=== PATIENT | female | born 1980 | race Caucasian/White ===

== ENCOUNTER 2016-11-09 14:14 | Inpatient (IN) | payer OTHER ==
[~2016-11-09] VITALS: Ht 160 cm; Wt 7.7 kg
[~2016-11-09 14:14] MED LIST changes: -DICL10TA PO; -METO10TA2 PO; -NS 1,000 ML IV SCH; -PROM25SU2 PR; -PROM25TA GT; -PROMETHAZINE 25 MG TAB As Ordered ONE; -PROMETHAZINE INJ 25 MG/ML VIAL (J2550) IM PRN; -PROMETHAZINE INJ 25 MG/ML VIAL (J2550) IV PRN; -SALI0.9I2 IV; -ZOLO25TA PO
[2016-11-09 15:38] LABS: BASO % 0.3 % (0.0-1.0); EOS % 0.5 % (0.0-3.0); LARGE UNSTAINED CELL # 0.2 K/mm3 (0.0-0.4); LYMPH # 1.5 K/mm3 (1.5-4.5); MEAN CORPUSCULAR HGB CONC 33.9 g/dl (32.0-36.5); MEAN CORPUSCULAR VOLUME 82.5 fl (80.0-96.0); MONO # 0.3 K/mm3 (0.0-0.8); MONO % 4.2 % (0.0-5.0); NEUTROPHILS # 5.8 K/mm3 (1.8-7.7); NEUTROPHILS % 73.9 % (36.0-66.0); PLATELET COUNT, AUTOMATED 168 k/mm3 (150-450); RED CELL DISTRIBUTION WIDTH 14.6 % (11.5-14.5); WHITE BLOOD COUNT 7.8 K/mm3 (4.0-10.0)
[2016-11-09 15:42] LABS: CALCIUM OXALATE CRYSTALS SMALL
[2016-11-09 15:57] LABS: ANION GAP 12 MEQ/L (8-16); BLOOD UREA NITROGEN 10 MG/DL (7-18); CALCIUM LEVEL 9.5 MG/DL (8.5-10.1); CARBON DIOXIDE LEVEL 23 MEQ/L (21-32); CHLORIDE LEVEL 104 MEQ/L (98-107); CREATININE FOR GFR 0.57 MG/DL (0.55-1.02); GLOMERULAR FILTRATION RATE > 60.0 (>60); GLUCOSE, FASTING 80 MG/DL (70-105); POTASSIUM SERUM 3.4 MEQ/L (3.5-5.1); SODIUM LEVEL 139 MEQ/L (136-145)
[2016-11-09 17:23] LABS: ALBUMIN 3.6 GM/DL (3.2-5.2); ALBUMIN/GLOBULIN RATIO 0.86 (1.00-1.93); ALKALINE PHOSPHATASE 128 U/L (45-117); ALT/SGPT 32 U/L (12-78); AST/SGOT 17 U/L (15-37); BILIRUBIN,DIRECT 0.2 MG/DL (0.0-0.2); BILIRUBIN,TOTAL 0.6 MG/DL (0.2-1.0); TOTAL PROTEIN 7.8 GM/DL (6.4-8.2)
[2016-11-09] MEDS ORDERED: PROMETHAZINE INJ 25 MG/ML VIAL (J2550) As Ordered ONE (17:43)
[2016-11-09] MEDS: THIAMINE HCL IV SCH (18:15)
[2016-11-09] MEDS: FOLIC ACID IV SCH (18:15)
[2016-11-09] MEDS: MULTIVITAMIN ADULT IV SCH (18:15)
[2016-11-09] MEDS: [UNRECOGNIZED DRUG - OTHER] IV SCH (18:15)
[2016-11-09] MEDS ORDERED: DICL10TA PO ×2 (18:29)
[2016-11-09] MEDS ORDERED: METO10TA2 PO (18:31)
[2016-11-09] MEDS ORDERED: ZOLO25TA PO (18:31)
--- NOTE | 2016-11-09 18:53 | EDDOCDS ---
Nurse's Notes [facility] Name: Althea Ch Age: 36 yrs Sex: Female : 1980 Arrival Date: 11/09/2016 Time: 14:14 Bed I5 / M5 Private MD: Rere Meza A Diagnosis: Hyperemesis gravidarum with metabolic disturbance;Hypokalemia;Dehydration Presentation: 11/09 14:26 Presenting complaint: Patient states: she is severely dehydrated and her OB sent her kcs here for fluids - is scheduled for a PICC line but can't get in until the . Hasn't been able to eat or drink in days. Adult Sepsis Screening: The patient does not have new or worsening altered mentation. Patient's respiratory rate is less than 22. Systolic blood pressure is greater than 100. Patient has a qSOFA score of 0- Negative Sepsis Screen. Suicide/Homicide risk assessment- the patient denies having any suicidal and/or homicidal ideations and does not present with any other emotional, behavioral or mental health complaints. Status: The patient is a dependent. Transition of care: patient was not received from another setting of care. 14:26 Acuity: SAMMY Level 3 kcs 14:26 Method Of Arrival: Walkin/Carried/Asstd kcs Triage Assessment: 14:30 General: Appears comfortable, slender, well developed, well nourished, well groomed, kcs Behavior is cooperative, pleasant. Pain: Location: "kidneys" Pain currently is 3 out of 10 on a pain scale. HIV screening NA for this visit Offered previously. Neurological: Level of Consciousness is awake, alert. Respiratory: Airway is patent Respiratory effort is even, unlabored, Respiratory pattern is regular, symmetrical. Derm: Skin is intact, is healthy with good turgor, Skin is dry, Skin is normal. 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 Diclegis 10-10 mg oral TbEC 2 tabs nightly 2. Diclegis 10-10 mg oral TbEC 1 tab morning and afternoon 3. Reglan Unknown Oral as needed 4. Zoloft 25 mg Oral tab 1 tab once daily - PMHx: Kidney stones; Depression; - PSHx: Tonsillectomy; renal stents; - Social history: Smoking status: Patient states former smoker of tobacco. No barriers to communication noted, The patient speaks fluent Mozambican. - Family history: Not pertinent. - : The pt / caregiver states he / she is not on anticoagulants. Home medication list is obtained from the patient, [employer] import data. - Exposure Risk Screening:: None identified. Screenin:44 Screening information is obtained from the patient. Fall risk: No risks identified. bcj Assistance ADL's: requires no assistance with activities of daily living. Abuse/DV Screen: The patient / caregiver reports he/she is: not in a situation that causes fear, pain or injury. Nutritional screening: No deficits noted. Advance Directives: Currently, there is no health care proxy. home support is adequate. Assessment: 15:44 General: Appears in no apparent distress, comfortable, Behavior is cooperative. Pain: bcj Denies pain. GI: Abdomen is gravid Bowel sounds present X 4 quads. Abd is soft and non tender X 4 quads. 17:40 General: Appears in no apparent distress, pt transferred to [facility] [place] and my care,. GI: mk4 Reports nausea. 18:31 Reassessment: Patient states symptoms have improved. iv banana bag added to IV infusing mk4 . General: Appears in no apparent distress, comfortable. 18:45 Reassessment: Patient states feeling better. Patient states symptoms have improved. mk4 Vital Signs: 14:17 BP 129 / 64; Pulse 92; Resp 18 S; Temp 98.6(O); Pulse Ox 98% on R/A; Weight 74.39 kg gr2 (R); Height 5 ft. 3 in. (160.02 cm); Pain 4/10; 18:44 BP 101 / 54; Pulse 73; Resp 20; Temp 98.3; mk4 14:17 Body Mass Index 29.05 (74.39 kg, 160.02 cm) gr2 Vitals: 14:17 Log In Time: November 09, 2016 at 14:17. gr2 ED Course: 14:16 Patient visited by Brenden Cheung. gr2 14:16 Rere Meza is Private Physician. gr2 14:16 Patient moved to Waiting gr2 14:18 Patient visited by Brenden Cheung. gr2 14:18 Patient moved to Pre RCE gr2 14:28 Triage Initiated kcs 15:04 Patient moved to Triage 1 ar3 15:06 Leonid Moeller PA-C is PHCP. ar2 15:06 Anjelica Arnold MD is Attending Physician. ar2 15:06 Patient visited by Leonid Moeller PA-C. ar2 15:14 Patient moved to PD2 ar3 15:31 UA Sent. ar3 15:31 MED Profile Sent. ar3 15:31 CBC with Diff Sent. ar3 15:44 No apparent distress. Resting quietly. awaiting re-evaluation by ER physician. bcj 15:44 The patient / caregiver is instructed regarding the plan of care and ED course. bcj 15:44 Inserted saline lock: 20 gauge in right antecubital area. Labs drawn. (by ED staff). bcj Sent per order to lab. Urine collected. Clean catch specimen. Urine specimen sent to lab. 15:45 Patient visited by Qamar Wilkerson RN. bcj 16:27 [facility] Payment Agreement was scanned into Exent and attached to record. ks16 17:22 Desire Dejesus MD is Hospitalizing Provider. ar2 17:34 Admission Orders was scanned into Exent and attached to record. lbd 17:40 Patient moved to I5 / M5 srm 18:12 Patient visited by Helen Monroy RN. mk4 18:47 No procedures done that require assistance. mk4 Administered Medications: 15:43 Drug: NS 0.9% 1000 ml [sodium chloride 0.9 % intravenous solution] Route: IV; Rate: bcj bolus; Site: right antecubital; 17:55 Drug: Promethazine 12.5 mg [promethazine 25 mg/mL injection solution (0.5 mL)] Route: mk4 IVP; Site: right antecubital; 18:31 Drug: Banana Bag - (NS 0.9% 1000 ml, folic acid 1 mg, Thiamine 100 mg, Infuvite Adult 1 mk4 amp) Route: IV; Rate: 100 mL/hr; Site: right antecubital; Order Results: Lab Order: CBC with Diff; SPEC'M 11/09/16 15:26 Test: WHITE BLOOD COUNT; Value: 7.8; Range: 4.0-10.0; Units: K/mm3; Status: F Test: RED BLOOD COUNT; Value: 4.82; Range: 4.00-5.40; Units: M/mm3; Status: F Test: HEMOGLOBIN; Value: 13.5; Range: 12.0-16.0; Units: g/dl; Status: F Test: HEMATOCRIT; Value: 39.8; Range: 36.0-47.0; Units: %; Status: F Test: MEAN CORPUSCULAR VOLUME; Value: 82.5; Range: 80.0-96.0; Units: fl; Status: F Test: MEAN CORPUSCULAR HEMOGLOBIN; Value: 28.0; Range: 27.0-33.0; Units: pg; Status: F Test: MEAN CORPUSCULAR HGB CONC; Value: 33.9; Range: 32.0-36.5; Units: g/dl; Status: F Test: RED CELL DISTRIBUTION WIDTH; Value: 14.6; Range: 11.5-14.5; Abnormal: Above high normal; Units: %; Status: F Test: PLATELET COUNT, AUTOMATED; Value: 168; Range: 150-450; Units: k/mm3; Status: F Test: NEUTROPHILS %; Value: 73.9; Range: 36.0-66.0; Abnormal: Above high normal; Units: %; Status: F Test: LYMPH %; Value: 19.0; Range: 24.0-44.0; Abnormal: Below low normal; Units: %; Status: F Test: MONO %; Value: 4.2; Range: 0.0-5.0; Units: %; Status: F Test: EOS %; Value: 0.5; Range: 0.0-3.0; Units: %; Status: F Test: BASO %; Value: 0.3; Range: 0.0-1.0; Units: %; Status: F Test: LARGE UNSTAINED CELL %; Value: 2.0; Range: 0.0-4.0; Units: %; Status: F Test: NEUTROPHILS #; Value: 5.8; Range: 1.8-7.7; Units: K/mm3; Status: F Test: LYMPH #; Value: 1.5; Range: 1.5-4.5; Units: K/mm3; Status: F Test: MONO #; Value: 0.3; Range: 0.0-0.8; Units: K/mm3; Status: F Test: EOS #; Value: 0.0; Range: 0.0-0.50; Units: K/mm3; Status: F Test: BASO #; Value: 0.0; Range: 0.0-0.2; Units: K/mm3; Status: F Test: LARGE UNSTAINED CELL #; Value: 0.2; Range: 0.0-0.4; Units: K/mm3; Status: F Lab Order: MED Profile; SPEC'M 11/09/16 15:26 Test: GLUCOSE, FASTING; Value: 80; Range: 70-105; Units: MG/DL; Status: F Test: BLOOD UREA NITROGEN; Value: 10; Range: 7-18; Units: MG/DL; Status: F Test: CREATININE FOR GFR; Value: 0.57; Range: 0.55-1.02; Units: MG/DL; Status: F Test: GLOMERULAR FILTRATION RATE; Value: > 60.0; Range: >60; Status: F Test: SODIUM LEVEL; Value: 139; Range: 136-145; Units: MEQ/L; Status: F Test: POTASSIUM SERUM; Value: 3.4; Range: 3.5-5.1; Abnormal: Below low normal; Units: MEQ/L; Status: F Test: CHLORIDE LEVEL; Value: 104; Range: 98-107; Units: MEQ/L; Status: F Test: CARBON DIOXIDE LEVEL; Value: 23; Range: 21-32; Units: MEQ/L; Status: F Test: ANION GAP; Value: 12; Range: 8-16; Units: MEQ/L; Status: F Test: CALCIUM LEVEL; Value: 9.5; Range: 8.5-10.1; Units: MG/DL; Status: F Test Note: ; Units are mL/min/1.73 m2 Chronic Kidney Disease Staging per NKF: Stage I & II GFR >=60 Normal to Mildly Decreased Stage III GFR 30-59 Moderately Decreased Stage IV GFR 15-29 Severely Decreased Stage V GFR <15 Very Little GFR Left ESRD GFR <15 on MEDICAL ANTHROPOLOGIST Lab Order: UA; SPEC'M 11/09/16 15:22 Test: APPEARANCE, URINE; Value: HAZY; Range: CLEAR; Status: F Test: COLOR, URINE; Value: TEJA; Range: YELLOW; Status: F Test: PH,URINE; Value: 5.0; Range: 5.0-9.0; Units: UNITS; Status: F Test: SPECIFIC GRAVITY URINE AUTO; Value: 1.028; Range: 1.002-1.035; Status: F Test: PROTEIN, URINE AUTO; Value: 2+; Range: NEGATIVE; Abnormal: Above high normal; Units: mg/dL; Status: F Test: GLUCOSE, URINE (UA) AUTO; Value: NEGATIVE; Range: NEGATIVE; Units: mg/dL; Status: F Test: KETONE, URINE AUTO; Value: 2+; Range: NEGATIVE; Abnormal: Above high normal; Units: mg/dL; Status: F Test: UROBILINOGEN, URINE AUTO; Value: 4.0; Range: 0.0-2.0; Abnormal: Above high normal; Units: mg/dL; Status: F Test: BILIRUBIN, URINE AUTO; Value: 1+; Range: NEGATIVE; Abnormal: Above high normal; Status: F Test: NITRITE, URINE AUTO; Value: NEGATIVE; Range: NEGATIVE; Status: F Test: LEUKOCYTE ESTERASE, URINE AUTO; Value: NEGATIVE; Range: NEGATIVE; Status: F Test: BLOOD, URINE BLOOD; Value: NEGATIVE; Range: NEGATIVE; Status: F Test: WBC, URINE AUTO; Value: 3; Range: 0-3; Units: /HPF; Status: F Test: RBC, URINE AUTO; Value: 4; Range: 0-3; Abnormal: Above high normal; Units: /HPF; Status: F Test: BACTERIA, URINE AUTO; Value: 1+; Range: NEGATIVE; Abnormal: Above high normal; Status: F Test: SQUAMOUS EPITHELIAL CELL UR AU; Value: 8; Range: 0-6; Units: /HPF; Status: F Test: MUCUS, URINE; Value: LARGE; Range: NEGATIVE; Status: F Test: HYALINE CAST, URINE AUTO; Value: 0; Range: 0-1; Units: /LPF; Status: F Test: CALCIUM OXALATE CRYSTALS; Value: SMALL; Range: NONE; Status: F Lab Order: LIVER PROFILE; SPEC'M 11/09/16 15:26 Test: AST/SGOT; Value: 17; Range: 15-37; Units: U/L; Status: F Test: ALT/SGPT; Value: 32; Range: 12-78; Units: U/L; Status: F Test: ALKALINE PHOSPHATASE; Value: 128; Range: 45-117; Abnormal: Above high normal; Units: U/L; Status: F Test: BILIRUBIN,TOTAL; Value: 0.6; Range: 0.2-1.0; Units: MG/DL; Status: F Test: BILIRUBIN,DIRECT; Value: 0.2; Range: 0.0-0.2; Units: MG/DL; Status: F Test: TOTAL PROTEIN; Value: 7.8; Range: 6.4-8.2; Units: GM/DL; Status: F Test: ALBUMIN; Value: 3.6; Range: 3.2-5.2; Units: GM/DL; Status: F Test: ALBUMIN/GLOBULIN RATIO; Value: 0.86; Range: 1.00-1.93; Abnormal: Below low normal; Status: F Outcome: 17:22 Decision to Hospitalize by Provider. ar2 18:46 Discharge Assessment: Patient awake, alert and oriented x 3. No cognitive and/or mk4 functional deficits noted. Patient verbalized understanding of disposition instructions. Patient awake and alert. Discharge Assessment: patient administered narcotics - no. Admitted to Med/Surg The following High Risk Discharge criteria are identified: None. Condition: stable. Ultrasound Study completed. Property sent home with patient. 18:52 Patient left the ED. mk4 Signatures: Ernestine Santo, RN RN Olga Dumont, Java Jsf Developer Unit lbd Qamar Wilkerson RN RN bcj Michelson, Staci RN RN Leonid Pate PA-C PA-C ar2 Treva Dubose, ROCAEL STAVE PLANER TENDER ar3 Brenden Cheung gr2 Helen Monroy RN RN mk4 Valentine Marcelino, Reg Reg ks16 MTDD
--- NOTE | 2016-11-09 18:53 | EDDOCDS ---
Physician Documentation [facility] Name: Althea Ch Age: 36 yrs Sex: Female : 1980 Arrival Date: 11/09/2016 Time: 14:14 Bed I5 / M5 Private MD: Rere Meza A Disposition: 11/09/16 17:22 Hospitalization ordered by Desire Dejesus for Inpatient Admission. Preliminary diagnosis are Hyperemesis gravidarum with metabolic disturbance, Hypokalemia, Dehydration. - Bed requested for Tomeka Post/Ante . - Status is Inpatient Admission. mk4 - Condition is Stable. - Problem is new. - Symptoms are unchanged. Historical: - Allergies: Ceclor (Hives); Erythromycin (Hives); PENICILLINS (Anaphylaxis); SULFA (SULFONAMIDES) (Hives); - Home Meds: 1. Diclegis 10-10 mg oral TbEC 2 tabs nightly 2. Diclegis 10-10 mg oral TbEC 1 tab morning and afternoon 3. Reglan Unknown Oral as needed 4. Zoloft 25 mg Oral tab 1 tab once daily - PMHx: Kidney stones; Depression; - PSHx: Tonsillectomy; renal stents; - Social history: Smoking status: Patient states former smoker of tobacco. No barriers to communication noted, The patient speaks fluent Montenegrin. - Family history: Not pertinent. - : The pt / caregiver states he / she is not on anticoagulants. Home medication list is obtained from the patient, [employer] import data. - Exposure Risk Screening:: None identified. TRANSITION MGR: 11/09 14:30 4, Full Term 3, Premature 0, 0, Living 3, LMP 07/2016 kcs 18:38 LMP 07/27/2016, Verified, EDC 05/03/2017, Gestational age from LMP: 15 weeks 0 mk4 days Vital Signs: 14:17 BP 129 / 64; Pulse 92; Resp 18 S; Temp 98.6(O); Pulse Ox 98% on R/A; Weight 74.39 kg / gr2 164 lbs (R); Height 5 ft. 3 in. (160.02 cm); Pain 4/10; 18:44 BP 101 / 54; Pulse 73; Resp 20; Temp 98.3; mk4 14:17 Body Mass Index 29.05 (74.39 kg, 160.02 cm) gr2 MDM: 15:13 IV Saline Lock ordered. ar2 15:13 NS 0.9% 1000 ml IV at bolus once ordered. ar2 15:13 Heart Tones ordered. ar2 15:13 CBC with Diff Ordered. EDMS 15:13 MED Profile Ordered. EDMS 15:13 UA Ordered. EDMS 16:27 Financial registration complete. ks16 16:27 [facility] Payment Agreement was scanned into Reve[employer] and attached to record. ks16 16:56 CBC with Diff Reviewed. ar2 16:56 MED Profile Reviewed. ar2 16:56 UA Reviewed. ar2 17:09 LIVER PROFILE Ordered. EDMS 17:10 MED Profile Reviewed. ar2 17:21 Banana Bag - (NS 0.9% 1000 ml, folic acid 1 mg, Thiamine 100 mg, Infuvite Adult 1 amp) ar2 IV at 100 mL/hr continuous; *use both vials for Infuvite* ordered. 17:21 Promethazine 12.5 mg IVP once; dilute and administer 30-60 minutes ordered. ar2 17:22 BED REQUEST+ADM ordered. EDMS 17:34 Admission Orders was scanned into Reve[employer] and attached to record. lbd Administered Medications: 15:43 Drug: NS 0.9% 1000 ml [sodium chloride 0.9 % intravenous solution] Route: IV; Rate: bcj bolus; Site: right antecubital; 17:55 Drug: Promethazine 12.5 mg [promethazine 25 mg/mL injection solution (0.5 mL)] Route: mk4 IVP; Site: right antecubital; 18:31 Drug: Banana Bag - (NS 0.9% 1000 ml, folic acid 1 mg, Thiamine 100 mg, Infuvite Adult 1 mk4 amp) Route: IV; Rate: 100 mL/hr; Site: right antecubital; Signatures: Dispatcher [employer] EDMS Ernestine Santo RN RN kcs Daly, Linda, Bucket Wash Operator Unit lbd Qamar Wilkerson RN RN bcj Robertshaw, Aaron, HEMALATHA PAGelacio ar2 Helen Monroy RN RN 4 Allyn Molina RN RN mem Sorenson, Kimberly, Reg Reg ks16 The chart was reviewed and I authenticate all verbal orders and agree with the evaluation and treatment provided.Corrections: (The following items were deleted from the chart) 17:09 17:04 LIVER PROFILE+LAB ordered. EDMS EDMS Attachments: 16:27 [facility] Payment Agreement ks16 17:34 Admission Orders lbd MTDD
[2016-11-10] MEDS ORDERED: PROMETHAZINE 12.5 MG SUPP PR PRN (11:00)
--- NOTE | 2016-11-10 11:31 | HPE ---
DATE OF ADMISSION: 11/09/2016 REASON FOR ADMISSION: Hyperemesis. HISTORY OF PRESENT ILLNESS: Ms. Ch is a 36-year-old, 4, para 3, who presents at 13 weeks 3 days estimated gestational age by first trimester ultrasound with nausea, vomiting. She initially presented to the emergency department for severe dehydration. This has been her fourth visit to the emergency department for nausea, vomiting with . She denies any fever, chills, vaginal bleeding, abdominal pain or cramping. Her course has been remarkable for hyperemesis. She indicated her first trimester has been appropriate. PAST MEDICAL HISTORY: History of depression. History of kidney stones. PAST SURGICAL HISTORY: None. OBSTETRICAL HISTORY: 4, para 3, she has had three term vaginal deliveries she has proved with 8 pounds 10 ounces. Her last was complicated with severe hyperemesis. MEDICATIONS: - Diclegis - Phenergan - Zoloft ALLERGIES: PENICILLIN, SULFA, ERYTHROMYCIN. SOCIAL HISTORY: Denies any alcohol, tobacco or drug use during her . PHYSICAL EXAMINATION: Vital signs are stable. She is afebrile. She has positive heart tones. Her lungs are clear to auscultation bilaterally. Cardiovascular: Heart regular rate and rhythm. Abdomen: Soft, nontender. LABS: Chemistry was remarkable only for hypokalemia with potassium of 3.4. White blood cells were 7.8, hematocrit 39.8, hemoglobin 13.5, platelets 168,000. ASSESSMENT: Ms. Ch is a 36-year-old 4, para 3, at 13 weeks 3 days with hyperemesis. PLAN: 1. Admit for observation and IV hydration. 2. Electrolyte replacement. 3. Assess for a PICC line placement.
[2016-11-10 11:42] LABS: MEAN CORPUSCULAR HEMOGLOBIN 28.2 pg (27.0-33.0); MEAN CORPUSCULAR HGB CONC 34.1 g/dl (32.0-36.5); MEAN CORPUSCULAR VOLUME 82.7 fl (80.0-96.0); RED CELL DISTRIBUTION WIDTH 14.5 % (11.5-14.5); WHITE BLOOD COUNT 6.1 K/mm3 (4.0-10.0)
[2016-11-10] MEDS: PROMETHAZINE 25 MG TAB PO PRN ×2 (12:57→21:15)
[2016-11-10] MEDS: THIAMINE HCL IV SCH (13:00)
[2016-11-10] MEDS: FOLIC ACID IV SCH (13:00)
[2016-11-10] MEDS: [UNRECOGNIZED DRUG - OTHER] IV SCH (13:00)
[2016-11-10] MEDS: MULTIVITAMIN ADULT IV SCH (13:00)
[2016-11-10] MEDS: NS 1,000 ML IV SCH (13:15)
[2016-11-10 18:08] VITALS: BP 115/55
--- NOTE | 2016-11-10 18:41 | REP ---
PICC LINE INSERTION WITH SITE-RITE: The procedure was performed under the direct supervision of Dr. Wharton. The risks and benefits of the procedure were explained to the patient and informed consent was obtained. The patient is 14-weeks and it was decided after having a conversation with Dr. Meza and Dr. Wharton that fluoroscopy would not be used. The catheter would be cut short to provide IV access. The right brachial vein was localized using ultrasound guidance. The skin was prepped and draped in a sterile fashion. 2% Lidocaine was used as a local anesthetic. Using ultrasound guidance the brachial vein was cannulated and a 0.018 guidewire was inserted. The needle was removed and a 4.5-Egyptian dilator and peel-away sheath was inserted over the guidewire. A 4.5-Egyptian single lumen catheter was cut to a length of 21 cm. The dilator was removed and the catheter was inserted over the guidewire. The peel-away sheath was removed and the catheter with flushed with heparinized saline as per hospital protocol. The catheter was affixed to the skin and a sterile dressing was applied. The patient tolerated the procedure well and there were no immediate complications. Reviewed by ELIZABET Parikh 11/11/2016 09:09 AEdited and Signed by Ronen Wharton MD 11/11/2016 03:18 P
[2016-11-10] MEDS: PYRIDOXINE 50 MG TAB PO SCH (21:00)
[2016-11-11 03:00] VITALS: BP 108/61
[2016-11-11] MEDS: PROMETHAZINE 25 MG TAB PO PRN ×3 (07:17→20:08)
[2016-11-11 07:50] LABS: ALBUMIN 2.6 GM/DL (3.2-5.2); ALBUMIN/GLOBULIN RATIO 0.84 (1.00-1.93); ALKALINE PHOSPHATASE 76 U/L (45-117); ALT/SGPT 21 U/L (12-78); ANION GAP 11 MEQ/L (8-16); AST/SGOT 14 U/L (15-37); BILIRUBIN,TOTAL 0.3 MG/DL (0.2-1.0); BLOOD UREA NITROGEN 3 MG/DL (7-18); CALCIUM LEVEL 7.9 MG/DL (8.5-10.1); CARBON DIOXIDE LEVEL 20 MEQ/L (21-32); CHLORIDE LEVEL 109 MEQ/L (98-107); CREATININE FOR GFR 0.32 MG/DL (0.55-1.02); GLOMERULAR FILTRATION RATE > 60.0 (>60); GLUCOSE, FASTING 78 MG/DL (70-105); MAGNESIUM LEVEL 1.7 MG/DL (1.8-2.4); PHOSPHORUS LEVEL 1.9 MG/DL (2.5-4.9); POTASSIUM SERUM 3.2 MEQ/L (3.5-5.1); SODIUM LEVEL 140 MEQ/L (136-145); TOTAL PROTEIN 5.7 GM/DL (6.4-8.2)
[2016-11-11] MEDS ORDERED: PROM25SU2 PR (08:31)
[2016-11-11] MEDS ORDERED: PROM25TA GT (08:33)
[2016-11-11] MEDS: NS 1,000 ML IV SCH (12:34)
[2016-11-11 17:00] VITALS: BP 133/67
--- NOTE | 2016-11-11 17:06 | REP ---
PICC LINE INSERTION WITH ANGELINA: The procedure was performed under the direct supervision of Dr. Wharton. The patient is 14 weeks . The patient did have a PICC line inserted yesterday. However, because we had to put it in the brachial vein, it is likely irritating the nerve and causing pain down her arm. I spoke with Dr. Meza and told him that given that she had had 24 hours worth of hydration, we would likely be able to find a better vein. The patient was then referred for reinsertion of the PICC line. The risks and benefits of the procedure were explained to the patient and informed consent was obtained. The left basilic vein was localized using ultrasound guidance. The skin was prepped and draped in a sterile fashion. 2% lidocaine was used as a local anesthetic. Using ultrasound guidance, the basilic vein was cannulated and a 0.018 guidewire was inserted. The needle was removed and a 4.5 Japanese dilator and peel-away sheath was inserted over the guidewire. A 4.5 Japanese single lumen catheter was cut to a length of 19 cm. The dilator was removed and the catheter was inserted over the guidewire. Again, fluoroscopy was not used given that the patient is only 14 weeks . The catheter was affixed to the skin and a sterile dressing was applied. The patient tolerated the procedure well and there were no immediate complications. Reviewed by ELIZABET Parikh 11/12/2016 07:51 AEdited and Signed by Ronen Wharton MD 11/12/2016 01:25 P
--- NOTE | 2016-11-11 19:53 | EDDOCDS ---
Nurse's Notes [facility] Name: Althea Ch Age: 36 yrs Sex: Female : 1980 Arrival Date: 11/09/2016 Time: 14:14 Bed I5 / M5 Private MD: Rere Meza A Diagnosis: Hyperemesis gravidarum with metabolic disturbance;Hypokalemia;Dehydration Presentation: 11/09 14:26 Presenting complaint: Patient states: she is severely dehydrated and her OB sent her kcs here for fluids - is scheduled for a PICC line but can't get in until the . Hasn't been able to eat or drink in days. Adult Sepsis Screening: The patient does not have new or worsening altered mentation. Patient's respiratory rate is less than 22. Systolic blood pressure is greater than 100. Patient has a qSOFA score of 0- Negative Sepsis Screen. Suicide/Homicide risk assessment- the patient denies having any suicidal and/or homicidal ideations and does not present with any other emotional, behavioral or mental health complaints. Status: The patient is a dependent. Transition of care: patient was not received from another setting of care. 14:26 Acuity: SAMMY Level 3 kcs 14:26 Method Of Arrival: Walkin/Carried/Asstd kcs Triage Assessment: 14:30 General: Appears comfortable, slender, well developed, well nourished, well groomed, kcs Behavior is cooperative, pleasant. Pain: Location: "kidneys" Pain currently is 3 out of 10 on a pain scale. HIV screening NA for this visit Offered previously. Neurological: Level of Consciousness is awake, alert. Respiratory: Airway is patent Respiratory effort is even, unlabored, Respiratory pattern is regular, symmetrical. Derm: Skin is intact, is healthy with good turgor, Skin is dry, Skin is normal. HEDIS SPECIALIST: 14:30 4, Full Term 3, Premature 0, 0, Living 3, LMP 07/2016 kcs 18:38 LMP 07/27/2016, Verified, EDC 05/03/2017, Gestational age from LMP: 15 weeks 0 mk4 days Historical: - Allergies: Ceclor (Hives); Erythromycin (Hives); PENICILLINS (Anaphylaxis); SULFA (SULFONAMIDES) (Hives); - Home Meds: 1. Diclegis 10-10 mg oral TbEC 2 tabs nightly 2. Diclegis 10-10 mg oral TbEC 1 tab morning and afternoon 3. Reglan Unknown Oral as needed 4. Zoloft 25 mg Oral tab 1 tab once daily - PMHx: Kidney stones; Depression; - PSHx: Tonsillectomy; renal stents; - Social history: Smoking status: Patient states former smoker of tobacco. No barriers to communication noted, The patient speaks fluent Vietnamese. - Family history: Not pertinent. - : The pt / caregiver states he / she is not on anticoagulants. Home medication list is obtained from the patient, [employer] import data. - Exposure Risk Screening:: None identified. Screenin:44 Screening information is obtained from the patient. Fall risk: No risks identified. bcj Assistance ADL's: requires no assistance with activities of daily living. Abuse/DV Screen: The patient / caregiver reports he/she is: not in a situation that causes fear, pain or injury. Nutritional screening: No deficits noted. Advance Directives: Currently, there is no health care proxy. home support is adequate. Assessment: 15:44 General: Appears in no apparent distress, comfortable, Behavior is cooperative. Pain: bcj Denies pain. GI: Abdomen is gravid Bowel sounds present X 4 quads. Abd is soft and non tender X 4 quads. 17:40 General: Appears in no apparent distress, [place] [facility] [place] GI: mk4 Reports nausea. 18:31 Reassessment: Patient states symptoms have improved. iv banana bag added to IV infusing mk4 . General: Appears in no apparent distress, comfortable. 18:45 Reassessment: Patient states feeling better. Patient states symptoms have improved. mk4 Vital Signs: 14:17 BP 129 / 64; Pulse 92; Resp 18 S; Temp 98.6(O); Pulse Ox 98% on R/A; Weight 74.39 kg gr2 (R); Height 5 ft. 3 in. (160.02 cm); Pain 4/10; 18:44 BP 101 / 54; Pulse 73; Resp 20; Temp 98.3; mk4 14:17 Body Mass Index 29.05 (74.39 kg, 160.02 cm) gr2 Vitals: 14:17 Log In Time: November 09, 2016 at 14:17. gr2 ED Course: 14:16 Patient visited by Brenden Cheung. gr2 14:16 Rere Meza is Private Physician. gr2 14:16 Patient moved to Waiting gr2 14:18 Patient visited by Brenden Cheung. gr2 14:18 Patient moved to Pre RCE gr2 14:28 Triage Initiated kcs 15:04 Patient moved to Triage 1 ar3 15:06 Leonid Moeller PA-C is PHCP. ar2 15:06 Anjelica Arnold MD is Attending Physician. ar2 15:06 Patient visited by Leonid Moeller PA-C. ar2 15:14 Patient moved to PD ar3 15:31 UA Sent. ar3 15:31 MED Profile Sent. ar3 15:31 CBC with Diff Sent. ar3 15:44 No apparent distress. Resting quietly. awaiting re-evaluation by ER physician. bcj 15:44 The patient / caregiver is instructed regarding the plan of care and ED course. bcj 15:44 Inserted saline lock: 20 gauge in right antecubital area. Labs drawn. (by ED staff). bcj Sent per order to lab. Urine collected. Clean catch specimen. Urine specimen sent to lab. 15:45 Patient visited by Qamar Wilkerson RN. bcj 16:27 [facility] Payment Agreement was scanned into [employer] and attached to record. ks16 17:22 Desire Dejesus MD is Hospitalizing Provider. ar2 17:34 Admission Orders was scanned into [employer] and attached to record. lbd 17:40 Patient moved to I5 / M5 srm 18:12 Patient visited by Helen Monroy RN. mk4 18:47 No procedures done that require assistance. mk4 11/10 11:27 T-Sheet-- Draft Copy was scanned into [employer] and attached to record. gb Administered Medications: 11/09 15:43 Drug: NS 0.9% 1000 ml [sodium chloride 0.9 % intravenous solution] Route: IV; Rate: bcj bolus; Site: right antecubital; 17:55 Drug: Promethazine 12.5 mg [promethazine 25 mg/mL injection solution (0.5 mL)] Route: mk4 IVP; Site: right antecubital; 18:31 Drug: Banana Bag - (NS 0.9% 1000 ml, folic acid 1 mg, Thiamine 100 mg, Infuvite Adult 1 mk4 amp) Route: IV; Rate: 100 mL/hr; Site: right antecubital; Order Results: Lab Order: CBC with Diff; SPEC'M 11/09/16 15:26 Test: WHITE BLOOD COUNT; Value: 7.8; Range: 4.0-10.0; Units: K/mm3; Status: F Test: RED BLOOD COUNT; Value: 4.82; Range: 4.00-5.40; Units: M/mm3; Status: F Test: HEMOGLOBIN; Value: 13.5; Range: 12.0-16.0; Units: g/dl; Status: F Test: HEMATOCRIT; Value: 39.8; Range: 36.0-47.0; Units: %; Status: F Test: MEAN CORPUSCULAR VOLUME; Value: 82.5; Range: 80.0-96.0; Units: fl; Status: F Test: MEAN CORPUSCULAR HEMOGLOBIN; Value: 28.0; Range: 27.0-33.0; Units: pg; Status: F Test: MEAN CORPUSCULAR HGB CONC; Value: 33.9; Range: 32.0-36.5; Units: g/dl; Status: F Test: RED CELL DISTRIBUTION WIDTH; Value: 14.6; Range: 11.5-14.5; Abnormal: Above high normal; Units: %; Status: F Test: PLATELET COUNT, AUTOMATED; Value: 168; Range: 150-450; Units: k/mm3; Status: F Test: NEUTROPHILS %; Value: 73.9; Range: 36.0-66.0; Abnormal: Above high normal; Units: %; Status: F Test: LYMPH %; Value: 19.0; Range: 24.0-44.0; Abnormal: Below low normal; Units: %; Status: F Test: MONO %; Value: 4.2; Range: 0.0-5.0; Units: %; Status: F Test: EOS %; Value: 0.5; Range: 0.0-3.0; Units: %; Status: F Test: BASO %; Value: 0.3; Range: 0.0-1.0; Units: %; Status: F Test: LARGE UNSTAINED CELL %; Value: 2.0; Range: 0.0-4.0; Units: %; Status: F Test: NEUTROPHILS #; Value: 5.8; Range: 1.8-7.7; Units: K/mm3; Status: F Test: LYMPH #; Value: 1.5; Range: 1.5-4.5; Units: K/mm3; Status: F Test: MONO #; Value: 0.3; Range: 0.0-0.8; Units: K/mm3; Status: F Test: EOS #; Value: 0.0; Range: 0.0-0.50; Units: K/mm3; Status: F Test: BASO #; Value: 0.0; Range: 0.0-0.2; Units: K/mm3; Status: F Test: LARGE UNSTAINED CELL #; Value: 0.2; Range: 0.0-0.4; Units: K/mm3; Status: F Lab Order: MED Profile; [facility] 11/09/16 15:26 Test: GLUCOSE, FASTING; Value: 80; Range: 70-105; Units: MG/DL; Status: F Test: BLOOD UREA NITROGEN; Value: 10; Range: 7-18; Units: MG/DL; Status: F Test: CREATININE FOR GFR; Value: 0.57; Range: 0.55-1.02; Units: MG/DL; Status: F Test: GLOMERULAR FILTRATION RATE; Value: > 60.0; Range: >60; Status: F Test: SODIUM LEVEL; Value: 139; Range: 136-145; Units: MEQ/L; Status: F Test: POTASSIUM SERUM; Value: 3.4; Range: 3.5-5.1; Abnormal: Below low normal; Units: MEQ/L; Status: F Test: CHLORIDE LEVEL; Value: 104; Range: 98-107; Units: MEQ/L; Status: F Test: CARBON DIOXIDE LEVEL; Value: 23; Range: 21-32; Units: MEQ/L; Status: F Test: ANION GAP; Value: 12; Range: 8-16; Units: MEQ/L; Status: F Test: CALCIUM LEVEL; Value: 9.5; Range: 8.5-10.1; Units: MG/DL; Status: F Test Note: ; Units are mL/min/1.73 m2 Chronic Kidney Disease Staging per NKF: Stage I & II GFR >=60 Normal to Mildly Decreased Stage III GFR 30-59 Moderately Decreased Stage IV GFR 15-29 Severely Decreased Stage V GFR <15 Very Little GFR Left ESRD GFR <15 on [employer] Lab Order: UA; MEMO 11/09/16 15:22 Test: APPEARANCE, URINE; Value: HAZY; Range: CLEAR; Status: F Test: COLOR, URINE; Value: TEJA; Range: YELLOW; Status: F Test: PH,URINE; Value: 5.0; Range: 5.0-9.0; Units: UNITS; Status: F Test: SPECIFIC GRAVITY URINE AUTO; Value: 1.028; Range: 1.002-1.035; Status: F Test: PROTEIN, URINE AUTO; Value: 2+; Range: NEGATIVE; Abnormal: Above high normal; Units: mg/dL; Status: F Test: GLUCOSE, URINE (UA) AUTO; Value: NEGATIVE; Range: NEGATIVE; Units: mg/dL; Status: F Test: KETONE, URINE AUTO; Value: 2+; Range: NEGATIVE; Abnormal: Above high normal; Units: mg/dL; Status: F Test: UROBILINOGEN, URINE AUTO; Value: 4.0; Range: 0.0-2.0; Abnormal: Above high normal; Units: mg/dL; Status: F Test: BILIRUBIN, URINE AUTO; Value: 1+; Range: NEGATIVE; Abnormal: Above high normal; Status: F Test: NITRITE, URINE AUTO; Value: NEGATIVE; Range: NEGATIVE; Status: F Test: LEUKOCYTE ESTERASE, URINE AUTO; Value: NEGATIVE; Range: NEGATIVE; Status: F Test: BLOOD, URINE BLOOD; Value: NEGATIVE; Range: NEGATIVE; Status: F Test: WBC, URINE AUTO; Value: 3; Range: 0-3; Units: /HPF; Status: F Test: RBC, URINE AUTO; Value: 4; Range: 0-3; Abnormal: Above high normal; Units: /HPF; Status: F Test: BACTERIA, URINE AUTO; Value: 1+; Range: NEGATIVE; Abnormal: Above high normal; Status: F Test: SQUAMOUS EPITHELIAL CELL UR AU; Value: 8; Range: 0-6; Units: /HPF; Status: F Test: MUCUS, URINE; Value: LARGE; Range: NEGATIVE; Status: F Test: HYALINE CAST, URINE AUTO; Value: 0; Range: 0-1; Units: /LPF; Status: F Test: CALCIUM OXALATE CRYSTALS; Value: SMALL; Range: NONE; Status: F Lab Order: LIVER PROFILE; SPEC'M 11/09/16 15:26 Test: AST/SGOT; Value: 17; Range: 15-37; Units: U/L; Status: F Test: ALT/SGPT; Value: 32; Range: 12-78; Units: U/L; Status: F Test: ALKALINE PHOSPHATASE; Value: 128; Range: 45-117; Abnormal: Above high normal; Units: U/L; Status: F Test: BILIRUBIN,TOTAL; Value: 0.6; Range: 0.2-1.0; Units: MG/DL; Status: F Test: BILIRUBIN,DIRECT; Value: 0.2; Range: 0.0-0.2; Units: MG/DL; Status: F Test: TOTAL PROTEIN; Value: 7.8; Range: 6.4-8.2; Units: GM/DL; Status: F Test: ALBUMIN; Value: 3.6; Range: 3.2-5.2; Units: GM/DL; Status: F Test: ALBUMIN/GLOBULIN RATIO; Value: 0.86; Range: 1.00-1.93; Abnormal: Below low normal; Status: F Outcome: 17:22 Decision to Hospitalize by Provider. ar2 18:46 Discharge Assessment: Patient awake, alert and oriented x 3. No cognitive and/or mk4 functional deficits noted. Patient verbalized understanding of disposition instructions. Patient awake and alert. Discharge Assessment: patient administered narcotics - no. Admitted to Med/Surg The following High Risk Discharge criteria are identified: None. Condition: stable. Ultrasound Study completed. Property sent home with patient. 18:52 Patient left the ED. mk4 Signatures: Ernestine Santo, RN RN Olga Dumont, Therapeutic Specialist Unit lbd Qamar Wilkerson RN RN bcj Michelson, Staci, RN RN srm Deb, Zena, Reg Reg gb Leonid Moeller, PA-C PA-C ar2 Treva Dubose, ROCAEL DEBURR TECHNICIAN ar3 Brenden Cheung gr2 Helen Monroy RN RN mk4 Valentine Marcelino, Reg Reg ks16 Chart Complete MTDD
--- NOTE | 2016-11-11 19:53 | EDDOCDS ---
Physician Documentation [facility] Name: Althea Ch Age: 36 yrs Sex: Female : 1980 Arrival Date: 11/09/2016 Time: 14:14 Bed I5 / M5 Private MD: Rere Meza A Disposition: 11/09/16 17:22 Hospitalization ordered by Desire Dejesus for Inpatient Admission. Preliminary diagnosis are Hyperemesis gravidarum with metabolic disturbance, Hypokalemia, Dehydration. - Bed requested for Tomeka Post/Ante . - Status is Inpatient Admission. mk4 - Condition is Stable. - Problem is new. - Symptoms are unchanged. Historical: - Allergies: Ceclor (Hives); Erythromycin (Hives); PENICILLINS (Anaphylaxis); SULFA (SULFONAMIDES) (Hives); - Home Meds: 1. Diclegis 10-10 mg oral TbEC 2 tabs nightly 2. Diclegis 10-10 mg oral TbEC 1 tab morning and afternoon 3. Reglan Unknown Oral as needed 4. Zoloft 25 mg Oral tab 1 tab once daily - PMHx: Kidney stones; Depression; - PSHx: Tonsillectomy; renal stents; - Social history: Smoking status: Patient states former smoker of tobacco. No barriers to communication noted, The patient speaks fluent [place]. - Family history: Not pertinent. - : The pt / caregiver states he / she is not on anticoagulants. Home medication list is obtained from the patient, [employer] import data. - Exposure Risk Screening:: None identified. 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 3 in. (160.02 cm); Pain 4/10; 18:44 BP 101 / 54; Pulse 73; Resp 20; Temp 98.3; mk4 14:17 Body Mass Index 29.05 (74.39 kg, 160.02 cm) gr2 MDM: 15:13 IV Saline Lock ordered. ar2 15:13 NS 0.9% 1000 ml IV at bolus once ordered. ar2 15:13 Heart Tones ordered. ar2 15:13 CBC with Diff Ordered. EDMS 15:13 MED Profile Ordered. EDMS 15:13 UA Ordered. EDMS 16:27 Financial registration complete. ks16 16:27 [facility] Payment Agreement was scanned into [employer] and attached to record. ks16 16:56 CBC with Diff Reviewed. ar2 16:56 MED Profile Reviewed. ar2 16:56 UA Reviewed. ar2 17:09 LIVER PROFILE Ordered. EDMS 17:10 MED Profile Reviewed. ar2 17:21 Banana Bag - (NS 0.9% 1000 ml, folic acid 1 mg, Thiamine 100 mg, Infuvite Adult 1 amp) ar2 IV at 100 mL/hr continuous; *use both vials for Infuvite* ordered. 17:21 Promethazine 12.5 mg IVP once; dilute and administer 30-60 minutes ordered. ar2 17:22 BED REQUEST+ADM ordered. EDMS 17:34 Admission Orders was scanned into [employer] and attached to record. lbd 11/10 11:27 T-Sheet-- Draft Copy was scanned into [employer] and attached to record. gb Administered Medications: 11/09 15:43 Drug: NS 0.9% 1000 ml [sodium chloride 0.9 % intravenous solution] Route: IV; Rate: bcj bolus; Site: right antecubital; 17:55 Drug: Promethazine 12.5 mg [promethazine 25 mg/mL injection solution (0.5 mL)] Route: mk4 IVP; Site: right antecubital; 18:31 Drug: Banana Bag - (NS 0.9% 1000 ml, folic acid 1 mg, Thiamine 100 mg, Infuvite Adult 1 mk4 amp) Route: IV; Rate: 100 mL/hr; Site: right antecubital; Signatures: [employer]patcher [employer] EDMS Ernestine Santo, Olga Rosa RN, Investor Relations Specialist Unit lbd Qamar Wilkerson RN RN bcj Barnhardt, Gloria, Reg Reg gb Leonid Moeller, HEMALATHA PAGelacio ar2 Helen Monroy RN RN mk4 Allyn Molina RN RN Valentine Amin, Reg Reg ks16 The chart was reviewed and I authenticate all verbal orders and agree with the evaluation and treatment provided.Corrections: (The following items were deleted from the chart) 17:09 17:04 LIVER PROFILE+LAB ordered. EDMS EDMS Attachments: 16:27 [facility] Payment Agreement [email or web address] 17:34 Admission Orders lbd 11/10 11:27 T-Sheet-- Draft Copy gb Chart Complete MTDD
--- NOTE | 2016-11-11 19:53 | EDDOCDS ---
Physician Documentation [facility] Name: Althea Ch Age: 36 yrs Sex: Female : 1980 Arrival Date: 11/09/2016 Time: 14:14 Bed I5 / M5 Private MD: Rere Meza A Disposition: 11/09/16 17:22 Hospitalization ordered by Desire Dejesus for Inpatient Admission. Preliminary diagnosis are Hyperemesis gravidarum with metabolic disturbance, Hypokalemia, Dehydration. - Bed requested for Tomeka Post/Ante . - Status is Inpatient Admission. mk4 - Condition is Stable. - Problem is new. - Symptoms are unchanged. Historical: - Allergies: Ceclor (Hives); Erythromycin (Hives); PENICILLINS (Anaphylaxis); SULFA (SULFONAMIDES) (Hives); - Home Meds: 1. Diclegis 10-10 mg oral TbEC 2 tabs nightly 2. Diclegis 10-10 mg oral TbEC 1 tab morning and afternoon 3. Reglan Unknown Oral as needed 4. Zoloft 25 mg Oral tab 1 tab once daily - PMHx: Kidney stones; Depression; - PSHx: Tonsillectomy; renal stents; - Social history: Smoking status: Patient states former smoker of tobacco. No barriers to communication noted, The patient speaks fluent Surinamese. - Family history: Not pertinent. - : The pt / caregiver states he / she is not on anticoagulants. Home medication list is obtained from the patient, [employer] import data. - Exposure Risk Screening:: None identified. CIRCULAR STUFFER: 11/09 14:30 4, Full Term 3, Premature 0, 0, Living 3, LMP 07/2016 kcs 18:38 LMP 07/27/2016, Verified, EDC 05/03/2017, Gestational age from LMP: 15 weeks 0 mk4 days Vital Signs: 14:17 BP 129 / 64; Pulse 92; Resp 18 S; Temp 98.6(O); Pulse Ox 98% on R/A; Weight 74.39 kg / gr2 164 lbs (R); Height 5 ft. 3 in. (160.02 cm); Pain 4/10; 18:44 BP 101 / 54; Pulse 73; Resp 20; Temp 98.3; mk4 14:17 Body Mass Index 29.05 (74.39 kg, 160.02 cm) gr2 MDM: 15:13 IV Saline Lock ordered. ar2 15:13 NS 0.9% 1000 ml IV at bolus once ordered. ar2 15:13 Heart Tones ordered. ar2 15:13 CBC with Diff Ordered. EDMS 15:13 MED Profile Ordered. EDMS 15:13 UA Ordered. EDMS 16:27 Financial registration complete. ks16 16:27 [facility] Payment Agreement was scanned into [employer] and attached to record. ks16 16:56 CBC with Diff Reviewed. ar2 16:56 MED Profile Reviewed. ar2 16:56 UA Reviewed. ar2 17:09 LIVER PROFILE Ordered. EDMS 17:10 MED Profile Reviewed. ar2 17:21 Banana Bag - (NS 0.9% 1000 ml, folic acid 1 mg, Thiamine 100 mg, Infuvite Adult 1 amp) ar2 IV at 100 mL/hr continuous; *use both vials for Infuvite* ordered. 17:21 Promethazine 12.5 mg IVP once; dilute and administer 30-60 minutes ordered. ar2 17:22 BED REQUEST+ADM ordered. EDMS 17:34 Admission Orders was scanned into [employer] and attached to record. lbd 11/10 11:27 T-Sheet-- Draft Copy was scanned into [employer] and attached to record. gb Administered Medications: 11/09 15:43 Drug: NS 0.9% 1000 ml [sodium chloride 0.9 % intravenous solution] Route: IV; Rate: bcj bolus; Site: right antecubital; 17:55 Drug: Promethazine 12.5 mg [promethazine 25 mg/mL injection solution (0.5 mL)] Route: mk4 IVP; Site: right antecubital; 18:31 Drug: Banana Bag - (NS 0.9% 1000 ml, folic acid 1 mg, Thiamine 100 mg, Infuvite Adult 1 mk4 amp) Route: IV; Rate: 100 mL/hr; Site: right antecubital; Signatures: Dispatcher [employer] EDMS Ernestine Santo, Olga Rosa RN, Printing Manager Unit lbd Qamar Wilkerson RN RN bcj Barnhardt, Gloria, Reg Reg gb Leonid Moeller, HEMALATHA PAGelacio ar2 Helen Monroy RN RN mk4 Allyn Molina RN RN Valentine Amin, Reg Reg ks16 The chart was reviewed and I authenticate all verbal orders and agree with the evaluation and treatment provided.Corrections: (The following items were deleted from the chart) 17:09 17:04 LIVER PROFILE+LAB ordered. EDMS EDMS Attachments: 16:27 [facility] Payment Agreement [email or web address] 17:34 Admission Orders lbd 11/10 11:27 T-Sheet-- Draft Copy gb Chart Complete MTDD
[2016-11-11] MEDS: PYRIDOXINE 50 MG TAB PO SCH (21:59)
[2016-11-11 22:21] VITALS: BP 106/59
[2016-11-12 05:07] VITALS: BP 119/58
[2016-11-12] MEDS ORDERED: METOCLOPRAMIDE INJ 10MG/2ML VIAL (J2765) ONE (06:26)
[2016-11-12] MEDS ORDERED: PROMETHAZINE INJ 25 MG/ML VIAL (J2550) ONE (06:27)
[2016-11-12] MEDS: NS 1,000 ML IV SCH (06:40)
[2016-11-12 07:18] LABS: ALBUMIN 2.7 GM/DL (3.2-5.2); ALKALINE PHOSPHATASE 78 U/L (45-117); ALT/SGPT 19 U/L (12-78); ANION GAP 10 MEQ/L (8-16); AST/SGOT 11 U/L (15-37); BILIRUBIN,TOTAL 0.2 MG/DL (0.2-1.0); BLOOD UREA NITROGEN 4 MG/DL (7-18); CALCIUM LEVEL 7.8 MG/DL (8.5-10.1); CARBON DIOXIDE LEVEL 22 MEQ/L (21-32); CHLORIDE LEVEL 109 MEQ/L (98-107); CREATININE FOR GFR 0.49 MG/DL (0.55-1.02); GLUCOSE, FASTING 92 MG/DL (70-105); POTASSIUM SERUM 3.2 MEQ/L (3.5-5.1); SODIUM LEVEL 141 MEQ/L (136-145); TOTAL PROTEIN 5.7 GM/DL (6.4-8.2)
[2016-11-12 07:21] LABS: GLOMERULAR FILTRATION RATE > 60.0 (>60)
[2016-11-12] MEDS: PROMETHAZINE 25 MG TAB PO PRN ×2 (08:02→15:26)
[2016-11-12] MEDS ORDERED: SALI0.9I2 IV (09:15)
[2016-11-12] MEDS ORDERED: SODIUM CHLORIDE 0.9% INJ 10 ML SYR IV PRN (12:00)
--- NOTE | 2016-11-12 15:34 | DSES ---
DATE OF ADMISSION: 11/10/2016 DATE OF DISCHARGE: 11/12/2016 DISCHARGE DIAGNOSIS: Hyperemesis gravidarum, stable at this time. Peripherally inserted central catheter (PICC) line placed. HISTORY: Ms. Ch is a 36-year-old 4, para 3 who presented at 13+ weeks in the first trimester with severe nausea and vomiting of . She had tried multiple anti nausea medications without success. The decision was made to have a PICC line placed on 11/10/2016. She tolerated that well and her nausea somewhat improved. On 11/11/2016, she complained of severe right arm pain related to the PICC placement. The decision was made to have the PICC line removed and a new one reinserted in her left arm. This morning, she tells me that the pain in her right arm is completely resolved and denies any pain in her left arm. Her nausea has been reasonably controlled. She has eaten small meals and tolerated fluids and has retained them. Her vital signs are stable. Temperature 97.8, pulse 68, respirations 18, blood pressure is 119/58. PLAN: Discharge the patient to home. Medications have already been set by Dr. Meza, include likely just Phenergan and Zoloft. She is to continue the TPN through her PICC line. Medications will be sent to [facility]. I did review access to care and danger signs to report to her obstetric provider. She agrees with the plan and she will be leaving today. Edited: [facility] 11/13/2016 1441 MTDD
[2016-11-12] MEDS ORDERED: SODIUM CHLORIDE 0.9% INJ 10 ML SYR IV SCH (18:00)
== END 2016-11-12 15:25 | disposition home or self-care (01) | DRG 781 ==
LOC: M ED 14:14 → M OBS 19:14 → OBSVTOIN 11-10 11:10 → M OBS 11-10 18:09
PROVIDERS: ADMIT Obstetrics & Gynecology; ATTEND Obstetrics & Gynecology
PROC: 05H933Z Insertion of Infusion Device into Right Brachial Vein, Percutaneous Approach (ICD-10-PCS; principal; 2016-11-10)
PROC: 05HA33Z Insertion of Infusion Device into Left Brachial Vein, Percutaneous Approach (ICD-10-PCS; 2016-11-11)
DX: O21.0 Mild hyperemesis gravidarum (principal); Z3A.13 13 weeks gestation of pregnancy; O09.512 Supervision of elderly primigravida, second trimester; O26.892 Other specified pregnancy related conditions, second trimester; M79.621 Pain in right upper arm; Z88.0 Allergy status to penicillin; Z88.2 Allergy status to sulfonamides; Z88.1 Allergy status to other antibiotic agents

== ENCOUNTER → 2016-11-09 | Outpatient (CLI) | payer OTHER ==
[~2016-11-09] MED LIST: /MOM400 PO; /ONDA4TA PO; ACEP120S4 PR; ACET12SU PR; ACET50TA PO; ANUS2.5C2 EXT; DICL10TA PO; DOCU10ELUD PO; HEPA100SYR IV; IBUP600T26 PO; MACR100C3 PO; METO10TA2 PO; NS 1,000 ML IV SCH; OXYB5TAB80 PO; PERCOCET PO; PRENTAB74 PO; PROM25SU2 PR; PROM25TA GT; PROM25TA PO; PROMETHAZINE 25 MG TAB As Ordered ONE; PROMETHAZINE INJ 25 MG/ML VIAL (J2550) IM PRN; PROMETHAZINE INJ 25 MG/ML VIAL (J2550) IV PRN; REGL10TA6 PO; SALI0.9I2 IV; SLF IV; VICOBULK PO; ZOFR4TAB3 PO; ZOLO25TA PO; [UNRECOGNIZED DRUG - CODE] IVFLUSH
[2016-11-09 19:14] VITALS: BP 125/74
[2016-11-09 22:05] VITALS: BP 117/55
[2016-11-09] MEDS: METOCLOPRAMIDE INJ 10MG/2ML VIAL (J2765) IV PRN (22:17)
[2016-11-10 05:33] VITALS: BP 111/54
[2016-11-10 07:15] LABS: ALBUMIN 2.7 GM/DL (3.2-5.2); ALBUMIN/GLOBULIN RATIO 0.93 (1.00-1.93); ALKALINE PHOSPHATASE 79 U/L (45-117); ALT/SGPT 21 U/L (12-78); ANION GAP 11 MEQ/L (8-16); AST/SGOT 10 U/L (15-37); BILIRUBIN,TOTAL 0.6 MG/DL (0.2-1.0); BLOOD UREA NITROGEN 7 MG/DL (7-18); CARBON DIOXIDE LEVEL 20 MEQ/L (21-32); CHLORIDE LEVEL 110 MEQ/L (98-107); CREATININE FOR GFR 0.44 MG/DL (0.55-1.02); GLOMERULAR FILTRATION RATE > 60.0 (>60); GLUCOSE, FASTING 78 MG/DL (70-105); POTASSIUM SERUM 3.8 MEQ/L (3.5-5.1); SODIUM LEVEL 141 MEQ/L (136-145); TOTAL PROTEIN 5.6 GM/DL (6.4-8.2)
[2016-11-10] MEDS: METOCLOPRAMIDE INJ 10MG/2ML VIAL (J2765) IV PRN (10:01)
[2016-11-10 14:00] VITALS: BP 116/57
[2016-11-10 21:16] VITALS: BP 111/64
== END ==
LOC: M LDO 19:12
PROVIDERS: ATTEND Obstetrics & Gynecology
DX: O21.1 Hyperemesis gravidarum with metabolic disturbance (principal); Z3A.13 13 weeks gestation of pregnancy; E86.0 Dehydration; Z88.0 Allergy status to penicillin; Z88.1 Allergy status to other antibiotic agents; Z88.2 Allergy status to sulfonamides; O99.281 Endocrine, nutritional and metabolic diseases complicating pregnancy, first trimester

== ENCOUNTER 2016-11-18 18:51 | Emergency (ER) | payer OTHER ==
[~2016-11-18 18:51] MED LIST changes: +DICL10TA PO; +METO10TA2 PO; +PROM25SU2 PR; +PROM25TA GT; +SALI0.9I2 IV; +ZOLO25TA PO
[2016-11-18] MEDS ORDERED: METOCLOPRAMIDE INJ 10MG/2ML VIAL (J2765) As Ordered ONE (20:21)
--- NOTE | 2016-11-18 22:51 | EDDOCDS ---
Nurse's Notes [facility] Name: Althea Ch Age: 36 yrs Sex: Female : 1980 Arrival Date: 11/18/2016 Time: 18:51 Bed 11 Private MD: Cleveland Chapman D Diagnosis: Mild hyperemesis gravidarum Presentation: 11/18 19:17 Presenting complaint: Patient states: "Dr. Solorio wanted me to go to [facility] today to ld5 get some fluids but they didn't have any beds. I called again and they still don't have any beds. So I'm here for fluids." Pt reports nausea and vomiting throughout . States 15 weeks . Pt has PICC line just for fluids. Adult Sepsis Screening: The patient does not have new or worsening altered mentation. Patient's respiratory rate is less than 22. Systolic blood pressure is greater than 100. Patient has a qSOFA score of 0- Negative Sepsis Screen. Suicide/Homicide risk assessment- the patient denies having any suicidal and/or homicidal ideations and does not present with any other emotional, behavioral or mental health complaints. Status: The patient is a dependent. Transition of care: patient was not received from another setting of care. 19:17 Acuity: SAMMY Level 3 ld5 19:17 Method Of Arrival: Walkin/Carried/Asstd ld5 Triage Assessment: 19:20 General: Appears in no apparent distress. Pain: Denies pain. HIV screening NA for this ld5 visit Offered previously. Neurological: Level of Consciousness is awake, alert. Respiratory: Airway is patent Respiratory effort is even, unlabored. GI: Reports nausea, vomiting, intolerance of food, intolerance of fluids, since 2 days ago. 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 Pt reports LMP was in July. Pt reports 14 weeks 5 days ld5 Historical: - Allergies: Ceclor (Hives); Erythromycin (Hives); PENICILLINS (Anaphylaxis); SULFA (SULFONAMIDES) (Hives); - Home Meds: 1. Diclegis 10-10 mg oral TbEC 1 tab morning and afternoon (Last dose: 11/18/2016 15:00) 2. Diclegis 10-10 mg oral TbEC 2 tabs nightly (Last dose: 11/17/2016) 3. Phenergan 25 mg Oral tab 1 tab every 6 hours (Last dose: 11/18/2016 18:00) 4. Zoloft 25 mg Oral tab 1 tab once daily (Last dose: 11/17/2016) 5. Reglan Oral as needed - PMHx: Depression; Kidney stones; - PSHx: Tonsillectomy; PICC line placement; - Social history: Smoking status: Patient states former smoker of tobacco. No barriers to communication noted, The patient speaks fluent Bahamian, Speaks appropriately for age. - Family history: Not pertinent. - : The pt / caregiver states he / she is not on anticoagulants. Home medication list is obtained from the patient. - Exposure Risk Screening:: None identified. Screenin:30 Screening information is obtained from the patient. Fall risk: No risks identified. mlc Assistance ADL's: requires no assistance with activities of daily living. Abuse/DV Screen: The patient / caregiver reports he/she is: not in a situation that causes fear, pain or injury. Nutritional screening: No deficits noted. home support is adequate. 22:48 Advance Directives: Currently, there is no health care proxy. mlc Assessment: 20:30 General: Appears in no apparent distress, comfortable, Behavior is cooperative, mlc pleasant. Pain: Denies pain. Neurological: Level of Consciousness is awake, alert, Oriented to person, place, time. Respiratory: Airway is patent Respiratory effort is even, unlabored, Respiratory pattern is regular. GI: Abdomen is non- distended Bowel sounds present X 4 quads. Abd is soft and non tender X 4 quads. Reports nausea, vomiting. Derm: Skin is normal. 20:47 General: In to obtain heart tones, patient stated that the doctor earlier could jmb not find them through doppler and had to perform ultrasound. This ad writer asked patient how far along she was and identified at 15 weeks she would be around umbilical region, patient stated ok. Asked patient where doctor found heart tones and patient reports in pelvic region. Started doppler at pelvis and unable to obtain other than aortic sounds, moved doppler to left side of patient, started to heart heart tones, display showed ranges of 134-154. Last heart rate shown was 154 and documented. Informed patient of heart tones and normal ranges of 120-160 for norm. Patient stated ok. . 22:07 Reassessment: Patient appears in no apparent distress at this time. Patient states mlc symptoms have not improved. no changes since prior. resp easy/unlabored. IV fluids infusing per order. 22:48 General: Appears in no apparent distress, comfortable, Behavior is cooperative. Pain: mlc Denies pain. Neurological: Level of Consciousness is awake, alert, Oriented to person, place, time. Respiratory: Airway is patent Respiratory effort is even, unlabored, Respiratory pattern is regular. Derm: Skin is normal. Vital Signs: 18:53 BP 136 / 70; Pulse 96; Resp 16; Temp 97.2(O); Pulse Ox 98% ; Weight 75.3 kg; Height 5 cmb ft. 2 in. (157.48 cm); Pain 0/10; 22:48 BP 109 / 72; Pulse 79; Resp 18; Temp 98.9; Pulse Ox 99% ; Pain 0/10; mlc 18:53 Body Mass Index 30.36 (75.30 kg, 157.48 cm) cmb Vitals: 18:53 Log In Time: November 18, 2016 at 18:51. cmb 20:47 Heart Tones 154BPM. jmb ED Course: 18:52 Patient visited by Lety Llanes. cmb 18:52 Patient moved to Waiting cmb 18:53 Cleveland Chapman is Private Physician. cmb 18:54 Patient moved to Pre RCE cmb 19:19 Triage Initiated ld5 19:22 Patient visited by Geovanna Washington,KANU. ld5 19:58 Dolly Whyte,RN is Primary Nurse. cz 19:58 Patient moved to 11 cz 20:06 Genaro Sargent FNP [facility]. ke 20:06 Patient visited by Genaro Sargent FNP. ke 20:06 Patient visited by Genaro Sargent FNP. ke 20:30 The patient / caregiver is instructed regarding the plan of care and ED course. mlc 20:30 Accessed PICC line in patient's left bicep. Clean & dry. Dressing intact. Flushes mlc easily. 20:31 Patient visited by Dolly Whyte,KANU. mlc 20:51 Patient visited by Dave Alonzo,KANU. jmb 21:24 Patient visited by Genaro Sargent FNP. ke 21:54 Patient visited by Genaro Sargent FNP. ke 21:56 Patient visited by Emanuel Ayala PCA. kb5 22:08 Patient visited by Dolly Whyte RN. mlc 22:38 Rohan Solorio MD is Referral Physician. ke 22:48 No procedures done that require assistance. mlc 22:48 Flushed PICC line. mlc Administered Medications: 20:29 Drug: Metoclopramide 10 mg [metoclopramide 5 mg/mL injection solution] Route: IV; Rate: mlc 40 mg/hr; Infused Over: 15 mins; Site: left upper arm; 22:46 Follow up: IV Status: Completed infusion mlc 20:30 Drug: NS 0.9% 1000 ml [sodium chloride 0.9 % intravenous solution] Route: IV; Rate: mlc bolus; Site: left upper arm; 22:46 Follow up: IV Status: Completed infusion mlc 22:47 Drug: heparin 100units/mL flush (PICC line) 2 ml [heparin flush (porcine) 100 unit/mL mlc in 0.9 % sodium chloride IV kit (2 mL)] Route: IVP; Site: left upper arm; Order Results: There are currently no results for this order. Outcome: 22:39 Discharge ordered by Provider. ke 22:48 Discharge Assessment: Patient awake, alert and oriented x 3. No cognitive and/or mlc functional deficits noted. Patient verbalized understanding of disposition instructions. patient administered narcotics - no. The following High Risk Discharge criteria are identified: None. Discharged to home with family. Condition: good Condition: stable. Discharge instructions given to patient, Instructed on discharge instructions, Demonstrated understanding of instructions, Pt was receptive of discharge instructions/ teaching. No special radiology studies were completed. Property sent home with patient. 22:50 Patient left the ED. mlc Signatures: Grady Rodriguez, RN RN Genaro Martinez, LOSS CONTROL ENGINEER LOSS CONTROL ENGINEER Emanuel Worley, MOLDER HELPER MOLDER HELPER kb5 Geovanna Washington RN RN ld5 Lety Llanes Joshua, RN RN jmb Booth, Mandy, RN RN mlc Corrections: (The following items were deleted from the chart) 19:22 19:17 Presenting complaint: Patient states: "Dr. Solorio wanted me to go to [facility] ld5 today to get some fluids but they didn't have any beds. I called again and they still don't have any beds. So I'm here for fluids." Pt reports nausea and vomiting throughout . States 15 weeks ld5 MTDD
--- NOTE | 2016-11-18 22:51 | EDDOCDS ---
Physician Documentation [facility] Name: Althea Ch Age: 36 yrs Sex: Female : 1980 Arrival Date: 11/18/2016 Time: 18:51 Bed 11 Private MD: Cleveland Chapman D Disposition: 11/18/16 22:39 Discharged to Home/Self Care. Impression: Mild hyperemesis gravidarum. - Condition is Stable. - Discharge Instructions: Hyperemesis Gravidarum. - Medication Reconciliation, Local Pharmacy Hours form. - Follow up: Rohan Solorio MD; When: 2 - 3 days; Reason: Recheck today's complaints, Continuance of care. - Problem is an ongoing problem. - Symptoms are unchanged. Historical: - Allergies: Ceclor (Hives); Erythromycin (Hives); PENICILLINS (Anaphylaxis); SULFA (SULFONAMIDES) (Hives); - Home Meds: 1. Diclegis 10-10 mg oral TbEC 1 tab morning and afternoon (Last dose: 11/18/2016 15:00) 2. Diclegis 10-10 mg oral TbEC 2 tabs nightly (Last dose: 11/17/2016) 3. Phenergan 25 mg Oral tab 1 tab every 6 hours (Last dose: 11/18/2016 18:00) 4. Zoloft 25 mg Oral tab 1 tab once daily (Last dose: 11/17/2016) 5. Reglan Oral as needed - PMHx: Depression; Kidney stones; - PSHx: Tonsillectomy; PICC line placement; - Social history: Smoking status: Patient states former smoker of tobacco. No barriers to communication noted, The patient speaks fluent Citizen Of [place], Speaks appropriately for age. - Family history: Not pertinent. - : The pt / caregiver states he / she is not on anticoagulants. Home medication list is obtained from the patient. - Exposure Risk Screening:: None identified. 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 Pt reports LMP was in July. Pt reports 14 weeks 5 days ld5 Vital Signs: 18:53 BP 136 / 70; Pulse 96; Resp 16; Temp 97.2(O); Pulse Ox 98% ; Weight 75.3 kg / 166.01 cmb lbs; Height 5 ft. 2 in. (157.48 cm); Pain 0/10; 22:48 BP 109 / 72; Pulse 79; Resp 18; Temp 98.9; Pulse Ox 99% ; Pain 0/10; mlc 18:53 Body Mass Index 30.36 (75.30 kg, 157.48 cm) cmb MDM: 20:13 Heart Tones ordered. ke 20:13 NS 0.9% 1000 ml IV at bolus once ordered. ke 20:13 Misc. Nursing Order ordered. ke 20:13 Metoclopramide 10 mg IV at 40 mg/hr once over 15 mins ordered. ke 22:47 heparin 100units/mL flush (PICC line) 2 ml IVP once; flush each port first with 10mL of mlc NS followed by heparin ordered. Administered Medications: 20:29 Drug: Metoclopramide 10 mg [metoclopramide 5 mg/mL injection solution] Route: IV; Rate: mlc 40 mg/hr; Infused Over: 15 mins; Site: left upper arm; 22:46 Follow up: IV Status: Completed infusion mlc 20:30 Drug: NS 0.9% 1000 ml [sodium chloride 0.9 % intravenous solution] Route: IV; Rate: mlc bolus; Site: left upper arm; 22:46 Follow up: IV Status: Completed infusion mlc 22:47 Drug: heparin 100units/mL flush (PICC line) 2 ml [heparin flush (porcine) 100 unit/mL mlc in 0.9 % sodium chloride IV kit (2 mL)] Route: IVP; Site: left upper arm; Signatures: Genaro Sargent FNP FNP ke Dickerson, Laura, RN RN 5 Dolly Whyte,KANU BOBBY mlc MTDD
--- NOTE | 2016-11-20 23:51 | EDDOCDS ---
Physician Documentation [facility] Name: Althea Ch Age: 36 yrs Sex: Female : 1980 Arrival Date: 11/18/2016 Time: 18:51 Bed 11 Private MD: Cleveland Chapman D Disposition: 11/18/16 22:39 Discharged to Home/Self Care. Impression: Mild hyperemesis gravidarum. - Condition is Stable. - Discharge Instructions: Hyperemesis Gravidarum. - Medication Reconciliation, Local Pharmacy Hours form. - Follow up: Rohan Solorio MD; When: 2 - 3 days; Reason: Recheck today's complaints, Continuance of care. - Problem is an ongoing problem. - Symptoms are unchanged. Historical: - Allergies: Ceclor (Hives); Erythromycin (Hives); PENICILLINS (Anaphylaxis); SULFA (SULFONAMIDES) (Hives); - Home Meds: 1. Diclegis 10-10 mg oral TbEC 1 tab morning and afternoon (Last dose: 11/18/2016 15:00) 2. Diclegis 10-10 mg oral TbEC 2 tabs nightly (Last dose: 11/17/2016) 3. Phenergan 25 mg Oral tab 1 tab every 6 hours (Last dose: 11/18/2016 18:00) 4. Zoloft 25 mg Oral tab 1 tab once daily (Last dose: 11/17/2016) 5. Reglan Oral as needed - PMHx: Depression; Kidney stones; - PSHx: Tonsillectomy; PICC line placement; - Social history: Smoking status: Patient states former smoker of tobacco. No barriers to communication noted, The patient speaks fluent Algerian, Speaks appropriately for age. - Family history: Not pertinent. - : The pt / caregiver states he / she is not on anticoagulants. Home medication list is obtained from the patient. - Exposure Risk Screening:: None identified. 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 Pt reports LMP was in July. Pt reports 14 weeks 5 days ld5 Vital Signs: 18:53 BP 136 / 70; Pulse 96; Resp 16; Temp 97.2(O); Pulse Ox 98% ; Weight 75.3 kg / 166.01 cmb lbs; Height 5 ft. 2 in. (157.48 cm); Pain 0/10; 22:48 BP 109 / 72; Pulse 79; Resp 18; Temp 98.9; Pulse Ox 99% ; Pain 0/10; mlc 18:53 Body Mass Index 30.36 (75.30 kg, 157.48 cm) cmb MDM: 20:13 Heart Tones ordered. ke 20:13 NS 0.9% 1000 ml IV at bolus once ordered. ke 20:13 Misc. Nursing Order ordered. ke 20:13 Metoclopramide 10 mg IV at 40 mg/hr once over 15 mins ordered. ke 22:47 heparin 100units/mL flush (PICC line) 2 ml IVP once; flush each port first with 10mL of mlc NS followed by heparin ordered. 11/19 10: T-Sheet-- Draft Copy was scanned into [facility] and attached to record. gb Administered Medications: 11/18 20:29 Drug: Metoclopramide 10 mg [metoclopramide 5 mg/mL injection solution] Route: IV; Rate: mlc 40 mg/hr; Infused Over: 15 mins; Site: left upper arm; 22:46 Follow up: IV Status: Completed infusion mlc 20:30 Drug: NS 0.9% 1000 ml [sodium chloride 0.9 % intravenous solution] Route: IV; Rate: mlc bolus; Site: left upper arm; 22:46 Follow up: IV Status: Completed infusion mlc 22:47 Drug: heparin 100units/mL flush (PICC line) 2 ml [heparin flush (porcine) 100 unit/mL mlc in 0.9 % sodium chloride IV kit (2 mL)] Route: IVP; Site: left upper arm; Signatures: Zena Boyd, Reg Reg Genaro Flynn, COMEDIAN COMEDIAN Geovanna WinterRN RN jose de jesus5 Dolly Whyte RN RN mlc The chart was reviewed and I authenticate all verbal orders and agree with the evaluation and treatment provided.Attachments: 11/19 10: T-Sheet-- Draft Copy gb Chart Complete MTDD
--- NOTE | 2016-11-20 23:51 | EDDOCDS ---
Nurse's Notes [facility] Name: Althea Ch Age: 36 yrs Sex: Female : 1980 Arrival Date: 11/18/2016 Time: 18:51 Bed 11 Private MD: Cleveland Chapman D Diagnosis: Mild hyperemesis gravidarum Presentation: 11/18 19:17 Presenting complaint: Patient states: "Dr. Solorio wanted me to go to [facility] today to ld5 get some fluids but they didn't have any beds. I called again and they still don't have any beds. So I'm here for fluids." Pt reports nausea and vomiting throughout . States 15 weeks . Pt has PICC line just for fluids. Adult Sepsis Screening: The patient does not have new or worsening altered mentation. Patient's respiratory rate is less than 22. Systolic blood pressure is greater than 100. Patient has a qSOFA score of 0- Negative Sepsis Screen. Suicide/Homicide risk assessment- the patient denies having any suicidal and/or homicidal ideations and does not present with any other emotional, behavioral or mental health complaints. Status: The patient is a dependent. Transition of care: patient was not received from another setting of care. 19:17 Acuity: SAMMY Level 3 ld5 19:17 Method Of Arrival: Walkin/Carried/Asstd ld5 Triage Assessment: 19:20 General: Appears in no apparent distress. Pain: Denies pain. HIV screening NA for this ld5 visit Offered previously. Neurological: Level of Consciousness is awake, alert. Respiratory: Airway is patent Respiratory effort is even, unlabored. GI: Reports nausea, vomiting, intolerance of food, intolerance of fluids, since 2 days ago. 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 Pt reports LMP was in July. Pt reports 14 weeks 5 days ld5 Historical: - Allergies: Ceclor (Hives); Erythromycin (Hives); PENICILLINS (Anaphylaxis); SULFA (SULFONAMIDES) (Hives); - Home Meds: 1. Diclegis 10-10 mg oral TbEC 1 tab morning and afternoon (Last dose: 11/18/2016 15:00) 2. Diclegis 10-10 mg oral TbEC 2 tabs nightly (Last dose: 11/17/2016) 3. Phenergan 25 mg Oral tab 1 tab every 6 hours (Last dose: 11/18/2016 18:00) 4. Zoloft 25 mg Oral tab 1 tab once daily (Last dose: 11/17/2016) 5. Reglan Oral as needed - PMHx: Depression; Kidney stones; - PSHx: Tonsillectomy; PICC line placement; - Social history: Smoking status: Patient states former smoker of tobacco. No barriers to communication noted, The patient speaks fluent Armenian, Speaks appropriately for age. - Family history: Not pertinent. - : The pt / caregiver states he / she is not on anticoagulants. Home medication list is obtained from the patient. - Exposure Risk Screening:: None identified. Screenin:30 Screening information is obtained from the patient. Fall risk: No risks identified. mlc Assistance ADL's: requires no assistance with activities of daily living. Abuse/DV Screen: The patient / caregiver reports he/she is: not in a situation that causes fear, pain or injury. Nutritional screening: No deficits noted. home support is adequate. 22:48 Advance Directives: Currently, there is no health care proxy. mlc Assessment: 20:30 General: Appears in no apparent distress, comfortable, Behavior is cooperative, mlc pleasant. Pain: Denies pain. Neurological: Level of Consciousness is awake, alert, Oriented to person, place, time. Respiratory: Airway is patent Respiratory effort is even, unlabored, Respiratory pattern is regular. GI: Abdomen is non- distended Bowel sounds present X 4 quads. Abd is soft and non tender X 4 quads. Reports nausea, vomiting. Derm: Skin is normal. 20:47 General: In to obtain heart tones, patient stated that the doctor earlier could jmb not find them through doppler and had to perform ultrasound. This consumer loan underwriter asked patient how far along she was and identified at 15 weeks she would be around umbilical region, patient stated ok. Asked patient where doctor found heart tones and patient reports in pelvic region. Started doppler at pelvis and unable to obtain other than aortic sounds, moved doppler to left side of patient, started to heart heart tones, display showed ranges of 134-154. Last heart rate shown was 154 and documented. Informed patient of heart tones and normal ranges of 120-160 for norm. Patient stated ok. . 22:07 Reassessment: Patient appears in no apparent distress at this time. Patient states mlc symptoms have not improved. no changes since prior. resp easy/unlabored. IV fluids infusing per order. 22:48 General: Appears in no apparent distress, comfortable, Behavior is cooperative. Pain: mlc Denies pain. Neurological: Level of Consciousness is awake, alert, Oriented to person, place, time. Respiratory: Airway is patent Respiratory effort is even, unlabored, Respiratory pattern is regular. Derm: Skin is normal. Vital Signs: 18:53 BP 136 / 70; Pulse 96; Resp 16; Temp 97.2(O); Pulse Ox 98% ; Weight 75.3 kg; Height 5 cmb ft. 2 in. (157.48 cm); Pain 0/10; 22:48 BP 109 / 72; Pulse 79; Resp 18; Temp 98.9; Pulse Ox 99% ; Pain 0/10; mlc 18:53 Body Mass Index 30.36 (75.30 kg, 157.48 cm) cmb Vitals: 18:53 Log In Time: November 18, 2016 at 18:51. cmb 20:47 Heart Tones 154BPM. jmb ED Course: 18:52 Patient visited by Lety Llanes. cmb 18:52 Patient moved to Waiting cmb 18:53 Cleveland Chapman is Private Physician. cmb 18:54 Patient moved to Pre RCE cmb 19:19 Triage Initiated ld5 19:22 Patient visited by Geovanna Washington,KANU. ld5 19:58 Dolly Whyte,RN is Primary Nurse. cz 19:58 Patient moved to 11 cz 20:06 [facility]ent [facility]. ke 20:06 Patient visited by Genaro Sargent FNP. ke 20:06 Patient visited by Genaro Sargent FNP. ke 20:30 The patient / caregiver is instructed regarding the plan of care and ED course. mlc 20:30 Accessed PICC line in patient's left bicep. Clean & dry. Dressing intact. Flushes mlc easily. 20:31 Patient visited by Dolly Whyte,KANU. mlc 20:51 Patient visited by Dave Alonzo,KANU. jmb 21:24 Patient visited by Genaro Sargent FNP. ke 21:54 Patient visited by Genaro Sargent FNP. ke 21:56 Patient visited by Emanuel Ayala PCA. kb5 22:08 Patient visited by Dolly Whyte,KANU. mlc 22:38 Rohan Solorio MD is Referral Physician. ke 22:48 No procedures done that require assistance. mlc 22:48 Flushed PICC line. mlc 11/19 11:22 T-Sheet-- Draft Copy was scanned into [employer] and attached to record. gb Administered Medications: 11/18 20:29 Drug: Metoclopramide 10 mg [metoclopramide 5 mg/mL injection solution] Route: IV; Rate: mlc 40 mg/hr; Infused Over: 15 mins; Site: left upper arm; 22:46 Follow up: IV Status: Completed infusion mlc 20:30 Drug: NS 0.9% 1000 ml [sodium chloride 0.9 % intravenous solution] Route: IV; Rate: mlc bolus; Site: left upper arm; 22:46 Follow up: IV Status: Completed infusion mlc 22:47 Drug: heparin 100units/mL flush (PICC line) 2 ml [heparin flush (porcine) 100 unit/mL mlc in 0.9 % sodium chloride IV kit (2 mL)] Route: IVP; Site: left upper arm; Order Results: There are currently no results for this order. Outcome: 22:39 Discharge ordered by Provider. ke 22:48 Discharge Assessment: Patient awake, alert and oriented x 3. No cognitive and/or mlc functional deficits noted. Patient verbalized understanding of disposition instructions. patient administered narcotics - no. The following High Risk Discharge criteria are identified: None. Discharged to home with family. Condition: good Condition: stable. Discharge instructions given to patient, Instructed on discharge instructions, Demonstrated understanding of instructions, Pt was receptive of discharge instructions/ teaching. No special radiology studies were completed. Property sent home with patient. 22:50 Patient left the ED. mlc Signatures: Grady Rodriguez, RN RN cz Zena Boyd, Reg Reg gb Genaro Sargent, COVERSTITCH MACHINE OPERATOR COVERSTITCH MACHINE OPERATOR Emanuel Worley, FIELD SUPPORT ENGINEER FIELD SUPPORT ENGINEER kb5 Geovanna Washington RN RN ld5 Lety Llanes Joshua, RN RN jmb Dolly Whyte,KANU RN mlc Corrections: (The following items were deleted from the chart) 19:22 19:17 Presenting complaint: Patient states: "Dr. Solorio wanted me to go to [facility] D ld5 today to get some fluids but they didn't have any beds. I called again and they still don't have any beds. So I'm here for fluids." Pt reports nausea and vomiting throughout . States 15 weeks ld5 Chart Complete MTDD
--- NOTE | 2016-11-20 23:51 | EDDOCDS ---
Physician Documentation [facility] Name: Althea Ch Age: 36 yrs Sex: Female : 1980 Arrival Date: 11/18/2016 Time: 18:51 Bed 11 Private MD: Cleveland Chapman D Disposition: 11/18/16 22:39 Discharged to Home/Self Care. Impression: Mild hyperemesis gravidarum. - Condition is Stable. - Discharge Instructions: Hyperemesis Gravidarum. - Medication Reconciliation, Local Pharmacy Hours form. - Follow up: Rohan Solorio MD; When: 2 - 3 days; Reason: Recheck today's complaints, Continuance of care. - Problem is an ongoing problem. - Symptoms are unchanged. Historical: - Allergies: Ceclor (Hives); Erythromycin (Hives); PENICILLINS (Anaphylaxis); SULFA (SULFONAMIDES) (Hives); - Home Meds: 1. Diclegis 10-10 mg oral TbEC 1 tab morning and afternoon (Last dose: 11/18/2016 15:00) 2. Diclegis 10-10 mg oral TbEC 2 tabs nightly (Last dose: 11/17/2016) 3. Phenergan 25 mg Oral tab 1 tab every 6 hours (Last dose: 11/18/2016 18:00) 4. Zoloft 25 mg Oral tab 1 tab once daily (Last dose: 11/17/2016) 5. Reglan Oral as needed - PMHx: Depression; Kidney stones; - PSHx: Tonsillectomy; PICC line placement; - Social history: Smoking status: Patient states former smoker of tobacco. No barriers to communication noted, The patient speaks fluent Greenlandic, Speaks appropriately for age. - Family history: Not pertinent. - : The pt / caregiver states he / she is not on anticoagulants. Home medication list is obtained from the patient. - Exposure Risk Screening:: None identified. 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 Pt reports LMP was in July. Pt reports 14 weeks 5 days ld5 Vital Signs: 18:53 BP 136 / 70; Pulse 96; Resp 16; Temp 97.2(O); Pulse Ox 98% ; Weight 75.3 kg / 166.01 cmb lbs; Height 5 ft. 2 in. (157.48 cm); Pain 0/10; 22:48 BP 109 / 72; Pulse 79; Resp 18; Temp 98.9; Pulse Ox 99% ; Pain 0/10; mlc 18:53 Body Mass Index 30.36 (75.30 kg, 157.48 cm) cmb MDM: 20:13 Heart Tones ordered. ke 20:13 NS 0.9% 1000 ml IV at bolus once ordered. ke 20:13 Misc. Nursing Order ordered. ke 20:13 Metoclopramide 10 mg IV at 40 mg/hr once over 15 mins ordered. ke 22:47 heparin 100units/mL flush (PICC line) 2 ml IVP once; flush each port first with 10mL of mlc NS followed by heparin ordered. 11/19 10: T-Sheet-- Draft Copy was scanned into [employer] and attached to record. gb Administered Medications: 11/18 20:29 Drug: Metoclopramide 10 mg [metoclopramide 5 mg/mL injection solution] Route: IV; Rate: mlc 40 mg/hr; Infused Over: 15 mins; Site: left upper arm; 22:46 Follow up: IV Status: Completed infusion mlc 20:30 Drug: NS 0.9% 1000 ml [sodium chloride 0.9 % intravenous solution] Route: IV; Rate: mlc bolus; Site: left upper arm; 22:46 Follow up: IV Status: Completed infusion mlc 22:47 Drug: heparin 100units/mL flush (PICC line) 2 ml [heparin flush (porcine) 100 unit/mL mlc in 0.9 % sodium chloride IV kit (2 mL)] Route: IVP; Site: left upper arm; Signatures: Zena Boyd, Reg Reg Genaro Flynn, MOLD DESIGN ENGINEER MOLD DESIGN ENGINEER Geovanna WinterRN RN jose de [email or web address] Dolly Whyte RN RN mlc The chart was reviewed and I authenticate all verbal orders and agree with the evaluation and treatment provided.Attachments: 11/19 10: T-Sheet-- Draft Copy gb Chart Complete MTDD
== END 2016-11-18 22:50 | disposition home or self-care (01) ==
LOC: M ED 18:51
DX: O21.0 Mild hyperemesis gravidarum (principal); O99.342 Other mental disorders complicating pregnancy, second trimester; F32.9 Major depressive disorder, single episode, unspecified; Z87.891 Personal history of nicotine dependence; Z88.1 Allergy status to other antibiotic agents; Z88.0 Allergy status to penicillin; Z88.2 Allergy status to sulfonamides
CPT/HCPCS: 96365; 96366; 99284; J2765

== ENCOUNTER 2016-11-21 10:32 | Observation (INO) | payer OTHER ==
[~2016-11-21] VITALS: Ht 157.5 cm; Wt 74.5 kg
[2016-11-21] MEDS: DOCUSATE SODIUM 100 MG CAP PO SCH ×2 (09:00→21:00)
[~2016-11-21 10:32] MED LIST changes: +LR 1,000 ML IV SCH
[2016-11-21] MEDS ORDERED: ACETAMINOPHEN 500 MG TAB PO PRN (10:45)
[2016-11-21] MEDS ORDERED: ONDANSETRON 4 MG TAB (S0181) PO PRN (10:45)
[2016-11-21] MEDS ORDERED: METOCLOPRAMIDE INJ 10MG/2ML VIAL (J2765) IV PRN (10:45)
[2016-11-21 12:00] VITALS: BP 127/70
[2016-11-21 12:27] LABS: BASO % 0.3 % (0.0-1.0); EOS # 0.1 K/mm3 (0.0-0.50); EOS % 1.2 % (0.0-3.0); LARGE UNSTAINED CELL # 0.1 K/mm3 (0.0-0.4); LYMPH # 1.4 K/mm3 (1.5-4.5); LYMPH % 21.4 % (24.0-44.0); MEAN CORPUSCULAR HEMOGLOBIN 28.6 pg (27.0-33.0); MEAN CORPUSCULAR HGB CONC 34.8 g/dl (32.0-36.5); MEAN CORPUSCULAR VOLUME 82.3 fl (80.0-96.0); MONO # 0.3 K/mm3 (0.0-0.8); MONO % 4.3 % (0.0-5.0); NEUTROPHILS # 4.8 K/mm3 (1.8-7.7); NEUTROPHILS % 70.7 % (36.0-66.0); PLATELET COUNT, AUTOMATED 195 k/mm3 (150-450); RED CELL DISTRIBUTION WIDTH 14.9 % (11.5-14.5); WHITE BLOOD COUNT 6.7 K/mm3 (4.0-10.0)
[2016-11-21 12:48] LABS: ALBUMIN 3.3 GM/DL (3.2-5.2); ALBUMIN/GLOBULIN RATIO 0.94 (1.00-1.93); ALKALINE PHOSPHATASE 96 U/L (45-117); ALT/SGPT 18 U/L (12-78); ANION GAP 12 MEQ/L (8-16); AST/SGOT 9 U/L (15-37); BILIRUBIN,TOTAL 0.6 MG/DL (0.2-1.0); BLOOD UREA NITROGEN 6 MG/DL (7-18); CARBON DIOXIDE LEVEL 23 MEQ/L (21-32); CHLORIDE LEVEL 105 MEQ/L (98-107); CREATININE FOR GFR 0.55 MG/DL (0.55-1.02); GLOMERULAR FILTRATION RATE > 60.0 (>60); GLUCOSE, FASTING 85 MG/DL (70-105); POTASSIUM SERUM 3.6 MEQ/L (3.5-5.1); SODIUM LEVEL 140 MEQ/L (136-145); TOTAL PROTEIN 6.8 GM/DL (6.4-8.2)
[2016-11-21] MEDS: KCL 20MEQ IN D5/0.45NS 1000ML 1,000 ML IV SCH ×2 (15:14→21:46)
[2016-11-21] MEDS: PROMETHAZINE INJ 25 MG/ML VIAL (J2550) IV PRN (15:15)
[2016-11-21 16:00] VITALS: BP 121/64
[2016-11-21 20:00] VITALS: BP 96/55
--- NOTE | 2016-11-21 21:40 | HPE ---
DATE OF ADMISSION: 11/21/2016 HISTORY: A 36-year-old 4, para 3 female at 15-1/7 weeks gestation by a 9-week ultrasound, estimated date of confinement (EDC) of 05/14/2017, presents with continuous nausea on a daily basis, which prevents her from taking oral intake. She does not want to even try to eat or drink anything because it makes the nausea worse. She had a peripherally inserted central catheter (PICC) line in place for hydration purposes due to severe nausea. She has been on Phenergan daily at home. She vomits infrequently, but if she eats, she feels like she is going to vomit. COURSE: The patient initiated care at 9 weeks gestation on 10/15/2016. Her first trimester blood pressure was 119/74. significant for hyperemesis gravidarum for which she has a peripherally inserted central catheter (PICC) line in place and has been hospitalized on multiple occasions already. OBSTETRICAL HISTORY: 1. September 2001: At 41 weeks, vaginal delivery 8 pound 10 ounce female . 2. August 2003: At 38 weeks, vaginal delivery of a 7 pound 6 ounce male infant. 3. April 2013: At 37 weeks, vaginal delivery of a 6 pound 5 ounce female . MEDICAL HISTORY: 1. Depression. 2. History of kidney stones. 3. Abnormal Pap smears. SURGICAL HISTORY: Noncontributory. ALLERGIES: PENICILLIN, SULFA, CECLOR and ERYTHROMYCIN. SOCIAL HISTORY: The father of the baby is involved. The patient denies cigarettes, alcohol, or drug use during . FAMILY HISTORY: Noncontributory. PHYSICAL EXAMINATION: Blood pressure 124/74, pulse 80, in no apparent distress. Head and neck exam: Normocephalic. gravid. Extremities are nontender. ASSESSMENT: A 36-year-old 4, para 3 female at 58-1/7 weeks gestation, presents with hyperemesis gravidarum. PLAN: Admit for IV hydration, initially given Phenergan IV to help with nausea. Will try to introduce food and liquids into her diet as tolerated.
[2016-11-22] MEDS: PROMETHAZINE INJ 25 MG/ML VIAL (J2550) IV PRN ×2 (01:21→10:36)
[2016-11-22 04:00] VITALS: BP 117/60
[2016-11-22] MEDS: KCL 20MEQ IN D5/0.45NS 1000ML 1,000 ML IV SCH (06:29)
[2016-11-22 08:00] VITALS: BP 111/65
[2016-11-22] MEDS: DOCUSATE SODIUM 100 MG CAP PO SCH (09:00)
--- NOTE | 2016-11-22 10:29 | DSES ---
DATE OF ADMISSION: 11/21/2016 DATE OF DISCHARGE: A 36-year-old 4, para 3 at 15 weeks' gestation admitted by Dr. Solorio on 11/21/2016 for intravenous (IV) hydration due to hyperemesis. History is significant for hyperemesis in previous pregnancies. Peripherally inserted central catheter (PICC) line was placed early this gestation. Her vital signs are stable. Temp 97.5, BP 111/65. She is tolerating by mouth fluids with small amounts of solids. By mouth intake since midnight 360 mL with a total output of 1200 mL. Late last evening, by mouth intake was 560 mL with output of 600. Per consult, Dr. Meza will order IV hydration daily at home starting at 1 liter per day. She will continue her previously-ordered home medications of Phenergan , Reglan, and Zofran. Warnings were reviewed. Keep next office appointment. The patient will present for additional hydration if 1 liter daily is insufficient. MTDD
[2016-11-22] MEDS ORDERED: SODIUM CHLORIDE 0.9% INJ 10 ML SYR IV PRN (13:45)
[2016-11-22] MEDS ORDERED: ACET500C PO (13:56)
[2016-11-22] MEDS ORDERED: COLA100C PO (13:56)
[2016-11-22] MEDS ORDERED: SODIUM CHLORIDE 0.9% INJ 10 ML SYR IV SCH (18:00)
== END 2016-11-22 14:30 | disposition home or self-care (01) ==
LOC: M PED 11:41
PROVIDERS: ADMIT Specialist; ATTEND Specialist
DX: O21.0 Mild hyperemesis gravidarum (principal); Z88.0 Allergy status to penicillin; Z88.2 Allergy status to sulfonamides; Z3A.15 15 weeks gestation of pregnancy

== ENCOUNTER → 2016-12-15 | Outpatient (CLI) | payer OTHER ==
[~2016-12-15] MED LIST changes: +ACET500C PO; +COLA100C PO; -LR 1,000 ML IV SCH
--- NOTE | 2016-12-15 15:56 | REP ---
Obstetric sonography: History: Supervision of for anatomy. Findings: Scanning through the gravid uterus demonstrates a viable single intrauterine gestation in a variable lie. motion is observed and heart rate is recorded at 147 beats per minute. A posterior grade 0 placenta is seen without evidence of previa. Amniotic fluid is subjectively normal. Closed cervical length is 3.7 cm measured transabdominally. No extrauterine abnormalities observed. There has been appropriate interval growth. No anomaly is seen. Four-chamber heart and outflow tract views are less than optimally seen due to position. The following additional anatomic structures are identified and felt to be sonographically unremarkable: cranium, choroid plexus, cavum, cerebellum and posterior fossa, lungs, diaphragm, left-sided stomach, abdominal wall cord insertion, three-vessel umbilical cord, kidneys and bladder, spine, upper and lower extremities. Biometry chart: BPD 4.0 cm = 18 weeks 0 days HC 14.6 cm = 17 weeks 5 days AC 12.2 cm = 17 weeks 6 days FL 2.6 cm = 18 weeks 0 days HL 2.6 cm = 18 weeks 0 days CD 1.8 cm = 17 weeks 5 days HC/AC ratio normal 1.19. Cephalic index normal 0.76. Estimated weight 216 grams 0 pounds 7 ounces, 24th percentile for 18 weeks 4 days. Impression: Viable single intrauterine gestation at 18 weeks 0 days by today's composite sonographic criteria. Expected gestational age estimate based on prior sonography is 18 weeks 4 days. JAYLIN by prior sonography May 14, 2017. cardiac views less than optimally seen. Signed by Amadeo Dias MD 12/15/2016 04:35 P
== END ==
LOC: M SMT 09:55
PROVIDERS: ATTEND Specialist
DX: Z34.82 Encounter for supervision of other normal pregnancy, second trimester (principal)

== ENCOUNTER → 2017-01-06 | Outpatient (CLI) | payer OTHER ==
--- NOTE | 2017-01-06 16:23 | REP ---
Obstetric sonography: History: Supervision of . Followup anatomy. Four-chamber heart and outflow tract views. Comparison study December 15, 2016. Findings: Scanning through the gravid uterus demonstrates a single intrauterine gestation in a cephalic lie. motion is observed and heart rate is recorded at 150 beats per minute. Posterior grade 0 placenta is seen without evidence of previa. Amniotic fluid is subjectively normal. Closed cervical length is 4.9 cm, measured transabdominally. No extrauterine abnormalities observed. There has been appropriate interval growth. No anomaly is seen. face and profile are less than optimally seen today, however, these were visualized previously. Similarly, spine is less than optimally seen, but was previously evaluated. The following additional anatomic structures are identified today and felt to be sonographically unremarkable: cranium, choroid plexus, cavum, cerebellum and posterior fossa, lungs, four-chamber heart with left and right ventricular outflow tract views, diaphragm, left-sided stomach, abdominal wall cord insertion, three-vessel cord, kidneys and bladder, upper and lower extremities. Biometry chart: BPD 4.7 cm = 20 weeks 1 day HC 17.9 cm = 20 weeks 3 days AC 17.0 cm = 22 weeks 0 days FL 3.6 cm = 21 weeks 2 days HL 3.5 cm = 21 weeks 6 days CD 2.2 cm = 20 weeks 4 days HC/AC ratio 1.06. Cephalic index 0.71. Estimated weight 428 grams, 0 pounds 15 ounces, 39th percentile for 21 weeks 5 days. Impression: Viable single intrauterine gestation at 20 weeks 5 days by today's composite sonographic criteria. Expected gestational age estimate based on prior sonography is 21 weeks 5 days. JAYLIN by prior sonography May 14, 2017. anatomic survey is felt to be complete, in conjunction with the prior study. Signed by Amadeo Dias MD 01/06/2017 05:01 P
== END ==
LOC: M SMT 14:57
PROVIDERS: ATTEND Specialist
DX: Z36 Encounter for antenatal screening of mother (principal); Z3A.20 20 weeks gestation of pregnancy

== ENCOUNTER → 2017-02-03 | Outpatient (REF) | payer OTHER | LOC: M LAB REF 17:04 | PROVIDERS: ATTEND Obstetrics & Gynecology | DX: Z34.82 Encounter for supervision of other normal pregnancy, second trimester (principal) ==

== ENCOUNTER → 2017-02-10 | Outpatient (CLI) | payer OTHER ==
[~2017-02-10] MED LIST changes: -COLA100C PO; +COLA100C3 PO; +PROM50TA2 PO; +STOO100C PO; +ZOLO50TA PO
[2017-02-10 17:45] LABS: MEAN CORPUSCULAR HEMOGLOBIN 28.5 pg (27.0-33.0); MEAN CORPUSCULAR HGB CONC 33.6 g/dl (32.0-36.5); MEAN CORPUSCULAR VOLUME 84.7 fl (80.0-96.0); RED CELL DISTRIBUTION WIDTH 13.8 % (11.5-14.5); WHITE BLOOD COUNT 9.1 K/mm3 (4.0-10.0)
== END ==
LOC: M LAB 15:52
PROVIDERS: ATTEND Obstetrics & Gynecology
DX: Z34.82 Encounter for supervision of other normal pregnancy, second trimester (principal)

== ENCOUNTER 2017-02-14 15:15 | Emergency (ER) | payer OTHER ==
[~2017-02-14] VITALS: Ht 157.5 cm; Wt 73.9 kg
[~2017-02-14 15:15] MED LIST changes: -PROM50TA2 PO; -STOO100C PO; -ZOLO50TA PO
[2017-02-14] MEDS ORDERED: STOO100C PO (15:29)
[2017-02-14] MEDS ORDERED: ZOLO50TA PO (15:29)
[2017-02-14] MEDS ORDERED: PROM50TA2 PO (15:29)
--- NOTE | 2017-02-14 16:20 | REP ---
Left upper extremity duplex Doppler venous ultrasound. Real time compression and duplex Doppler evaluation of the left upper extremity deep venous system is performed. The left subclavian, jugular, axillary, brachial, basilic and cephalic veins are fully compressible where accessible with transducer pressure, and demonstrate no intraluminal thrombus and normal venous waveforms. There is no evidence of deep venous thrombosis. Impression: No evidence of deep venous thrombosis of the left upper extremity deep vein system. Signed by Ronen Wharton MD 02/14/2017 04:11 P
[2017-02-14 16:41] VITALS: BP 110/70
== END 2017-02-14 16:47 | disposition home or self-care (01) ==
LOC: M ED 16:45
DX: M79.602 Pain in left arm (principal); Z95.9 Presence of cardiac and vascular implant and graft, unspecified; Z87.442 Personal history of urinary calculi; Z88.0 Allergy status to penicillin; Z88.1 Allergy status to other antibiotic agents; Z88.2 Allergy status to sulfonamides

== ENCOUNTER 2017-02-23 10:24 | Emergency (ER) | payer OTHER ==
[~2017-02-23] VITALS: Ht 157.5 cm; Wt 74.8 kg
[2017-02-23 10:26] VITALS: BP 118/68
[2017-02-23 11:26] LABS: BASO % 0.2 % (0.0-1.0); EOS % 0.4 % (0.0-3.0); LARGE UNSTAINED CELL # 0.1 K/mm3 (0.0-0.4); LARGE UNSTAINED CELL % 1.6 % (0.0-4.0); LYMPH # 1.1 K/mm3 (1.5-4.5); LYMPH % 14.2 % (24.0-44.0); MEAN CORPUSCULAR HGB CONC 33.3 g/dl (32.0-36.5); MEAN CORPUSCULAR VOLUME 84.2 fl (80.0-96.0); MONO # 0.3 K/mm3 (0.0-0.8); MONO % 3.8 % (0.0-5.0); NEUTROPHILS # 5.7 K/mm3 (1.8-7.7); NEUTROPHILS % 79.8 % (36.0-66.0); PLATELET COUNT, AUTOMATED 169 k/mm3 (150-450); RED CELL DISTRIBUTION WIDTH 13.6 % (11.5-14.5); WHITE BLOOD COUNT 7.1 K/mm3 (4.0-10.0)
[2017-02-23 12:03] LABS: ANION GAP 9 MEQ/L (8-16); BLOOD UREA NITROGEN 5 MG/DL (7-18); CALCIUM LEVEL 7.5 MG/DL (8.5-10.1); CARBON DIOXIDE LEVEL 20 MEQ/L (21-32); CHLORIDE LEVEL 111 MEQ/L (98-107); CREATININE FOR GFR 0.48 MG/DL (0.55-1.02); GLOMERULAR FILTRATION RATE > 60.0 (>60); GLUCOSE, FASTING 98 MG/DL (70-105); POTASSIUM SERUM 3.5 MEQ/L (3.5-5.1); SODIUM LEVEL 140 MEQ/L (136-145)
--- NOTE | 2017-02-23 21:05 | ECGEPIP ---
Stationary ECG Study [facility] - ED Test Date: 2017-02-23 Pat Name: FRANKLIN MG Department: Room: - Gender: F Crew Supervisor: kecia : 1980 Requested By: Anjelica Arnold Order Number: [id number] Reading MD: Anjelica Arnold Measurements Intervals Page Rate: 86 P: 6 KS: 169 QRS: 28 QRSD: 84 T: 12 QT: 361 QTc: 433 Interpretive Statements SINUS RHYTHM NO PRIOR FOR COMPARISON Electronically Signed On 02-23-2017 21:05:09 EDT by Anjelica Arnold
== END 2017-02-23 11:18 | disposition admitted as inpatient to this hospital (09) ==
LOC: EDBD 10:24 → M ED 11:08
DX: O21.1 Hyperemesis gravidarum with metabolic disturbance (principal); E86.0 Dehydration; Z88.1 Allergy status to other antibiotic agents; Z88.0 Allergy status to penicillin; Z88.2 Allergy status to sulfonamides; Z79.899 Other long term (current) drug therapy; Z3A.28 28 weeks gestation of pregnancy; O99.280 Endocrine, nutritional and metabolic diseases complicating pregnancy, unspecified trimester

== ENCOUNTER 2017-02-23 12:15 | Outpatient (CLI) | payer OTHER ==
[~2017-02-23] VITALS: Ht 157.5 cm; Wt 75.0 kg
[~2017-02-23 12:15] MED LIST changes: +FERROUS SULFATE 325MG TAB PO SCH
[2017-02-23 12:32] VITALS: BP 111/61
[2017-02-23] MEDS ORDERED: LR 1,000 ML IV SCH (13:00)
[2017-02-23] MEDS ORDERED: SODIUM CHLORIDE 0.9% INJ 10 ML SYR IV SCH (18:00)
== END 2017-02-23 14:42 | disposition home or self-care (01) ==
LOC: M LDO 12:15
PROVIDERS: ATTEND Advanced Practice Midwife
DX: O21.1 Hyperemesis gravidarum with metabolic disturbance (principal); Z3A.28 28 weeks gestation of pregnancy

== ENCOUNTER → 2017-02-23 | Outpatient (CLI) | payer OTHER ==
[~2017-02-23] MED LIST changes: +PROM50TA2 PO; +STOO100C PO; +ZOLO50TA PO
[2017-02-23 07:54] LABS: INR 1.02
--- NOTE | 2017-02-23 17:14 | REP ---
Procedure: PICC line insertion with Ayo-Mariaelena The procedure was performed under the direct supervision of Dr. Dias. The risks and benefits of the procedure were explained to the patient and informed consent was obtained. The right cephalic vein was localized using ultrasound guidance. The skin was prepped and draped in a sterile fashion. 2% lidocaine was used as a local anesthetic. Using ultrasound guidance the cephalic vein was cannulated and a 0.018 guidewire was inserted and advanced to the SVC using fluoroscopic guidance. The needle was removed and a 4.5 Lao dilator and peel-away sheath was inserted over the guide wire. A 4.5 Lao single lumen catheter was cut to length of 38 cm. The dilator was removed and the catheter was inserted over the guide wire with the tip ending in the SVC. The peel-away sheath was removed and the catheter was flushed with heparinized saline as per Hospital protocol. The catheter was affixed to the skin and a sterile dressing was applied. The the patient tolerated the procedure well and there were no immediate complications. 0.2 minutes of fluoro time was utilized for this procedure. Reviewed by ELIZABET Parikh 02/23/2017 04:48 PSigned by Amadeo Dias MD 02/23/2017 05:06 P
== END ==
LOC: M RADPRO 11:11
PROVIDERS: ATTEND Obstetrics & Gynecology
DX: O21.1 Hyperemesis gravidarum with metabolic disturbance (principal); E86.0 Dehydration; Z88.1 Allergy status to other antibiotic agents; Z88.0 Allergy status to penicillin; Z88.2 Allergy status to sulfonamides; Z79.899 Other long term (current) drug therapy; Z3A.00 Weeks of gestation of pregnancy not specified; O99.280 Endocrine, nutritional and metabolic diseases complicating pregnancy, unspecified trimester

== ENCOUNTER 2017-03-10 09:15 | Outpatient (CLI) | payer OTHER ==
[~2017-03-10] VITALS: Ht 157.5 cm; Wt 77.6 kg
[~2017-03-10 09:15] MED LIST changes: -FERROUS SULFATE 325MG TAB PO SCH
[2017-03-10] MEDS ORDERED: SODIUM CHLORIDE 0.9% INJ 10 ML SYR IV PRN (09:45)
[2017-03-10] MEDS ORDERED: IRON SUCROSE 500 MG in NS 250 ML IV ONE (10:00)
[2017-03-10] MEDS ORDERED: DICL10TA PO (10:59)
[2017-03-10] MEDS ORDERED: ZOLO50TA PO (10:59)
[2017-03-10] MEDS ORDERED: PROM25TA PO (10:59)
[2017-03-10] MEDS ORDERED: SLOW142T PO (10:59)
[2017-03-10] MEDS ORDERED: SALI0.9I2 IV (10:59)
[2017-03-10] MEDS ORDERED: PROM1SUP2 PR (10:59)
[2017-03-10] MEDS ORDERED: SODIUM CHLORIDE 0.9% INJ 10 ML SYR IV SCH (18:00)
== END 2017-03-10 15:15 | disposition home or self-care (01) ==
LOC: M INFU 09:15
PROVIDERS: ATTEND Specialist
DX: D64.9 Anemia, unspecified (principal); Z88.0 Allergy status to penicillin; Z88.2 Allergy status to sulfonamides; Z88.1 Allergy status to other antibiotic agents; Z79.899 Other long term (current) drug therapy
CPT/HCPCS: 96365; 96366; J1756

== ENCOUNTER 2017-03-16 21:49 | Emergency (ER) | payer OTHER ==
[~2017-03-16] VITALS: Ht 157.5 cm; Wt 74.8 kg
[2017-03-16 21:49] VITALS: BP 117/60
[~2017-03-16 21:49] MED LIST changes: +PROM1SUP2 PR; +SLOW142T PO
[2017-03-17] MEDS ORDERED: dexameTHASONE 20 MG/5 ML VIAL (J1100) IV ONE (01:00)
[2017-03-17] MEDS ORDERED: NS 1,000 ML IV ONE (01:00)
[2017-03-17] MEDS ORDERED: METOCLOPRAMIDE INJ 10MG/2ML VIAL (J2765) IV ONE (01:00)
== END 2017-03-17 02:58 | disposition home or self-care (01) ==
LOC: M ED 23:08
DX: G43.009 Migraine without aura, not intractable, without status migrainosus (principal); F33.9 Major depressive disorder, recurrent, unspecified; Z95.9 Presence of cardiac and vascular implant and graft, unspecified; Z79.899 Other long term (current) drug therapy; Z88.0 Allergy status to penicillin; Z88.1 Allergy status to other antibiotic agents; Z88.2 Allergy status to sulfonamides
CPT/HCPCS: 96361; 96374; 96375; 99281; J1100; J2765

== ENCOUNTER → 2017-03-18 | Outpatient (REF) | payer OTHER | LOC: M LAB REF 13:02 | PROVIDERS: ATTEND Advanced Practice Midwife | DX: Z34.83 Encounter for supervision of other normal pregnancy, third trimester (principal) ==

== ENCOUNTER → 2017-03-29 | Outpatient (CLI) | payer OTHER ==
--- NOTE | 2017-03-29 15:14 | REP ---
Clinical: Size discrepancy . Comparison: 01/06/2017 . Findings: Examination demonstrates a single live intrauterine in cephalic presentation. motion is identified by technologist. Placenta is noted posteriorly and grade zero without evidence for placenta previa or abruption. Amniotic fluid volume is normal. Cervix measures 3.2 cm in length and appears closed. No evidence for nuchal cord. Gestational age by first US 33 weeks 3 days with JAYLIN 05/14/2017 . Gestational age by current measurements 33 weeks 0 days with JAYLIN 05/17/2017 . FHR equals 136 beats per minute. BPD 7.9 cm 31 weeks 4 days HC 28.9 cm 31 weeks 6 days AC 29.0 cm 33 weeks 0 days FL 6.6 cm 34 weeks 1 day HL 6.0 cm 34 weeks 3 days HC/AC ratio 1.00 Estimated weight 2111 grams ( 38th percentile). Amniotic fluid index equals 9.2 cm (8.2 - 24.6). Impression: Single live advanced gestation in cephalic presentation demonstrating appropriate interval growth. Estimated weight normal. Amniotic fluid index normal. Signed by Jalil Mcdonnell MD 03/29/2017 03:07 P
== END ==
LOC: M RAD 14:18
PROVIDERS: ATTEND Obstetrics & Gynecology
DX: O26.843 Uterine size-date discrepancy, third trimester (principal); Z3A.33 33 weeks gestation of pregnancy

== ENCOUNTER → 2017-04-12 | Outpatient (REF) | payer OTHER, SELFPAY | LOC: M LAB REF 17:24 | PROVIDERS: ATTEND Obstetrics & Gynecology | DX: O09.293 Supervision of pregnancy with other poor reproductive or obstetric history, third trimester (principal); Z3A.00 Weeks of gestation of pregnancy not specified ==

== ENCOUNTER → 2017-04-19 | Outpatient (CLI) | payer MEDICAID ==
--- NOTE | 2017-04-19 12:18 | REP ---
Obstetric ultrasound for growth: There is a single intrauterine gestation in a vertex presentation. heart rate is 136 beats per minute. The placenta is posterior. There is no placenta previa. Amniotic fluid volume subjectively is normal. The amniotic fluid index is 10.1 (7.6 - 24.7). By today's ultrasound the gestational age is 35 weeks 2 days with an JAYLIN of 05/22/2017. Gestational age recording the first ultrasound during this gestation is 36 weeks 3 days. weight is 2750 grams (6 pounds, 0 ounces). This is the 40th percentile for 36 weeks 3 days. Umbilical artery Doppler assessment: SD ratio 2.49. Resistive index 0.60. These values are normal. Diastolic flow velocity is 8.4 cm/sec. This is below the lower limit of normal 10.0 cm/sec. Signed by Ronen Chapa MD 04/19/2017 12:09 P
== END ==
LOC: M SMT 09:50
PROVIDERS: ATTEND Obstetrics & Gynecology
DX: O09.293 Supervision of pregnancy with other poor reproductive or obstetric history, third trimester (principal)

== ENCOUNTER → 2017-04-21 | Outpatient (CLI) | payer MEDICAID ==
[~2017-04-21] VITALS: Ht 157.5 cm; Wt 71.0 kg
[~2017-04-21] MED LIST changes: +KCL 20MEQ IN D5/NS 1000ML 1,000 ML IV SCH; +LR 1,000 ML IV ONE
[2017-04-21 10:12] VITALS: BP 113/73
[2017-04-21 11:30] LABS: MEAN CORPUSCULAR HEMOGLOBIN 28.7 pg (27.0-33.0); MEAN CORPUSCULAR HGB CONC 33.6 g/dl (32.0-36.5); MEAN CORPUSCULAR VOLUME 85.5 fl (80.0-96.0); RED CELL DISTRIBUTION WIDTH 16.5 % (11.5-14.5); WHITE BLOOD COUNT 6.9 K/mm3 (4.0-10.0)
[2017-04-21 11:40] LABS: ALBUMIN 2.6 GM/DL (3.2-5.2); ALBUMIN/GLOBULIN RATIO 0.84 (1.00-1.93); ALKALINE PHOSPHATASE 126 U/L (45-117); ALT/SGPT 12 U/L (12-78); AMYLASE 45 U/L (25-115); ANION GAP 12 MEQ/L (8-16); AST/SGOT 11 U/L (15-37); BILIRUBIN,TOTAL 0.9 MG/DL (0.2-1.0); BLOOD UREA NITROGEN 7 MG/DL (7-18); CALCIUM LEVEL 8.2 MG/DL (8.5-10.1); CARBON DIOXIDE LEVEL 22 MEQ/L (21-32); CHLORIDE LEVEL 103 MEQ/L (98-107); CREATININE FOR GFR 0.51 MG/DL (0.55-1.02); GLOMERULAR FILTRATION RATE > 60.0 (>60); GLUCOSE, FASTING 67 MG/DL (70-105); MAGNESIUM LEVEL 1.6 MG/DL (1.8-2.4); POTASSIUM SERUM 3.4 MEQ/L (3.5-5.1); SODIUM LEVEL 137 MEQ/L (136-145); TOTAL PROTEIN 5.7 GM/DL (6.4-8.2)
[2017-04-21] MEDS: PROMETHAZINE INJ 25 MG/ML VIAL (J2550) IV PRN ×2 (12:41→18:31)
[2017-04-21] MEDS: LR 1,000 ML IV SCH (14:20)
[2017-04-21] MEDS: ONDANSETRON 4MG/2ML VIAL (J2405) IV PRN ×2 (14:40→18:31)
[2017-04-21 14:49] VITALS: BP 89/54
[2017-04-21 16:11] VITALS: BP 88/45
[2017-04-21 17:49] VITALS: BP 95/54
[2017-04-22 09:47] VITALS: BP 91/54
[2017-04-22] MEDS: LR 1,000 ML IV SCH (10:31)
== END ==
LOC: M LDO 09:59
PROVIDERS: ATTEND Obstetrics & Gynecology
DX: O26.893 Other specified pregnancy related conditions, third trimester (principal); Z3A.36 36 weeks gestation of pregnancy; O21.9 Vomiting of pregnancy, unspecified; R10.9 Unspecified abdominal pain; E86.0 Dehydration; O99.283 Endocrine, nutritional and metabolic diseases complicating pregnancy, third trimester
CPT/HCPCS: 36415; 59025; 76815; 80053; 81001; 82150; 83690; 83735; 85027; 96374; 96375; J2405

== ENCOUNTER 2017-05-07 06:04 | Inpatient (IN) | payer MEDICAID ==
[~2017-05-07] VITALS: Ht 157.5 cm; Wt 74.0 kg
[2017-05-07] VITALS (35 sets, daily range): BP systolic 95–126; BP diastolic 50–80
[~2017-05-07 06:04] MED LIST changes: -COLA100C3 PO; +COLA100C5 PO; -KCL 20MEQ IN D5/NS 1000ML 1,000 ML IV SCH; -LR 1,000 ML IV ONE; -PROM50TA2 PO; +PROM50TA4 PO
[2017-05-07] MEDS ORDERED: RANI15TA PO (06:16)
[2017-05-07] MEDS ORDERED: LACTATED RINGER'S 1000 ML IV STA (06:30)
[2017-05-07] MEDS ORDERED: OXYTOCIN DRIP 30 UNITS in APPROPRIATE DILUENT 1 EA IV SCH (06:30)
[2017-05-07] MEDS ORDERED: BUTORPHANOL 2 MG/ML INJ (J0595) IV PRN (06:30)
[2017-05-07] MEDS ORDERED: PROMETHAZINE INJ 25 MG/ML VIAL (J2550) IV PRN (06:30)
[2017-05-07] MEDS: LR 1,000 ML IV SCH ×2 (06:48→10:47)
[2017-05-07 07:19] LABS: MEAN CORPUSCULAR HEMOGLOBIN 27.8 pg (27.0-33.0); MEAN CORPUSCULAR HGB CONC 33.4 g/dl (32.0-36.5); MEAN CORPUSCULAR VOLUME 83.2 fl (80.0-96.0); RED CELL DISTRIBUTION WIDTH 16.6 % (11.5-14.5); WHITE BLOOD COUNT 7.2 K/mm3 (4.0-10.0)
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
[2017-05-07] MEDS ORDERED: FENTANYL 2MCG/ML ROPIVACAINE 0.2% IN 0.9% NACL 200ML IVBAG As Ordered ONE (10:41)
[2017-05-07] MEDS ORDERED: EPIDURAL COMMENT XX SCH (12:30)
[2017-05-07] MEDS ORDERED: BICITRA 30ML SOLN UDC PO ONE (12:30)
[2017-05-07] MEDS ORDERED: LACTATED RINGER'S 1000 ML IV PRN (12:30)
[2017-05-07] MEDS ORDERED: ONDANSETRON 4MG/2ML VIAL (J2405) IV PRN ×2 (12:30→15:45)
[2017-05-07] MEDS ORDERED: REFRIGERATOR IV KEYS XX PRN (12:30)
[2017-05-07] MEDS ORDERED: EPIDURAL/PCA KEYS XX PRN (12:30)
[2017-05-07] MEDS ORDERED: diphenhydrAMINE INJ 50MG/ML VIAL (J1200) IV PRN (12:30)
[2017-05-07] MEDS ORDERED: ePHEDrine SULFATE 25 MG/5 ML(5MG/ML) SYRINGE IV PRN (12:30)
[2017-05-07] MEDS ORDERED: FENTANYL/ROPIVACAINE/NACL BAG 200 ML EPIDURAL SCH (12:30)
[2017-05-07] MEDS ORDERED: NALOXONE INJ 0.4 MG/1 ML VIAL (J2310) IV PRN (12:30)
[2017-05-07] MEDS ORDERED: DIBUCAINE 1% OINTMENT 30GM TOP PRN (15:45)
[2017-05-07] MEDS ORDERED: DOCUSATE SODIUM 100 MG CAP PO PRN (15:45)
[2017-05-07] MEDS ORDERED: METHYLERGONOVINE MALEATE 0.2 MG TAB PO PRN (15:45)
[2017-05-07] MEDS ORDERED: ACETAMINOPHEN 500 MG TAB PO PRN (15:45)
[2017-05-07] MEDS ORDERED: RHOGAM 300 MCG (1500 IU) INJ (J2790) IM SCH (15:45)
[2017-05-07] MEDS ORDERED: MEASLES,MUMPS,RUBELLA VACCINE INJ (MMR-II) (90707) SC SCH (15:45)
[2017-05-07] MEDS ORDERED: OXYTOCIN DRIP 30 UNITS in APPROPRIATE DILUENT 1 EA IV ONE (16:00)
--- NOTE | 2017-05-07 16:59 | DN ---
DATE: 05/07/2017 PREDELIVERY DIAGNOSIS: 39-week , planned induction. POSTOPERATIVE DIAGNOSIS: Delivered. PROCEDURE: Spontaneous vaginal delivery. VETERINARY MEDICINE TEACHER: Dr. Rohan Solorio. ANESTHESIA: Epidural. ESTIMATED BLOOD LOSS: 300 mL. FINDINGS: 6 pound 11 ounce female infant, scores 9 and 9. DELIVERY SUMMARY: After an 18-minute second stage, the patient had spontaneous delivery of a 6 pound 11 ounce female, Apgars 8, 9 under epidural anesthesia. There is no nuchal cord. The shoulders delivered with ease. The infant cried spontaneously and was handed to the mother. The cord was doubly clamped and cut. The placenta delivered spontaneously and appeared to be intact. The patient received intravenous (IV) Pitocin immediately after delivery of the placenta. No vaginal lacerations were present. MTDD
[2017-05-07] MEDS: IBUPROFEN 800 MG TAB PO PRN (17:51)
[2017-05-08] MEDS: IBUPROFEN 800 MG TAB PO PRN ×3 (05:48→23:53)
[2017-05-08 06:17] VITALS: BP 124/69
[2017-05-08] MEDS ORDERED: PRENATAL VITAMINS CHEWABLE TABLET PO SCH (09:00)
[2017-05-08 18:05] VITALS: BP 131/64
[2017-05-09 05:47] VITALS: BP 132/76
[2017-05-09] MEDS ORDERED: PRENTAB9 PO (08:16)
[2017-05-09] MEDS ORDERED: ACET50TA PO (08:18)
[2017-05-09] MEDS ORDERED: IBUP-1114 PO (08:19)
[2017-05-09] MEDS: IBUPROFEN 800 MG TAB PO PRN (10:02)
[2017-06-09] MEDS ORDERED: ZOLO50TA PO (11:14)
== END 2017-05-09 09:55 | disposition home or self-care (01) | DRG 560 ==
LOC: M LDI 06:04 → M OBS 17:44
PROVIDERS: ADMIT Specialist; ATTEND Specialist
PROC: 10E0XZZ Delivery of Products of Conception, External Approach (ICD-10-PCS; principal; 2017-05-07)
PROC: 3E033VJ Introduction of Other Hormone into Peripheral Vein, Percutaneous Approach (ICD-10-PCS; 2017-05-07)
DX: O21.9 Vomiting of pregnancy, unspecified (principal); D64.9 Anemia, unspecified; Z37.0 Single live birth; Z3A.39 39 weeks gestation of pregnancy; Z88.0 Allergy status to penicillin; Z88.2 Allergy status to sulfonamides; Z88.1 Allergy status to other antibiotic agents; Z81.8 Family history of other mental and behavioral disorders; Z82.79 Family history of other congenital malformations, deformations and chromosomal abnormalities; O99.02 Anemia complicating childbirth; Z79.899 Other long term (current) drug therapy

== ENCOUNTER 2017-06-13 07:59 | Day surgery (SDC) | payer OTHER ==
[~2017-06-13] VITALS: Ht 157.5 cm; Wt 68.0 kg
[~2017-06-13 07:59] MED LIST changes: +IBUP-1114 PO; +PRENTAB9 PO; +RANI15TA PO
[2017-06-13 08:36] LABS: CONTROL LINE UCG INT CTR LINE PRESENT
[2017-06-13] MEDS ORDERED: fentaNYL 100 MCG/2 ML INJECTION (J3010) As Ordered ONE ×2 (09:46→11:04)
[2017-06-13] MEDS ORDERED: MIDAZOLAM INJ 2 MG/2 ML VIAL (J2250) As Ordered ONE (09:46)
[2017-06-13] MEDS ORDERED: ONDANSETRON 4MG/2ML VIAL (J2405) As Ordered ONE (09:47)
[2017-06-13] MEDS ORDERED: PROPOFOL 200 MG/20 ML VIAL As Ordered ONE (09:47)
[2017-06-13] MEDS ORDERED: dexameTHASONE 4 MG/ML 1ML VIAL (J1100) As Ordered ONE (09:47)
[2017-06-13] MEDS ORDERED: ROCURONIUM BROMIDE 50 MG/5 ML VIAL/SYRINGE As Ordered ONE (09:47)
[2017-06-13] MEDS ORDERED: LIDOCAINE 2% INJ 100 MG/5 ML SDV (FOR ANES.) As Ordered ONE (09:47)
[2017-06-13] MEDS ORDERED: BUPIVACAINE HCL 0.25% 30 ML VIAL As Ordered ONE (09:52)
[2017-06-13] MEDS ORDERED: OXYC1TAB23 PO (10:00)
[2017-06-13] MEDS ORDERED: HYDROmorphone HCL 2 MG/ML 1ML VIAL (J1170) As Ordered ONE (10:22)
[2017-06-13] MEDS ORDERED: KETOROLAC 60 MG/2 ML VIAL (J1885) As Ordered ONE (10:24)
[2017-06-13] MEDS ORDERED: PERCOCET 5MG/325MG TAB As Ordered ONE (11:04)
[2017-06-13] MEDS: PERCOCET 5MG/325MG TAB PO PRN ×3 (11:05→11:28)
[2017-06-13] MEDS: fentaNYL 100 MCG/2 ML INJECTION (J3010) IV PRN ×4 (11:05→11:39)
[2017-06-13] MEDS ORDERED: HYDROmorphone HCL 1 MG/ML SYRINGE (J1170) IV PRN (11:15)
[2017-06-13] MEDS ORDERED: LR 1,000 ML IV SCH ×2 (11:15)
[2017-06-13] MEDS ORDERED: ONDANSETRON 4MG/2ML VIAL (J2405) IV PRN (11:15)
[2017-06-13] MEDS ORDERED: PERCOCET 5MG/325MG TAB PO PRN ×2 (11:15)
[2017-06-13] MEDS ORDERED: METOCLOPRAMIDE INJ 10MG/2ML VIAL (J2765) As Ordered ONE (12:04)
[2017-06-13] MEDS ORDERED: METOCLOPRAMIDE INJ 10MG/2ML VIAL (J2765) IV ONE (12:15)
[2017-06-13 12:30] VITALS: BP 131/81
--- NOTE | 2017-06-13 23:30 | RO ---
DATE OF PROCEDURE: 06/13/2017 PREPROCEDURE DIAGNOSIS: Undesired fertility. POSTPROCEDURE DIAGNOSIS: Undesired fertility. PROCEDURE: Laparoscopic tubal ligation with Falope ring. SURGEON: Rohan Solorio MD FISHING VESSEL DECKHAND: ANESTHESIA: General endotracheal. ESTIMATED BLOOD LOSS: Minimal. URINE OUTPUT: 300 mL. FINDINGS: Normal upper abdomen, including liver and stomach. Normal pelvis, including uterus, fallopian tubes and ovaries. DESCRIPTION OF PROCEDURE: The patient was taken to the operating room where general endotracheal anesthesia was induced. She was prepped and draped in a sterile fashion in the dorsal lithotomy position. The bladder was emptied with a catheter. Sponge stick was placed as a uterine manipulator. A periumbilical incision was made with a scalpel. A Veress needle was placed through this incision while tenting up on the skin of the abdomen. Veress needle was removed when opening pressures were too high. Incision made, used direct entry using Visiport. Direct entry was performed using the 5 mm scope. An 8 mm suprapubic port was placed under direct visualization without difficulty. A blunt probe was used to survey pelvic structures. A Falope ring was applied at the mid portion of each fallopian tube without difficulty and excellent application was noted on both sides. Pneumoperitoneum was released, all instruments were removed. Sponge, instrument and needle counts were correct. Skin was closed with #4-0 Monocryl subcuticular sutures.
== END 2017-06-13 12:46 | disposition home or self-care (01) ==
LOC: M SDC 07:59
PROVIDERS: ATTEND Specialist
DX: Z30.2 Encounter for sterilization (principal); G43.909 Migraine, unspecified, not intractable, without status migrainosus; F32.9 Major depressive disorder, single episode, unspecified; N20.0 Calculus of kidney; D64.9 Anemia, unspecified; Z87.891 Personal history of nicotine dependence; Z88.0 Allergy status to penicillin; Z88.1 Allergy status to other antibiotic agents; Z88.2 Allergy status to sulfonamides; Z79.899 Other long term (current) drug therapy

== ENCOUNTER → 2017-09-26 | Outpatient (CLI) | payer OTHER ==
[~2017-09-26] MED LIST changes: +OXYC1TAB23 PO
== END ==
LOC: M LAB 11:05
PROVIDERS: ATTEND Family Medicine
DX: E55.9 Vitamin D deficiency, unspecified (principal)

== ENCOUNTER 2017-10-10 07:47 | Emergency (ER) | payer OTHER ==
[~2017-10-10] VITALS: Ht 157.5 cm; Wt 76.3 kg
--- NOTE | 2017-10-10 08:43 | REP ---
RIGHT ANKLE COMPLETE: 10/10/2017 CLINICAL HISTORY: Trauma. Four views are provided. The mortise joint was symmetric and preserved. There is no talar dome osteochondral defect. On the oblique image #2, there is question of small avulsions off the dorsal aspect of the talus, which are not visible on the lateral view. Small heel spurs are noted. Subtalar joints are intact. The distal tibia and fibula themselves are without definite fracture. IMPRESSION: 1. Tiny avulsion suspected off the dorsal lateral aspect of the talus on one of the oblique views. There are small heel spurs. Some soft tissue swelling noted. No other finding on the ankle series of acute bony nature. Signed by Frederick Tenorio MD 10/11/2017 05:48 P
--- NOTE | 2017-10-10 08:44 | REP ---
RIGHT FOOT SERIES COMPLETE: 10/10/2017 COMPARISON: Right ankle series today. CLINICAL HISTORY: Trauma, injury. Four views provided. There is calcific/ossific avulsion off the lateral aspect of the calcaneus near the calcaneocuboid joint. This is seen on the PA and oblique view with associated focal soft tissue swelling. I do not see other significant or acute finding of a bony nature. There are small heel spurs unchanged. Subtalar joints intact. IMPRESSION: 1. There is an avulsion off the distal lateral aspect of the calcaneus at the calcaneocuboid joint seen on PA and oblique view. This is separate from the tiny avulsion suggested off the lateral aspect of the talus seen only in the ankle view. Local soft tissue swelling noted. Signed by Frederick Tenorio MD 10/11/2017 05:48 P
[2017-10-10] MEDS ORDERED: IBUP-1022 PO (09:02)
[2017-10-10] MEDS ORDERED: NORC1TAB4 PO (09:02)
[2017-10-10 09:13] VITALS: BP 115/69
== END 2017-10-10 09:15 | disposition home or self-care (01) ==
LOC: M ED 07:47 → EDBD 07:47 → M ED 09:15
DX: S92.154A Nondisplaced avulsion fracture (chip fracture) of right talus, initial encounter for closed fracture (principal); S93.491A Sprain of other ligament of right ankle, initial encounter; W10.8XXA Fall (on) (from) other stairs and steps, initial encounter; Y92.098 Other place in other non-institutional residence as the place of occurrence of the external cause; Y93.01 Activity, walking, marching and hiking; Y99.8 Other external cause status; K21.9 Gastro-esophageal reflux disease without esophagitis; Z79.899 Other long term (current) drug therapy; Z88.1 Allergy status to other antibiotic agents; Z88.0 Allergy status to penicillin; Z88.2 Allergy status to sulfonamides

== ENCOUNTER → 2017-12-20 | Outpatient (REF) | payer OTHER ==
[2017-12-22 14:17] LABS: HPV HYBRID CAPTURE II Negative (Negative)
== END ==
LOC: M LAB REF 17:42
DX: Z12.4 Encounter for screening for malignant neoplasm of cervix (principal)

== ENCOUNTER → 2018-04-21 | Outpatient (CLI) | payer OTHER | LOC: M SLEEP HO 15:02 | DX: G47.9 Sleep disorder, unspecified (principal) | CPT/HCPCS: G0399 ==

== ENCOUNTER → 2018-06-07 | Outpatient (REF) | payer OTHER ==
[2018-06-07 13:14] LABS: HEMATOCRIT 39.4 % (36.0-47.0); HEMOGLOBIN 12.4 g/dl (12.0-15.5); MEAN CORPUSCULAR HEMOGLOBIN 26.4 pg (27.0-33.0); MEAN CORPUSCULAR HGB CONC 31.5 g/dl (32.0-36.5); MEAN CORPUSCULAR VOLUME 83.8 fl (80.0-96.0); PLATELET COUNT, AUTOMATED 224 10^3/uL (150-450); RED CELL DISTRIBUTION WIDTH 14.4 % (11.5-14.5); WHITE BLOOD COUNT 6.9 10^3/uL (4.0-10.0)
[2018-06-07 13:46] LABS: FERRITIN 14 NG/ML (8-252); FREE T4 0.91 NG/DL (0.76-1.46); IRON (FE) 40 UG/DL (50-170); PERCENT SATURATION 12.3 % (13.2-45.0); TOTAL IRON BINDING CAPACITY 324 UG/DL (250-450)
== END ==
LOC: M SFHCPLAZ 09:26
DX: L65.9 Nonscarring hair loss, unspecified (principal); Z86.2 Personal history of diseases of the blood and blood-forming organs and certain disorders involving the immune mechanism
CPT/HCPCS: 83550

== ENCOUNTER → 2018-08-20 | Outpatient (CLI) | payer OTHER | LOC: M LAB 15:30 | DX: E55.9 Vitamin D deficiency, unspecified (principal); Z79.899 Other long term (current) drug therapy | CPT/HCPCS: 82306 ==

== ENCOUNTER → 2019-07-31 | Outpatient (REF) | payer OTHER ==
[~2019-07-31] MED LIST changes: -/MOM400 PO; -/ONDA4TA PO; +ACET120S24 PR; -ACET12SU PR; -ACET50TA PO; -DOCU10ELUD PO; +DOCU5LIQ PO; +IBUP-1022 PO; +MAPA500T17 PO; +MAPA500T2 PO; +MILK10SU PO; +MM S100C PO; +NORC1TAB7 PO; +ONDA-1 PO; +ONDA-228 PO; -PERCOCET PO; +PROM-190 PO; -PROM25TA GT; -PROM25TA PO; +PROM25TA12 GT; +PROM25TA12 PO; -STOO100C PO; -ZOFR4TAB3 PO
[2019-08-03 14:22] LABS: HPV HYBRID CAPTURE II Positive (Negative)
== END ==
LOC: M LAB REF 13:49
PROVIDERS: ATTEND Specialist
DX: R87.615 Unsatisfactory cytologic smear of cervix (principal)

== ENCOUNTER → 2019-12-27 | Outpatient (REF) | payer OTHER ==
[2019-12-27 16:57] LABS: BASO % 0.3 % (0.0-1.0); EOS # 0.1 10^3/uL (0.0-0.5); EOS % 1.7 % (0.0-3.0); HEMATOCRIT 37.9 % (36.0-47.0); MEAN CORPUSCULAR HEMOGLOBIN 26.4 pg (27.0-33.0); MEAN CORPUSCULAR HGB CONC 31.7 g/dl (32.0-36.5); MEAN CORPUSCULAR VOLUME 83.3 fl (80.0-96.0); MONO # 0.5 10^3/uL (0.0-0.8); MONO % 6.8 % (0.0-5.0); NEUTROPHILS # 4.6 10^3/uL (1.5-8.5); NEUTROPHILS % 62.8 % (36.0-66.0); PLATELET COUNT, AUTOMATED 249 10^3/uL (150-450); RED BLOOD COUNT 4.55 10^6/uL (4.00-5.40); WHITE BLOOD COUNT 7.2 10^3/uL (4.0-10.0)
[2019-12-27 17:34] LABS: CHOLESTEROL RISK RATIO 5.181 (<5); THYROID STIMULATING HORMONE 2.3 uIU/ML (0.358-3.740)
== END ==
LOC: M SFHCPLAZ 15:49
DX: Z00.00 Encounter for general adult medical examination without abnormal findings (principal); R63.5 Abnormal weight gain

== ENCOUNTER → 2020-02-13 | Outpatient (REF) | payer OTHER | LOC: M SFHCPLAZ 16:56 | PROVIDERS: ATTEND Student in an Organized Health Care Education/Training Program | DX: B02.9 Zoster without complications (principal) ==

== ENCOUNTER → 2020-04-16 | Outpatient (REF) | payer OTHER ==
[2020-04-16 14:16] LABS: URINE PREG TEST NEGATIVE (NEGATIVE)
[2020-04-16 14:17] LABS: HEMATOCRIT 37.7 % (36.0-47.0); HEMOGLOBIN 11.9 g/dl (12.0-15.5); MEAN CORPUSCULAR HEMOGLOBIN 26.3 pg (27.0-33.0); MEAN CORPUSCULAR HGB CONC 31.6 g/dl (32.0-36.5); MEAN CORPUSCULAR VOLUME 83.2 fl (80.0-96.0); PLATELET COUNT, AUTOMATED 230 10^3/uL (150-450); RED BLOOD COUNT 4.53 10^6/uL (4.00-5.40)
[2020-04-16 14:34] LABS: HEMOGLOBIN A1c 5.3 %
[2020-04-16 14:37] LABS: ALBUMIN 3.9 GM/DL (3.2-5.2); ALT/SGPT 25 U/L (12-78); BILIRUBIN,TOTAL 0.4 MG/DL (0.2-1.0); BLOOD UREA NITROGEN 14 MG/DL (7-18); CALCIUM LEVEL 9.1 MG/DL (8.5-10.1); CARBON DIOXIDE LEVEL 26 MEQ/L (21-32); CHLORIDE LEVEL 108 MEQ/L (98-107); CREATININE FOR GFR 0.75 MG/DL (0.55-1.30); FOLLICLE STIMULATING HORMONE 6.4 mIU/mL; FREE T4 1.09 NG/DL (0.76-1.46); GLOMERULAR FILTRATION RATE > 60.0 (>60); GLUCOSE, FASTING 96 MG/DL (70-100); LUTEINIZING HORMONE 10.6 mIU/mL; POTASSIUM SERUM 4.1 MEQ/L (3.5-5.1); SODIUM LEVEL 139 MEQ/L (136-145)
[2020-04-16 15:12] LABS: HIV 1&2 SCREEN CENTAUR NEGATIVE (NEGATIVE)
[2020-04-17 19:07] LABS: ANA (HEP2) Positive (.)
== END ==
LOC: M SFHCPLAZ 11:24
PROVIDERS: ATTEND Family Medicine
DX: R53.83 Other fatigue (principal); R73.01 Impaired fasting glucose; N91.2 Amenorrhea, unspecified; B02.9 Zoster without complications

== ENCOUNTER → 2020-09-07 | Outpatient (CLI) | payer OTHER ==
[~2020-09-07] MED LIST changes: -PROM25SU2 PR; +PROM25SU3 PR
--- NOTE | 2020-09-07 09:48 | REP ---
INDICATION: FOOT PAIN. Injury to heel and lateral foot. COMPARISON: None. TECHNIQUE: Four views. FINDINGS: Four views of the left foot demonstrate mild Achilles and plantar calcaneal spurring.. No fracture or subluxation is seen. No opaque foreign body noted. Bones, joints, and soft tissues are otherwise unremarkable. IMPRESSION: Negative left foot series. <Electronically signed by Feng Dias > 09/07/20 0904
== END ==
LOC: M WUC 09:22
PROVIDERS: ATTEND Physician Assistant
DX: M25.572 Pain in left ankle and joints of left foot (principal)

== ENCOUNTER → 2020-09-15 | Outpatient (REF) | payer OTHER | LOC: M SFHCPLAZ 11:13 | PROVIDERS: ATTEND Family Medicine | DX: E88.81 Metabolic syndrome and other insulin resistance (principal); E78.5 Hyperlipidemia, unspecified ==

== ENCOUNTER → 2020-09-17 | Outpatient (CLI) | payer OTHER ==
[2020-09-17 11:01] LABS: HEMOGLOBIN A1c 5.5 %
[2020-09-17 11:04] LABS: CHOLESTEROL RISK RATIO 4.075 (<5)
== END ==
LOC: M WUC 08:38
PROVIDERS: ATTEND Student in an Organized Health Care Education/Training Program
DX: E88.81 Metabolic syndrome and other insulin resistance (principal); E78.5 Hyperlipidemia, unspecified

== ENCOUNTER → 2020-09-27 | Outpatient (CLI) | payer SELFPAY | LOC: M LABSMTC 09:48 | PROVIDERS: ATTEND Pediatrics | DX: Z20.828 Contact with and (suspected) exposure to other viral communicable diseases (principal) ==

== ENCOUNTER → 2021-01-12 | Outpatient (CLI) | payer OTHER ==
[2021-01-12 12:31] LABS: BASO % 0.7 % (0.0-1.0); EOS # 0.1 10^3/uL (0.0-0.5); EOS % 1.2 % (0.0-3.0); HEMATOCRIT 35.8 % (36.0-47.0); HEMOGLOBIN 10.5 g/dl (12.0-15.5); LYMPH # 1.7 10^3/uL (1.5-5.0); LYMPH % 30.1 % (24.0-44.0); MEAN CORPUSCULAR HEMOGLOBIN 22.8 pg (27.0-33.0); MEAN CORPUSCULAR HGB CONC 29.3 g/dl (32.0-36.5); MEAN CORPUSCULAR VOLUME 77.7 fl (80.0-96.0); MONO # 0.3 10^3/uL (0.0-0.8); MONO % 5.3 % (2.0-8.0); NEUTROPHILS # 3.5 10^3/uL (1.5-8.5); NEUTROPHILS % 62.3 % (36.0-66.0); PLATELET COUNT, AUTOMATED 278 10^3/uL (150-450); RED BLOOD COUNT 4.61 10^6/uL (4.00-5.40); WHITE BLOOD COUNT 5.6 10^3/uL (4.0-10.0)
[2021-01-12 13:04] LABS: ALT/SGPT 22 U/L (12-78); BILIRUBIN,TOTAL 0.4 MG/DL (0.2-1.0); BLOOD UREA NITROGEN 12 MG/DL (7-18); CALCIUM LEVEL 9.3 MG/DL (8.5-10.1); CARBON DIOXIDE LEVEL 28 MEQ/L (21-32); CHLORIDE LEVEL 109 MEQ/L (98-107); CREATININE FOR GFR 0.85 MG/DL (0.55-1.30); GLOMERULAR FILTRATION RATE > 60.0 (>60); GLUCOSE, FASTING 91 MG/DL (70-100); POTASSIUM SERUM 4.2 MEQ/L (3.5-5.1); SODIUM LEVEL 141 MEQ/L (136-145); TOTAL PROTEIN 7.2 GM/DL (6.4-8.2)
== END ==
LOC: M WUC 09:12
PROVIDERS: ATTEND Physician Assistant
DX: R43.8 Other disturbances of smell and taste (principal)

== ENCOUNTER → 2021-01-15 | Outpatient (CLI) | payer OTHER ==
[2021-01-15 20:21] LABS: HEMOGLOBIN A1c 5.5 %
[2021-01-16 01:12] LABS: PERCENT SATURATION 8.1 % (13.2-45.0)
[2021-01-16 12:10] LABS: TOTAL 25(OH) VITAMIN D 13.8 NG/ML (30.0-100.0)
== END ==
LOC: M WUC 15:10
PROVIDERS: ATTEND Family Medicine
DX: E55.9 Vitamin D deficiency, unspecified (principal); D64.9 Anemia, unspecified; E88.81 Metabolic syndrome and other insulin resistance

== ENCOUNTER → 2021-01-15 | Outpatient (REF) | payer OTHER | LOC: M SFHCPLAZ 14:46 | DX: E55.9 Vitamin D deficiency, unspecified (principal); D64.9 Anemia, unspecified; E88.81 Metabolic syndrome and other insulin resistance ==

== ENCOUNTER 2021-01-30 11:24 | Outpatient (CLI) | payer OTHER ==
[~2021-01-30] VITALS: Ht 157.5 cm; Wt 72.7 kg
[2021-01-30 11:30] VITALS: BP 134/72
[2021-01-30] MEDS ORDERED: IRON SUCROSE 25 MG in NS 25 ML IV ONE (11:30)
[2021-01-30] MEDS ORDERED: IRON SUCROSE 225 MG in NS 250 ML IV ONE (11:30)
[2021-01-30 12:45] VITALS: BP 122/68
[2021-01-30 14:00] VITALS: BP 113/69
[2021-01-30 15:00] VITALS: BP 124/82
[2021-01-30 16:00] VITALS: BP 112/67
[2021-01-30 16:45] VITALS: BP 114/71
== END 2021-01-30 16:45 | disposition home or self-care (01) ==
LOC: M INFU 11:24
PROVIDERS: ATTEND Student in an Organized Health Care Education/Training Program
DX: D50.9 Iron deficiency anemia, unspecified (principal); Z88.0 Allergy status to penicillin; Z88.2 Allergy status to sulfonamides; Z88.8 Allergy status to other drugs, medicaments and biological substances
CPT/HCPCS: 96365; 96366; J1756

== ENCOUNTER → 2021-01-30 | Outpatient (CLI) | payer OTHER ==
[2021-01-30 12:26] LABS: C REACTIVE PROTEIN QUANTITATIV 1.17 MG/DL (0.00-0.30); LDH LACTATE DEHYDROGENASE 124 U/L (84-246); RHEUMATOID FACTOR QUANT < 10.0 IU/ML (<15.0)
[2021-01-30 12:48] LABS: ERYTHROCYTE SEDIMENTATION RATE 21 mm/hr (0-20)
[2021-02-02 12:07] LABS: ANTINUCLEAR ANTIBODIES DIRECT Negative (Negative); HAPTOGLOBIN 202 mg/dL (33-278)
== END ==
LOC: M LAB 10:15
PROVIDERS: ATTEND Student in an Organized Health Care Education/Training Program
DX: R43.2 Parageusia (principal)

== ENCOUNTER → 2021-02-18 | Outpatient (CLI) | payer OTHER ==
--- NOTE | 2021-02-18 10:26 | REP ---
INDICATION: PARAGEUSIA, DYSGEUSIA. COMPARISON: None. TECHNIQUE: Axial T1, T2, FLAIR, gradient echo, and diffusion-weighted images obtained. Multiplanar T1 pre and postcontrast imaging obtained. FINDINGS: No evidence of restricted diffusion to suggest acute infarction. No gradient echo susceptibility to suggest hemorrhage. The ventricles and extra-axial CSF spaces are within normal limits for age. No mass effect or midline shift. No abnormal fluid collections. Paranasal sinuses and mastoid air cells are clear. Following contrast, no abnormal enhancement. IMPRESSION: Normal examination. <Electronically signed by Santos Roach > 02/18/21 1022
== END ==
LOC: M PLARAD 08:47
PROVIDERS: ATTEND Student in an Organized Health Care Education/Training Program
DX: R43.2 Parageusia (principal)

== ENCOUNTER → 2021-03-20 | Outpatient (REF) | payer OTHER | LOC: CANPREREF → M SFHCPLAZ 09:39 | PROVIDERS: ATTEND Family Medicine | DX: Z53.20 Procedure and treatment not carried out because of patient's decision for unspecified reasons (principal) ==

== ENCOUNTER → 2021-03-20 | Outpatient (CLI) | payer OTHER ==
[2021-03-20 11:35] LABS: BASO % 0.3 % (0.0-1.0); EOS # 0.1 10^3/uL (0.0-0.5); EOS % 0.8 % (0.0-3.0); HEMATOCRIT 36.7 % (36.0-47.0); LYMPH # 1.9 10^3/uL (1.5-5.0); LYMPH % 29.5 % (24.0-44.0); MEAN CORPUSCULAR VOLUME 80.1 fl (80.0-96.0); MONO # 0.4 10^3/uL (0.0-0.8); MONO % 6.4 % (2.0-8.0); NEUTROPHILS # 3.9 10^3/uL (1.5-8.5); NEUTROPHILS % 62.7 % (36.0-66.0); PLATELET COUNT, AUTOMATED 233 10^3/uL (150-450); RED BLOOD COUNT 4.58 10^6/uL (4.00-5.40); WHITE BLOOD COUNT 6.3 10^3/uL (4.0-10.0)
[2021-03-20 12:04] LABS: ERYTHROCYTE SEDIMENTATION RATE 27 mm/hr (0-20)
[2021-03-20 12:15] LABS: ALBUMIN 3.9 GM/DL (3.2-5.2); ALT/SGPT 18 U/L (12-78); BILIRUBIN,TOTAL 0.3 MG/DL (0.2-1.0); BLOOD UREA NITROGEN 14 MG/DL (7-18); CALCIUM LEVEL 9.3 MG/DL (8.5-10.1); CARBON DIOXIDE LEVEL 26 MEQ/L (21-32); CHLORIDE LEVEL 109 MEQ/L (98-107); CREATININE FOR GFR 0.66 MG/DL (0.55-1.30); GLOMERULAR FILTRATION RATE > 60.0 (>60); GLUCOSE, FASTING 88 MG/DL (70-100); POTASSIUM SERUM 4.3 MEQ/L (3.5-5.1); SODIUM LEVEL 142 MEQ/L (136-145); TOTAL PROTEIN 6.7 GM/DL (6.4-8.2)
== END ==
LOC: M WUC 10:00
PROVIDERS: ATTEND Student in an Organized Health Care Education/Training Program
DX: R43.2 Parageusia (principal); D50.9 Iron deficiency anemia, unspecified

== ENCOUNTER → 2021-04-01 | Outpatient (REF) | payer OTHER | LOC: M SFHCPLAZ 08:55 | PROVIDERS: ATTEND Family Medicine | DX: Z53.8 Procedure and treatment not carried out for other reasons (principal) ==

== ENCOUNTER → 2021-05-20 | Outpatient (CLI) | payer OTHER ==
[2021-05-20 17:35] LABS: HEMATOCRIT 37.7 % (36.0-47.0); HEMOGLOBIN 11.6 g/dl (12.0-15.5); MEAN CORPUSCULAR HEMOGLOBIN 25.2 pg (27.0-33.0); MEAN CORPUSCULAR HGB CONC 30.8 g/dl (32.0-36.5); MEAN CORPUSCULAR VOLUME 81.8 fl (80.0-96.0); PLATELET COUNT, AUTOMATED 203 10^3/uL (150-450); RED BLOOD COUNT 4.61 10^6/uL (4.00-5.40); WHITE BLOOD COUNT 7.6 10^3/uL (4.0-10.0)
[2021-05-20 17:48] LABS: ALBUMIN 3.9 GM/DL (3.2-5.2); ALT/SGPT 24 U/L (12-78); BILIRUBIN,TOTAL 0.4 MG/DL (0.2-1.0); BLOOD UREA NITROGEN 11 MG/DL (7-18); CALCIUM LEVEL 9.1 MG/DL (8.5-10.1); CARBON DIOXIDE LEVEL 24 MEQ/L (21-32); CHLORIDE LEVEL 109 MEQ/L (98-107); CREATININE FOR GFR 0.64 MG/DL (0.55-1.30); FERRITIN 11 NG/ML (8-252); GLOMERULAR FILTRATION RATE > 60.0 (>60); GLUCOSE, FASTING 79 MG/DL (70-100); IRON (FE) 25 UG/DL (50-170); PERCENT SATURATION 7.9 % (13.2-45.0); SODIUM LEVEL 142 MEQ/L (136-145); TOTAL IRON BINDING CAPACITY 316 UG/DL (250-450); TOTAL PROTEIN 7.1 GM/DL (6.4-8.2)
== END ==
LOC: M PLALAB 14:38
PROVIDERS: ATTEND Student in an Organized Health Care Education/Training Program
DX: D50.9 Iron deficiency anemia, unspecified (principal)

== ENCOUNTER → 2021-05-21 | Outpatient (REF) | payer OTHER | LOC: M SFHCWAGY 17:22 | PROVIDERS: ATTEND Specialist | DX: Z01.419 Encounter for gynecological examination (general) (routine) without abnormal findings (principal); R87.615 Unsatisfactory cytologic smear of cervix; R87.618 Other abnormal cytological findings on specimens from cervix uteri; R87.810 Cervical high risk human papillomavirus (HPV) DNA test positive ==

== ENCOUNTER 2021-05-22 14:19 | Outpatient (CLI) | payer OTHER ==
[~2021-05-22] VITALS: Ht 157.5 cm; Wt 66.8 kg
[~2021-05-22 14:19] MED LIST changes: +ALBUTEROL SULFATE 2.5 MG/0.5 ML INH NEB SOLN INH PRN; +EPINEPHrine INJ 1 MG/ML 1ML AMP IM PRN; +diphenhydrAMINE 50MG/ML VIAL (J1200) IV PRN; +methylPREDNISolone 125MG 2ML VIAL IV PRN
[2021-05-22 15:15] VITALS: BP 121/76
[2021-05-22] MEDS ORDERED: NS 1,000 ML IV SCH (16:00)
[2021-05-22] MEDS ORDERED: diphenhydrAMINE 25MG CAP PO ONE (16:00)
[2021-05-22] MEDS ORDERED: IRON SUCROSE 200 MG in NS 190 ML IV ONE (16:00)
[2021-05-22 17:34] VITALS: BP 119/66
== END 2021-05-22 17:35 | disposition home or self-care (01) ==
LOC: M INFU 14:19
PROVIDERS: ATTEND Student in an Organized Health Care Education/Training Program
DX: R43.2 Parageusia (principal); Z88.0 Allergy status to penicillin; Z88.1 Allergy status to other antibiotic agents; Z88.2 Allergy status to sulfonamides
CPT/HCPCS: 96365; 96366; J1756

== ENCOUNTER → 2021-06-08 | Outpatient (CLI) | payer OTHER ==
[~2021-06-08] MED LIST changes: -ALBUTEROL SULFATE 2.5 MG/0.5 ML INH NEB SOLN INH PRN; +BUPR300T92 PO; -EPINEPHrine INJ 1 MG/ML 1ML AMP IM PRN; +METF10004 PO; +OMEP40CA5 PO; +PRED10TA2 PO; -diphenhydrAMINE 50MG/ML VIAL (J1200) IV PRN; -methylPREDNISolone 125MG 2ML VIAL IV PRN
[2021-06-08 18:21] LABS: C REACTIVE PROTEIN QUANTITATIV 1.64 MG/DL (0.00-0.30); THYROID STIMULATING HORMONE 3.03 uIU/ML (0.358-3.740)
== END ==
LOC: M LAB 16:53
PROVIDERS: ATTEND Student in an Organized Health Care Education/Training Program
DX: R53.83 Other fatigue (principal)

== ENCOUNTER → 2021-06-25 | Outpatient (CLI) | payer OTHER ==
[~2021-06-25] MED LIST changes: -BUPR300T92 PO; -METF10004 PO; -OMEP40CA5 PO; -PRED10TA2 PO
[2021-06-25 17:56] LABS: HEMATOCRIT 39.7 % (36.0-47.0); HEMOGLOBIN 12.4 g/dl (12.0-15.5); MEAN CORPUSCULAR HEMOGLOBIN 26.1 pg (27.0-33.0); MEAN CORPUSCULAR HGB CONC 31.2 g/dl (32.0-36.5); MEAN CORPUSCULAR VOLUME 83.4 fl (80.0-96.0); PLATELET COUNT, AUTOMATED 229 10^3/uL (150-450); RED BLOOD COUNT 4.76 10^6/uL (4.00-5.40)
[2021-06-25 18:33] LABS: ALBUMIN 4.1 GM/DL (3.2-5.2); ALT/SGPT 26 U/L (12-78); BILIRUBIN,TOTAL 0.5 MG/DL (0.2-1.0); BLOOD UREA NITROGEN 13 MG/DL (7-18); CALCIUM LEVEL 9.1 MG/DL (8.5-10.1); CARBON DIOXIDE LEVEL 26 MEQ/L (21-32); CHLORIDE LEVEL 107 MEQ/L (98-107); CREATININE FOR GFR 0.62 MG/DL (0.55-1.30); FERRITIN 25 NG/ML (8-252); FREE T4 0.94 NG/DL (0.76-1.46); GLOMERULAR FILTRATION RATE > 60.0 (>58); GLUCOSE, FASTING 72 MG/DL (70-100); IRON (FE) 58 UG/DL (50-170); POTASSIUM SERUM 4.1 MEQ/L (3.5-5.1); RHEUMATOID FACTOR QUANT < 10.0 IU/ML (<15.0); SODIUM LEVEL 139 MEQ/L (136-145); TOTAL IRON BINDING CAPACITY 323 UG/DL (250-450); TOTAL PROTEIN 7.1 GM/DL (6.4-8.2)
[2021-06-25 18:35] LABS: TOTAL 25(OH) VITAMIN D 33.9 NG/ML (30.0-100.0)
[2021-06-25 19:04] LABS: ERYTHROCYTE SEDIMENTATION RATE 17 mm/hr (0-20)
[2021-06-30 00:08] LABS: ANA (HEP2) Positive (.); COMPLEMENT TOTAL (CH50) > 60 U/mL (>41); CYCLIC CITRULLINATED PEPTIDE 5 units (0-19); SSA SJOGRENS A <0.2 AI (0.0-0.9); SSB SJOGRENS B <0.2 AI (0.0-0.9); TRANSFERRIN 242 mg/dL (192-364)
== END ==
LOC: M LAB 16:35
PROVIDERS: ATTEND Family Medicine
DX: R53.82 Chronic fatigue, unspecified (principal); D50.9 Iron deficiency anemia, unspecified; E55.9 Vitamin D deficiency, unspecified

== ENCOUNTER → 2021-07-27 | Outpatient (CLI) | payer OTHER ==
[~2021-07-27] MED LIST changes: +BUPR300T92 PO; +METF10004 PO; +OMEP-221 PO; +PRED10TA2 PO
== END ==
LOC: M LABSMTC 09:28
PROVIDERS: ATTEND Anesthesiology
DX: Z01.818 Encounter for other preprocedural examination (principal); Z11.52 Encounter for screening for COVID-19

== ENCOUNTER 2021-07-29 10:01 | Day surgery (SDC) | payer OTHER ==
[~2021-07-29] VITALS: Ht 157.5 cm; Wt 68.0 kg
[~2021-07-29 10:01] MED LIST changes: +NS 1,000 ML IV ONE
[2021-07-29] MEDS ORDERED: LIDOCAINE 2% 100MG/5ML SDV (FOR ANES.) As Ordered ONE (11:29)
[2021-07-29] MEDS ORDERED: propofoL 200 MG/20 ML VIAL As Ordered ONE (11:29)
[2021-07-29] MEDS ORDERED: fentaNYL 100 MCG/2 ML INJECTION (J3010) As Ordered ONE (11:30)
--- NOTE | 2021-07-29 12:17 | ROOR ---
Patient Name: Althea Saldivar Procedure Date: 07/29/2021 12:04 PM Date of : 1980 Age: 41 Room: [facility] Gender: Female Note Status: Finalized Procedure: Upper Endoscopy + Biopsies Indications: Unexplained iron deficiency anemia Providers: Jerald Ramirez MD Referring MD: MANDO VALLADARES MD Requesting Provider: Medicines: Monitored Anesthesia Care Complications: No immediate complications. Procedure: Pre-Anesthesia Assessment: - The heart rate, respiratory rate, oxygen saturations, blood pressure, adequacy of pulmonary ventilation, and response to care were monitored throughout the procedure. The Endoscope was introduced through the mouth, and advanced to the second part of duodenum. The upper GI endoscopy was accomplished without difficulty. The patient tolerated the procedure well. Findings: The Z-line was variable and was found 35 cm from the incisors. Multiple biopsies were obtained with cold forceps for evaluation to rule out Solorio's Esophagus randomly at the gastroesophageal junction. A small hiatal hernia was present. No other significant abnormalities were identified in a careful examination of the stomach. Biopsies were taken with a cold forceps in the gastric antrum for Helicobacter pylori testing. The exam of the duodenum was otherwise normal. Biopsies for histology were taken with a cold forceps in the first portion of the duodenum for evaluation of celiac disease. The exam was otherwise without abnormality. Impression: - Z-line variable, 35 cm from the incisors. - Small hiatal hernia. - The examination was otherwise normal. - Multiple biopsies were obtained at the gastroesophageal junction. - Biopsies were taken with a cold forceps for Helicobacter pylori testing. - Biopsies were taken with a cold forceps for evaluation of celiac disease. - The examination was otherwise normal. Recommendation: - Patient has a contact number available for emergencies. The signs and symptoms of potential delayed complications were discussed with the patient. Return to normal activities tomorrow. Written discharge instructions were provided to the patient. - High fiber diet. - Discharge patient to home. - Continue present medications. - Await pathology results. - Telephone GI clinic for pathology results in 1 week. - Return to referring physician. - The findings and recommendations were discussed with the patient. Procedure Code(s): --- Professional --- 97613, Esophagogastroduodenoscopy, flexible, transoral; with biopsy, single or multiple Diagnosis Code(s): --- Professional --- K22.8, Other specified diseases of esophagus K44.9, Diaphragmatic hernia without obstruction or gangrene D50.9, Iron deficiency anemia, unspecified CPT copyright 2019 [employer]. All rights reserved. The codes documented in this report are preliminary and upon open die inspector review may be revised to meet current compliance requirements. Jerald Ramirez MD Jerald Ramirez MD 07/29/2021 12:17:25 PM Electronically signed by Jerald Ramirez MD Number of Addenda: 0 Note Initiated On: 07/29/2021 12:04 PM Estimated Blood Loss: Estimated blood loss: none.
[2021-07-29] MEDS ORDERED: PHENYLephrine 500MCG 5ML (100MCG/ML) SYRINGE As Ordered ONE (12:23)
--- NOTE | 2021-07-29 12:34 | ROOR ---
Patient Name: Althea Saldivar Procedure Date: 07/29/2021 12:05 PM Date of : 1980 Age: 41 Room: [facility] Gender: Female Note Status: Finalized Procedure: Total Colonoscopy to Cecum Indications: Unexplained iron deficiency anemia Providers: Jerald Ramirez MD Referring MD: MANDO VALLADARES MD Requesting Provider: Medicines: Monitored Anesthesia Care Complications: No immediate complications. Procedure: Pre-Anesthesia Assessment: - The heart rate, respiratory rate, oxygen saturations, blood pressure, adequacy of pulmonary ventilation, and response to care were monitored throughout the procedure. The Colonoscope was introduced through the anus and advanced to the cecum, identified by appendiceal orifice and ileocecal valve. The colonoscopy was performed without difficulty. The patient tolerated the procedure well. The quality of the bowel preparation was good. Findings: The perianal and digital rectal examinations were normal. No other significant abnormalities were identified in a careful examination of the remainder of the colon. The exam was otherwise without abnormality on direct and retroflexion views. Impression: - The examination was otherwise normal on direct and retroflexion views. - No specimens collected. - The exam was otherwise normal to the cecum. Recommendation: - Patient has a contact number available for emergencies. The signs and symptoms of potential delayed complications were discussed with the patient. Return to normal activities tomorrow. Written discharge instructions were provided to the patient. - High fiber diet. - Discharge patient to home. - Continue present medications. - Repeat colonoscopy in 10 years for screening purposes. - Return to referring physician. - The findings and recommendations were discussed with the patient. Procedure Code(s): --- Professional --- 05888, Colonoscopy, flexible; diagnostic, including collection of specimen(s) by brushing or washing, when performed (separate procedure) Diagnosis Code(s): --- Professional --- D50.9, Iron deficiency anemia, unspecified CPT copyright 2019 [employer]. All rights reserved. The codes documented in this report are preliminary and upon medical biller coder review may be revised to meet current compliance requirements. Jerald Ramirez MD Jerald Ramirez MD 07/29/2021 12:34:12 PM Electronically signed by Jerald Ramirez MD Number of Addenda: 0 Note Initiated On: 07/29/2021 12:05 PM Estimated Blood Loss: Estimated blood loss: none.
[2021-07-29 12:55] VITALS: BP 133/67
== END 2021-07-29 13:08 | disposition home or self-care (01) ==
LOC: M OPP 10:01
PROVIDERS: ATTEND Internal Medicine Gastroenterology
DX: D50.9 Iron deficiency anemia, unspecified (principal); K21.9 Gastro-esophageal reflux disease without esophagitis; K22.8 Other specified diseases of esophagus; K44.9 Diaphragmatic hernia without obstruction or gangrene; R12 Heartburn; E11.9 Type 2 diabetes mellitus without complications; Z79.84 Long term (current) use of oral hypoglycemic drugs; Z88.0 Allergy status to penicillin; Z88.1 Allergy status to other antibiotic agents; Z88.2 Allergy status to sulfonamides
CPT/HCPCS: 43239; 45378; 88305; J2370; J3010

== ENCOUNTER → 2021-09-30 | Outpatient (CLI) | payer OTHER ==
[~2021-09-30] MED LIST changes: -NS 1,000 ML IV ONE; -OMEP-221 PO; +OMEP40CA5 PO
== END ==
LOC: M SLEEP HO 14:58
PROVIDERS: ATTEND Nurse Practitioner Family
DX: R06.83 Snoring (principal)

== ENCOUNTER → 2021-12-16 | Outpatient (REF) | payer OTHER ==
[2021-12-16 12:22] LABS: APPEARANCE, URINE HAZY (CLEAR); BACTERIA, URINE AUTO 1+ (NEGATIVE); BILIRUBIN, URINE AUTO NEGATIVE (NEGATIVE); BLOOD, URINE BLOOD NEGATIVE (NEGATIVE); COLOR, URINE YELLOW (YELLOW); GLUCOSE, URINE (UA) AUTO NEGATIVE (NEGATIVE); KETONE, URINE AUTO NEGATIVE (NEGATIVE); LEUKOCYTE ESTERASE, URINE AUTO TRACE (NEGATIVE); MUCUS, URINE SMALL (NEGATIVE); NITRITE, URINE AUTO NEGATIVE (NEGATIVE); PROTEIN, URINE AUTO NEGATIVE (NEGATIVE); RBC, URINE AUTO 1 /HPF (0-3); SPECIFIC GRAVITY URINE AUTO 1.018 (1.002-1.035); SQUAMOUS EPITHELIAL CELL UR AU 1 /HPF (0-6); UROBILINOGEN, URINE AUTO 0.2 mg/dL (0.0-2.0); WBC, URINE AUTO 1 /HPF (0-3)
[2021-12-16 12:23] LABS: BASO % 0.6 % (0.0-1.0); EOS # 0.1 10^3/uL (0.0-0.5); EOS % 1.4 % (0.0-3.0); HEMATOCRIT 39.4 % (36.0-47.0); HEMOGLOBIN 12.3 g/dl (12.0-15.5); LYMPH # 1.9 10^3/uL (1.5-5.0); LYMPH % 28.1 % (24.0-44.0); MEAN CORPUSCULAR HEMOGLOBIN 25.7 pg (27.0-33.0); MEAN CORPUSCULAR HGB CONC 31.2 g/dl (32.0-36.5); MEAN CORPUSCULAR VOLUME 82.4 fl (80.0-96.0); MONO # 0.4 10^3/uL (0.0-0.8); NEUTROPHILS # 4.2 10^3/uL (1.5-8.5); NEUTROPHILS % 63.4 % (36.0-66.0); PLATELET COUNT, AUTOMATED 219 10^3/uL (150-450); RED BLOOD COUNT 4.78 10^6/uL (4.00-5.40); WHITE BLOOD COUNT 6.7 10^3/uL (4.0-10.0)
[2021-12-16 12:39] LABS: TOTAL PROTEIN,RANDOM URINE 10.6 MG/DL (0.0-12.0)
[2021-12-16 12:46] LABS: ERYTHROCYTE SEDIMENTATION RATE 15 mm/hr (0-20)
[2021-12-16 13:02] LABS: ALBUMIN 4.1 GM/DL (3.2-5.2); ALT/SGPT 19 U/L (12-78); BILIRUBIN,TOTAL 0.3 MG/DL (0.2-1.0); BLOOD UREA NITROGEN 16 MG/DL (7-18); C REACTIVE PROTEIN QUANTITATIV 0.93 MG/DL (0.00-0.30); CALCIUM LEVEL 8.8 MG/DL (8.5-10.1); CARBON DIOXIDE LEVEL 28 MEQ/L (21-32); CHLORIDE LEVEL 107 MEQ/L (98-107); COMPLEMENT C3 125 MG/DL (90-180); COMPLEMENT C4 29 MG/DL (10-40); CREATININE FOR GFR 0.75 MG/DL (0.55-1.30); GLOMERULAR FILTRATION RATE > 60.0 (>58); GLUCOSE, FASTING 85 MG/DL (70-100); IMMUNOGLOBULIN G 726 MG/DL (681-1648); POTASSIUM SERUM 4.1 MEQ/L (3.5-5.1); SODIUM LEVEL 141 MEQ/L (136-145); TOTAL PROTEIN 7.2 GM/DL (6.4-8.2); VITAMIN B12 LEVEL 378 PG/ML (247-911)
[2021-12-17 10:21] LABS: ALBUMIN 4.38 GM/DL (3.29-5.55); ALBUMIN % 60.9 % (55.8-66.1); ALPHA-1-GLOBULIN % 4.8 % (2.9-4.9); ALPHA-1-GLOBULINS 0.35 GM/DL (0.17-0.41); ALPHA-2-GLOBULINS 0.92 GM/DL (0.42-0.99); ALPHA-2-GLOBULINS % 12.8 % (7.1-11.8); BETA-1-GLOBULINS 0.44 GM/DL (0.28-0.60); BETA-1-GLOBULINS % 6.1 % (4.7-7.2); BETA-2-GLOBULINS 0.35 GM/DL (0.19-0.55); BETA-2-GLOBULINS % 4.8 % (3.2-6.5); GAMMA GLOBULIN % 10.6 % (11.1-18.8); GAMMA GLOBULINS 0.76 GM/DL (0.65-1.58)
== END ==
LOC: M SFHCRHEU 10:47
PROVIDERS: ATTEND Internal Medicine Rheumatology
DX: R76.8 Other specified abnormal immunological findings in serum (principal); R79.82 Elevated C-reactive protein (CRP); R53.83 Other fatigue

== ENCOUNTER → 2021-12-18 | Outpatient (CLI) | payer OTHER | LOC: M LABSMTC 11:24 | PROVIDERS: ATTEND Family Medicine | DX: Z11.52 Encounter for screening for COVID-19 (principal); Z20.822 Contact with and (suspected) exposure to COVID-19 ==

== ENCOUNTER → 2022-01-15 | Outpatient (CLI) | payer OTHER ==
[2022-01-15 11:28] LABS: HEMATOCRIT 38.3 % (36.0-47.0); MEAN CORPUSCULAR HEMOGLOBIN 25.2 pg (27.0-33.0); MEAN CORPUSCULAR HGB CONC 31.3 g/dl (32.0-36.5); MEAN CORPUSCULAR VOLUME 80.3 fl (80.0-96.0); PLATELET COUNT, AUTOMATED 234 10^3/uL (150-450); RED BLOOD COUNT 4.77 10^6/uL (4.00-5.40); WHITE BLOOD COUNT 6.9 10^3/uL (4.0-10.0)
[2022-01-15 12:01] LABS: HEMOGLOBIN A1c 5.2 %
[2022-01-15 12:18] LABS: BLOOD UREA NITROGEN 18 MG/DL (7-18); C REACTIVE PROTEIN QUANTITATIV 1.46 MG/DL (0.00-0.30); CARBON DIOXIDE LEVEL 27 MEQ/L (21-32); CHLORIDE LEVEL 110 MEQ/L (98-107); CREATININE FOR GFR 0.81 MG/DL (0.55-1.30); FERRITIN 8 NG/ML (8-252); GLOMERULAR FILTRATION RATE > 60.0 (>58); GLUCOSE, FASTING 93 MG/DL (70-100); IRON (FE) 40 UG/DL (50-170); PERCENT SATURATION 11.3 % (13.2-45.0); POTASSIUM SERUM 4.5 MEQ/L (3.5-5.1); SODIUM LEVEL 140 MEQ/L (136-145); TOTAL 25(OH) VITAMIN D 24.8 NG/ML (30.0-100.0); TOTAL IRON BINDING CAPACITY 354 UG/DL (250-450)
[2022-01-17 15:08] LABS: BETA-2 GLYCOPROTEIN I ABY IGA <9 (0-25); BETA-2 GLYCOPROTEIN I ABY IGG 16 (0-20); BETA-2 GLYCOPROTEIN I ABY IGM 10 (0-32); CARDIOLIPIN IGA ANTIBODY <9 APL U/mL (0-11); CARDIOLIPIN IGG ANTIBODY <9 GPL U/mL (0-14); CARDIOLIPIN IGM ANTIBODY 12 MPL U/mL (0-12); INSULIN LEVEL 6.4 uIU/mL (2.6-24.9)
== END ==
LOC: M PLALAB 08:24
PROVIDERS: ATTEND Family Medicine
DX: R79.82 Elevated C-reactive protein (CRP) (principal); E88.81 Metabolic syndrome and other insulin resistance; R58 Hemorrhage, not elsewhere classified; Z86.2 Personal history of diseases of the blood and blood-forming organs and certain disorders involving the immune mechanism

== ENCOUNTER → 2022-01-15 | Outpatient (CLI) | payer OTHER | LOC: M PLAIMG 08:27 | PROVIDERS: ATTEND Internal Medicine Rheumatology | DX: R76.8 Other specified abnormal immunological findings in serum (principal) ==

== ENCOUNTER → 2022-03-03 | Outpatient (CLI) | payer OTHER | LOC: M SLEEP 20:00 | PROVIDERS: ATTEND Nurse Practitioner Family | DX: G47.33 Obstructive sleep apnea (adult) (pediatric) (principal) ==

== ENCOUNTER → 2022-08-03 | Outpatient (CLI) | payer OTHER | LOC: M SOG 15:38 | PROVIDERS: ATTEND Physician Assistant | DX: M79.642 Pain in left hand (principal) ==

== ENCOUNTER → 2022-08-12 | Outpatient (CLI) | payer OTHER ==
[2022-08-12 08:13] LABS: BASO % 0.6 % (0.0-1.0); EOS # 0.1 10^3/uL (0.0-0.5); HEMATOCRIT 36.7 % (36.0-47.0); HEMOGLOBIN 10.9 g/dl (12.0-15.5); LYMPH # 1.7 10^3/uL (1.5-5.0); LYMPH % 24.3 % (24.0-44.0); MEAN CORPUSCULAR HEMOGLOBIN 23.4 pg (27.0-33.0); MEAN CORPUSCULAR HGB CONC 29.7 g/dl (32.0-36.5); MEAN CORPUSCULAR VOLUME 78.9 fl (80.0-96.0); MONO # 0.3 10^3/uL (0.0-0.8); MONO % 4.7 % (2.0-8.0); NEUTROPHILS # 4.9 10^3/uL (1.5-8.5); NEUTROPHILS % 69.1 % (36.0-66.0); PLATELET COUNT, AUTOMATED 261 10^3/uL (150-450); RED BLOOD COUNT 4.65 10^6/uL (4.00-5.40)
[2022-08-12 08:53] LABS: ERYTHROCYTE SEDIMENTATION RATE 23 mm/hr (0-20)
[2022-08-12 09:03] LABS: ALBUMIN 3.9 GM/DL (3.2-5.2); ALT/SGPT 20 U/L (12-78); BILIRUBIN,TOTAL 0.2 MG/DL (0.2-1.0); BLOOD UREA NITROGEN 17 MG/DL (7-18); C REACTIVE PROTEIN QUANTITATIV 1.31 MG/DL (0.00-0.30); CARBON DIOXIDE LEVEL 27 MEQ/L (21-32); CHLORIDE LEVEL 107 MEQ/L (98-107); CREATININE FOR GFR 0.79 MG/DL (0.55-1.30); GLOMERULAR FILTRATION RATE > 60.0 (>58); GLUCOSE, FASTING 88 MG/DL (70-100); POTASSIUM SERUM 4.2 MEQ/L (3.5-5.1); SODIUM LEVEL 138 MEQ/L (136-145); TOTAL PROTEIN 7.3 GM/DL (6.4-8.2)
== END ==
LOC: M LAB 07:18
PROVIDERS: ATTEND Internal Medicine Rheumatology
DX: M35.9 Systemic involvement of connective tissue, unspecified (principal)

== ENCOUNTER → 2022-08-18 | Outpatient (CLI) | payer OTHER ==
[2022-08-18 17:57] LABS: BASO % 0.6 % (0.0-1.0); EOS # 0.1 10^3/uL (0.0-0.5); EOS % 0.8 % (0.0-3.0); HEMATOCRIT 36.2 % (36.0-47.0); MEAN CORPUSCULAR HEMOGLOBIN 23.4 pg (27.0-33.0); MEAN CORPUSCULAR HGB CONC 30.4 g/dl (32.0-36.5); MONO # 0.5 10^3/uL (0.0-0.8); MONO % 6.3 % (2.0-8.0); NEUTROPHILS # 4.6 10^3/uL (1.5-8.5); NEUTROPHILS % 63.9 % (36.0-66.0); PLATELET COUNT, AUTOMATED 239 10^3/uL (150-450); WHITE BLOOD COUNT 7.1 10^3/uL (4.0-10.0)
[2022-08-18 18:43] LABS: ALBUMIN 4.1 GM/DL (3.2-5.2); ALT/SGPT 21 U/L (12-78); BILIRUBIN,TOTAL 0.4 MG/DL (0.2-1.0); BLOOD UREA NITROGEN 14 MG/DL (7-18); CALCIUM LEVEL 9.2 MG/DL (8.5-10.1); CARBON DIOXIDE LEVEL 28 MEQ/L (21-32); CHLORIDE LEVEL 105 MEQ/L (98-107); CREATININE FOR GFR 0.79 MG/DL (0.55-1.30); FERRITIN 4 NG/ML (8-252); FREE T4 1.01 NG/DL (0.76-1.46); GLOMERULAR FILTRATION RATE > 60.0 (>58); GLUCOSE, FASTING 73 MG/DL (70-100); IRON (FE) 35 UG/DL (50-170); PERCENT SATURATION 9.4 % (13.2-45.0); POTASSIUM SERUM 4.5 MEQ/L (3.5-5.1); SODIUM LEVEL 139 MEQ/L (136-145); TOTAL IRON BINDING CAPACITY 373 UG/DL (250-450); TOTAL PROTEIN 7.3 GM/DL (6.4-8.2)
[2022-08-18 18:58] LABS: TOTAL 25(OH) VITAMIN D 30.1 NG/ML (30.0-100.0)
== END ==
LOC: M PLALAB 15:07
PROVIDERS: ATTEND Physician Assistant
DX: L65.9 Nonscarring hair loss, unspecified (principal); E55.9 Vitamin D deficiency, unspecified; D50.9 Iron deficiency anemia, unspecified; R53.82 Chronic fatigue, unspecified

== ENCOUNTER 2022-08-23 11:50 | Outpatient (CLI) | payer OTHER ==
[~2022-08-23] VITALS: Ht 160 cm; Wt 75.0 kg
[2022-08-23 11:50] VITALS: BP 146/72
[~2022-08-23 11:50] MED LIST changes: +ALBUTEROL SULFATE 2.5 MG/0.5 ML INH NEB SOLN INH PRN; +EPINEPHrine INJ 1 MG/ML 1ML AMP IM PRN; +diphenhydrAMINE 50MG/ML VIAL (J1200) IV PRN; +methylPREDNISolone 125MG 2ML VIAL IV PRN
[2022-08-23] MEDS ORDERED: NS 1,000 ML IV SCH (12:00)
[2022-08-23] MEDS ORDERED: IRON SUCROSE 250 MG in NS 237.5 ML IV ONE (12:00)
[2022-08-23 13:55] VITALS: BP 119/63
== END 2022-08-23 13:55 | disposition home or self-care (01) ==
LOC: M INFU 11:50
PROVIDERS: ATTEND Physician Assistant
DX: D50.9 Iron deficiency anemia, unspecified (principal); Z88.0 Allergy status to penicillin; Z88.2 Allergy status to sulfonamides; Z88.1 Allergy status to other antibiotic agents; Z88.8 Allergy status to other drugs, medicaments and biological substances
CPT/HCPCS: 96365; J1756

== ENCOUNTER → 2022-12-20 | Outpatient (CLI) | payer OTHER ==
[~2022-12-20] MED LIST changes: -ALBUTEROL SULFATE 2.5 MG/0.5 ML INH NEB SOLN INH PRN; -EPINEPHrine INJ 1 MG/ML 1ML AMP IM PRN; -diphenhydrAMINE 50MG/ML VIAL (J1200) IV PRN; -methylPREDNISolone 125MG 2ML VIAL IV PRN
[2022-12-20 07:33] LABS: HEMOGLOBIN A1c 5.5 % (4.0-6.0)
[2022-12-20 07:40] LABS: HEMATOCRIT 35.8 % (36.0-47.0); MEAN CORPUSCULAR HEMOGLOBIN 25.1 pg (27.0-33.0); MEAN CORPUSCULAR HGB CONC 30.7 g/dl (32.0-36.5); MEAN CORPUSCULAR VOLUME 81.5 fl (80.0-96.0); RED BLOOD COUNT 4.39 10^6/uL (4.00-5.40); WHITE BLOOD COUNT 5.8 10^3/uL (4.0-10.0)
[2022-12-20 08:04] LABS: IRON (FE) 19 UG/DL (50-170)
[2022-12-20 08:05] LABS: PERCENT SATURATION 6.1 % (13.2-45.0); TOTAL IRON BINDING CAPACITY 311 UG/DL (250-425)
[2022-12-20 08:08] LABS: ALBUMIN 3.7 G/DL (3.2-5.2); ALKALINE PHOSPHATASE 115 U/L (46-116); ALT/SGPT 17 U/L (7.0-40); AST/SGOT 18 U/L (<34); BILIRUBIN,TOTAL 0.2 MG/DL (0.3-1.2); BLOOD UREA NITROGEN 16 MG/DL (9-23); CALCIUM LEVEL 8.3 MG/DL (8.5-10.1); CARBON DIOXIDE LEVEL 25 MMOL/L (20-31); CHLORIDE LEVEL 107 MMOL/L (98-107); CHOLESTEROL LEVEL 174 MG/DL (<200); CHOLESTEROL RISK RATIO 4.32 (<5); CREATININE FOR GFR 0.73 MG/DL (0.55-1.30); FERRITIN 5.2 NG/ML (7.3-270.7); GLOMERULAR FILTRATION RATE > 60.0 (>58); GLUCOSE, FASTING 88 MG/DL (60-100); HDL CHOLESTEROL 40.2 MG/DL (>40); LDL CHOLESTEROL 115.8 MG/DL (<100); NON-HDL-C 134 MG/DL; POTASSIUM SERUM 4.1 MMOL/L (3.5-5.1); SODIUM LEVEL 140 MMOL/L (136-145); TOTAL 25(OH) VITAMIN D 18.9 NG/ML (20.0-100.0); TOTAL PROTEIN 6.1 G/DL (5.7-8.2); TRIGLYCERIDES LEVEL 90 MG/DL (<150); VITAMIN B12 LEVEL 439 PG/ML (211-911)
[2022-12-20 08:45] LABS: ERYTHROCYTE SEDIMENTATION RATE 24 mm/hr (0-20)
== END ==
LOC: M LAB 06:44
PROVIDERS: ATTEND Family Medicine
DX: Z13.1 Encounter for screening for diabetes mellitus (principal); G47.30 Sleep apnea, unspecified; E55.9 Vitamin D deficiency, unspecified; F33.1 Major depressive disorder, recurrent, moderate; Z13.220 Encounter for screening for lipoid disorders

== ENCOUNTER → 2022-12-31 | Outpatient (CLI) | payer OTHER ==
[2022-12-31 13:38] LABS: BASO % 0.3 % (0.0-1.0); EOS # 0.1 10^3/uL (0.0-0.5); EOS % 0.9 % (0.0-3.0); HEMATOCRIT 35.6 % (36.0-47.0); HEMOGLOBIN 10.9 g/dl (12.0-15.5); LYMPH # 1.8 10^3/uL (1.5-5.0); LYMPH % 18.5 % (24.0-44.0); MEAN CORPUSCULAR HEMOGLOBIN 24.8 pg (27.0-33.0); MEAN CORPUSCULAR HGB CONC 30.6 g/dl (32.0-36.5); MEAN CORPUSCULAR VOLUME 80.9 fl (80.0-96.0); MONO # 0.5 10^3/uL (0.0-0.8); MONO % 5.3 % (2.0-8.0); NEUTROPHILS # 7.4 10^3/uL (1.5-8.5); NEUTROPHILS % 74.7 % (36.0-66.0); PLATELET COUNT, AUTOMATED 244 10^3/uL (150-450); WHITE BLOOD COUNT 9.9 10^3/uL (4.0-10.0)
[2022-12-31 13:51] LABS: BLOOD UREA NITROGEN 17 MG/DL (9-23); CALCIUM LEVEL 9.3 MG/DL (8.5-10.1); CARBON DIOXIDE LEVEL 27 MMOL/L (20-31); CHLORIDE LEVEL 106 MMOL/L (98-107); CREATININE FOR GFR 0.75 MG/DL (0.55-1.30); GLOMERULAR FILTRATION RATE > 60.0 (>58); GLUCOSE, FASTING 79 MG/DL (60-100); IRON (FE) 28 UG/DL (50-170); PERCENT SATURATION 8.8 % (13.2-45.0); POTASSIUM SERUM 4.3 MMOL/L (3.5-5.1); SODIUM LEVEL 140 MMOL/L (136-145); TOTAL IRON BINDING CAPACITY 318 UG/DL (250-425)
== END ==
LOC: M LABDRWAD 10:20
PROVIDERS: ATTEND Physician Assistant
DX: D50.9 Iron deficiency anemia, unspecified (principal)

== ENCOUNTER 2023-01-04 13:40 | Outpatient (CLI) | payer OTHER ==
[~2023-01-04 13:40] MED LIST changes: +ALBUTEROL SULFATE 2.5MG/0.5ML INH NEB SOLN INH PRN; +EPINEPHrine INJ 1 MG/ML 1ML AMP IM PRN; +diphenhydrAMINE 50MG/ML VIAL IV PRN; +methylPREDNISolone 125MG 2ML VIAL IV PRN
[2023-01-04] MEDS ORDERED: IRON SUCROSE 200 MG in NS 190 ML IV ONE (14:00)
[2023-01-04] MEDS ORDERED: NS 1,000 ML IV SCH (14:00)
[2023-01-04 14:05] VITALS: BP 143/75
[2023-01-04 16:15] VITALS: BP 131/81
== END 2023-01-04 16:15 | disposition home or self-care (01) ==
LOC: M INFU 13:40
PROVIDERS: ATTEND Family Medicine
DX: D50.9 Iron deficiency anemia, unspecified (principal); Z88.0 Allergy status to penicillin; Z88.1 Allergy status to other antibiotic agents; Z88.2 Allergy status to sulfonamides
CPT/HCPCS: 96365; J1756

== ENCOUNTER → 2023-02-15 | Outpatient (CLI) | payer OTHER ==
[~2023-02-15] MED LIST changes: -ALBUTEROL SULFATE 2.5MG/0.5ML INH NEB SOLN INH PRN; -EPINEPHrine INJ 1 MG/ML 1ML AMP IM PRN; -diphenhydrAMINE 50MG/ML VIAL IV PRN; -methylPREDNISolone 125MG 2ML VIAL IV PRN
[2023-02-15 10:39] LABS: HEMATOCRIT 38.9 % (36.0-47.0); MEAN CORPUSCULAR HEMOGLOBIN 25.3 pg (27.0-33.0); MEAN CORPUSCULAR HGB CONC 30.8 g/dl (32.0-36.5); MEAN CORPUSCULAR VOLUME 82.1 fl (80.0-96.0); PLATELET COUNT, AUTOMATED 256 10^3/uL (150-450); RED BLOOD COUNT 4.74 10^6/uL (4.00-5.40); WHITE BLOOD COUNT 6.1 10^3/uL (4.0-10.0)
[2023-02-15 10:43] LABS: PERCENT SATURATION 9.4 % (13.2-45.0)
[2023-02-15 10:45] LABS: FERRITIN 9.3 NG/ML (7.3-270.7)
[2023-02-15 10:55] LABS: FOLATE 13.27 NG/ML (>5.4)
== END ==
LOC: M PLALAB 08:15
PROVIDERS: ATTEND Internal Medicine Hematology
DX: D50.9 Iron deficiency anemia, unspecified (principal)

== ENCOUNTER → 2023-02-15 | Outpatient (REF) | payer OTHER | LOC: M SFHCPLAZ 07:44 | PROVIDERS: ATTEND Internal Medicine Hematology | DX: Z53.20 Procedure and treatment not carried out because of patient's decision for unspecified reasons (principal) ==

== ENCOUNTER 2023-02-18 11:10 | Outpatient (CLI) | payer OTHER ==
[~2023-02-18 11:10] MED LIST changes: +ALBUTEROL SULFATE 2.5MG/0.5ML INH NEB SOLN INH PRN; +EPINEPHrine INJ 1 MG/ML 1ML AMP IM PRN; +diphenhydrAMINE 50MG/ML VIAL IV PRN; +methylPREDNISolone 125MG 2ML VIAL IV PRN
[2023-02-18] MEDS ORDERED: FERRIC CARBOXYMALTOSE INJ 750 MG in NS 250 ML (>50kg) IV ONE ×6 (11:15→15:30)
[2023-02-18] MEDS ORDERED: NS 1,000 ML IV SCH ×2 (11:20→15:30)
[2023-02-18 11:35] VITALS: BP 126/92
[2023-02-18 12:47] VITALS: BP 127/71
== END 2023-02-18 12:50 | disposition home or self-care (01) ==
LOC: M INFU 11:10
PROVIDERS: ATTEND Internal Medicine Hematology
DX: D50.9 Iron deficiency anemia, unspecified (principal); Z88.0 Allergy status to penicillin; Z88.2 Allergy status to sulfonamides; Z88.1 Allergy status to other antibiotic agents
CPT/HCPCS: 96365; J1439

== ENCOUNTER → 2023-03-22 | Outpatient (REF) | payer OTHER ==
[~2023-03-22] MED LIST changes: -ALBUTEROL SULFATE 2.5MG/0.5ML INH NEB SOLN INH PRN; -EPINEPHrine INJ 1 MG/ML 1ML AMP IM PRN; -diphenhydrAMINE 50MG/ML VIAL IV PRN; -methylPREDNISolone 125MG 2ML VIAL IV PRN
== END ==
LOC: M LAB REF 16:17
PROVIDERS: ATTEND Physician Assistant
DX: R05.9 Cough, unspecified (principal)

== ENCOUNTER → 2023-06-07 | Outpatient (CLI) | payer OTHER ==
[2023-06-07 18:01] LABS: HEMATOCRIT 38.6 % (36.0-47.0); HEMOGLOBIN 12.3 g/dl (12.0-15.5); MEAN CORPUSCULAR HEMOGLOBIN 28.1 pg (27.0-33.0); MEAN CORPUSCULAR HGB CONC 31.9 g/dl (32.0-36.5); MEAN CORPUSCULAR VOLUME 88.3 fl (80.0-96.0); PLATELET COUNT, AUTOMATED 244 10^3/uL (150-450); RED BLOOD COUNT 4.37 10^6/uL (4.00-5.40); WHITE BLOOD COUNT 6.8 10^3/uL (4.0-10.0)
[2023-06-07 18:26] LABS: PERCENT SATURATION 14.9 % (13.2-45.0)
[2023-06-07 18:28] LABS: FERRITIN 39.5 NG/ML (7.3-270.7)
== END ==
LOC: M PLALAB 16:14
PROVIDERS: ATTEND Internal Medicine Hematology
DX: D50.9 Iron deficiency anemia, unspecified (principal)

== ENCOUNTER 2023-06-28 08:45 | Outpatient (CLI) | payer OTHER ==
[~2023-06-28] VITALS: Ht 157.5 cm; Wt 79.5 kg
[~2023-06-28 08:45] MED LIST changes: +ALBUTEROL SULFATE 2.5MG/0.5ML INH NEB SOLN INH PRN; +EPINEPHrine INJ 1 MG/ML 1ML AMP IM PRN; +diphenhydrAMINE 50MG/ML VIAL IV PRN; +methylPREDNISolone 125MG 2ML VIAL IV PRN
[2023-06-28] MEDS ORDERED: IRON SUCROSE 400 MG in NS 250 ML OVER 2.5 HRS IV ONE (09:00)
[2023-06-28] MEDS ORDERED: NS 1,000 ML IV SCH (09:00)
[2023-06-28 09:14] VITALS: BP 120/68; O2SAT 100
[2023-06-28 10:15] VITALS: BP 128/64; O2SAT 98
[2023-06-28 11:55] VITALS: BP 128/73; O2SAT 97
== END 2023-06-28 12:00 ==
LOC: M INFU 08:45
PROVIDERS: ATTEND Internal Medicine Hematology
DX: D50.9 Iron deficiency anemia, unspecified (principal); Z88.0 Allergy status to penicillin; Z88.2 Allergy status to sulfonamides; Z88.8 Allergy status to other drugs, medicaments and biological substances
CPT/HCPCS: 96365; 96366; J1756

== ENCOUNTER → 2023-06-28 | Outpatient (CLI) | payer OTHER ==
[2023-06-28 09:41] LABS: HEMOGLOBIN A1c 4.9 % (4.0-6.0)
[2023-06-28 10:06] LABS: TOTAL 25(OH) VITAMIN D 20.8 NG/ML (20.0-100.0)
== END ==
LOC: M LAB 08:12
PROVIDERS: ATTEND Family Medicine
DX: Z13.1 Encounter for screening for diabetes mellitus (principal); R53.82 Chronic fatigue, unspecified

== ENCOUNTER 2023-07-05 14:20 | Outpatient (CLI) | payer OTHER ==
[~2023-07-05] VITALS: Ht 157.5 cm; Wt 79.0 kg
[2023-07-05 14:22] VITALS: BP 113/69; O2SAT 98
[2023-07-05] MEDS ORDERED: IRON SUCROSE 400 MG in NS 250 ML OVER 2.5 HRS IV ONE (14:30)
[2023-07-05] MEDS ORDERED: NS 1,000 ML IV SCH (14:30)
[2023-07-05 17:09] VITALS: BP 143/75; O2SAT 99
== END 2023-07-05 15:45 | disposition home or self-care (01) ==
LOC: M INFU 14:20
PROVIDERS: ATTEND Internal Medicine Hematology
DX: D50.9 Iron deficiency anemia, unspecified (principal); Z88.0 Allergy status to penicillin; Z88.2 Allergy status to sulfonamides
CPT/HCPCS: 96365; 96366; J1756

== ENCOUNTER → 2023-10-25 | Outpatient (CLI) | payer BC ==
[~2023-10-25] MED LIST changes: -ALBUTEROL SULFATE 2.5MG/0.5ML INH NEB SOLN INH PRN; -EPINEPHrine INJ 1 MG/ML 1ML AMP IM PRN; -diphenhydrAMINE 50MG/ML VIAL IV PRN; -methylPREDNISolone 125MG 2ML VIAL IV PRN
[2023-10-25 16:09] LABS: HEMATOCRIT 43.1 % (36.0-47.0); HEMOGLOBIN 14.3 g/dl (12.0-15.5); MEAN CORPUSCULAR HEMOGLOBIN 30.3 pg (27.0-33.0); MEAN CORPUSCULAR HGB CONC 33.2 g/dl (32.0-36.5); MEAN CORPUSCULAR VOLUME 91.3 fl (80.0-96.0); PLATELET COUNT, AUTOMATED 252 10^3/uL (150-450); RED BLOOD COUNT 4.72 10^6/uL (4.00-5.40); WHITE BLOOD COUNT 8.5 10^3/uL (4.0-10.0)
[2023-10-25 16:24] LABS: FERRITIN 343.3 NG/ML (7.3-270.7)
[2023-10-25 16:25] LABS: THYROID STIMULATING HORMONE 2.563 uIU/ML (0.55-4.78)
== END ==
LOC: M PLALAB 14:13
PROVIDERS: ATTEND Internal Medicine Hematology
DX: D50.9 Iron deficiency anemia, unspecified (principal); E55.9 Vitamin D deficiency, unspecified

== ENCOUNTER 2023-11-08 14:58 | Outpatient (CLI) | payer BC ==
[~2023-11-08 14:58] MED LIST changes: +ALBUTEROL SULFATE 2.5MG/0.5ML INH NEB SOLN INH PRN; +EPINEPHrine INJ 1 MG/ML 1ML AMP IM PRN; +NS 1,000 ML IV SCH; +diphenhydrAMINE 50MG/ML VIAL IV PRN; +methylPREDNISolone 125MG 2ML VIAL IV PRN
[2023-11-08 15:30] VITALS: BP 168/72; O2SAT 100
[2023-11-08] MEDS ORDERED: IRON SUCROSE 200 MG in NS 100 ML IV ONE (16:00)
[2023-11-08 17:00] VITALS: BP 141/76; O2SAT 100
== END 2023-11-08 17:00 | disposition home or self-care (01) ==
LOC: M INFU 14:58
PROVIDERS: ATTEND Internal Medicine Hematology
DX: D50.9 Iron deficiency anemia, unspecified (principal); Z88.0 Allergy status to penicillin; Z88.1 Allergy status to other antibiotic agents; Z82.2 Family history of deafness and hearing loss
CPT/HCPCS: 96365; J1756

== ENCOUNTER → 2024-02-21 | Outpatient (CLI) | payer BC ==
[~2024-02-21] MED LIST changes: -ALBUTEROL SULFATE 2.5MG/0.5ML INH NEB SOLN INH PRN; -EPINEPHrine INJ 1 MG/ML 1ML AMP IM PRN; -NS 1,000 ML IV SCH; -diphenhydrAMINE 50MG/ML VIAL IV PRN; -methylPREDNISolone 125MG 2ML VIAL IV PRN
[2024-02-21 12:22] LABS: BASO % 0.5 % (0.0-1.0); EOS # 0.1 10^3/uL (0.0-0.5); EOS % 1.2 % (0.0-3.0); HEMATOCRIT 43.4 % (36.0-47.0); LYMPH % 24.2 % (24.0-44.0); MEAN CORPUSCULAR HGB CONC 32.3 g/dl (32.0-36.5); MEAN CORPUSCULAR VOLUME 93.1 fl (80.0-96.0); MONO # 0.5 10^3/uL (0.0-0.8); MONO % 6.5 % (2.0-8.0); NEUTROPHILS # 5.6 10^3/uL (1.5-8.5); NEUTROPHILS % 67.1 % (36.0-66.0); PLATELET COUNT, AUTOMATED 211 10^3/uL (150-450); RED BLOOD COUNT 4.66 10^6/uL (4.00-5.40); WHITE BLOOD COUNT 8.3 10^3/uL (4.0-10.0)
[2024-02-21 12:54] LABS: FERRITIN 284.4 NG/ML (7.3-270.7)
== END ==
LOC: M PLALAB 07:44
PROVIDERS: ATTEND Internal Medicine Hematology
DX: D50.9 Iron deficiency anemia, unspecified (principal)

== ENCOUNTER → 2024-06-15 | Outpatient (CLI) | payer BC ==
[~2024-06-15] MED LIST changes: +BUPR-597 PO; -BUPR300T92 PO
[2024-06-15 13:51] LABS: PERCENT SATURATION 22.4 % (13.2-45.0)
[2024-06-15 13:55] LABS: FERRITIN 199.6 NG/ML (7.3-270.7)
== END ==
LOC: M PLALAB 08:36
PROVIDERS: ATTEND Internal Medicine Hematology
DX: D50.9 Iron deficiency anemia, unspecified (principal)

== ENCOUNTER → 2024-06-15 | Outpatient (CLI) | payer BC ==
[2024-06-15 13:26] LABS: BASO % 0.6 % (0.0-1.0); EOS # 0.1 10^3/uL (0.0-0.5); EOS % 1.1 % (0.0-3.0); HEMATOCRIT 40.9 % (36.0-47.0); HEMOGLOBIN 13.5 g/dl (12.0-15.5); LYMPH % 27.8 % (24.0-44.0); MEAN CORPUSCULAR HEMOGLOBIN 29.9 pg (27.0-33.0); MEAN CORPUSCULAR VOLUME 90.7 fl (80.0-96.0); MONO # 0.4 10^3/uL (0.0-0.8); MONO % 5.9 % (2.0-8.0); NEUTROPHILS # 4.6 10^3/uL (1.5-8.5); NEUTROPHILS % 64.2 % (36.0-66.0); PLATELET COUNT, AUTOMATED 232 10^3/uL (150-450); RED BLOOD COUNT 4.51 10^6/uL (4.00-5.40); WHITE BLOOD COUNT 7.1 10^3/uL (4.0-10.0)
[2024-06-15 13:40] LABS: ERYTHROCYTE SEDIMENTATION RATE 22 mm/hr (0-20)
[2024-06-15 13:56] LABS: ALBUMIN 4.1 G/DL (3.2-5.2); ALKALINE PHOSPHATASE 114 U/L (46-116); ALT/SGPT 17 U/L (7.0-40); AST/SGOT 9 U/L (<34); BILIRUBIN,TOTAL 0.4 MG/DL (0.3-1.2); BLOOD UREA NITROGEN 20 MG/DL (9-23); CALCIUM LEVEL 9.2 MG/DL (8.5-10.1); CARBON DIOXIDE LEVEL 28 MMOL/L (20-31); CHLORIDE LEVEL 106 MMOL/L (98-107); CHOLESTEROL LEVEL 228 MG/DL (<200); CHOLESTEROL RISK RATIO 4.68 (<5); CREATININE FOR GFR 0.78 MG/DL (0.55-1.30); GLOMERULAR FILTRATION RATE > 60.0 (>58); GLUCOSE, FASTING 86 MG/DL (60-100); HDL CHOLESTEROL 48.7 MG/DL (>40); LDL CHOLESTEROL 153.1 MG/DL (<100); NON-HDL-C 179.3 MG/DL; POTASSIUM SERUM 4.3 MMOL/L (3.5-5.1); SODIUM LEVEL 139 MMOL/L (136-145); TOTAL PROTEIN 6.9 G/DL (5.7-8.2); TRIGLYCERIDES LEVEL 131 MG/DL (<150)
[2024-06-15 13:58] LABS: TOTAL 25(OH) VITAMIN D 32.1 NG/ML (20.0-100.0)
[2024-06-19 12:11] LABS: ANA PATTERN Nuclear, Homogeneous (NEGATIVE); ANA PATTERN 2 Nuclear, Speckled; ANA SCREEN, IFA POSITIVE (NEGATIVE)
[2024-06-19 21:12] LABS: COMPLEMENT TOTAL (CH50) 60 U/mL (31-60)
== END ==
LOC: M PLALAB 08:38
PROVIDERS: ATTEND Family Medicine
DX: M35.1 Other overlap syndromes (principal); R53.82 Chronic fatigue, unspecified; E55.9 Vitamin D deficiency, unspecified; F90.0 Attention-deficit hyperactivity disorder, predominantly inattentive type; Z13.220 Encounter for screening for lipoid disorders

== ENCOUNTER → 2024-08-28 | Outpatient (CLI) | payer BC ==
[2024-08-28 10:52] LABS: APPEARANCE, URINE HAZY (CLEAR); BACTERIA, URINE AUTO NEGATIVE (NEGATIVE); BILIRUBIN, URINE AUTO NEGATIVE (NEGATIVE); BLOOD, URINE BLOOD NEGATIVE (NEGATIVE); COLOR, URINE YELLOW (YELLOW); GLUCOSE, URINE (UA) AUTO NEGATIVE (NEGATIVE); KETONE, URINE AUTO NEGATIVE (NEGATIVE); LEUKOCYTE ESTERASE, URINE AUTO NEGATIVE (NEGATIVE); MUCUS, URINE SMALL (NEGATIVE); NITRITE, URINE AUTO NEGATIVE (NEGATIVE); PROTEIN, URINE AUTO NEGATIVE (NEGATIVE); RBC, URINE AUTO 0 /HPF (0-3); SQUAMOUS EPITHELIAL CELL UR AU 4 /HPF (0-6); WBC, URINE AUTO 0 /HPF (0-3)
[2024-08-28 11:06] LABS: CREATININE, URINE 194.6 MG/DL; MALB URINE SIEMENS < 3.0 MG/L; MAU/CREAT RATIO 1.5 MCG/MG (0.0-30.0)
[2024-08-29 22:53] LABS: ANTI SMITH(Sm) AB <1.0 NEG AI (<1.0 NEG)
== END ==
LOC: M PLALAB 07:12
PROVIDERS: ATTEND Family Medicine
DX: M32.9 Systemic lupus erythematosus, unspecified (principal)

== ENCOUNTER → 2024-10-15 | Outpatient (CLI) | payer BC ==
[2024-10-16 09:23] LABS: DEHYDROEPIANDROSTERONE SULFATE 125 mcg/dL (15-205)
[2024-10-17 16:43] LABS: HPV APTIMA Not Detected (Not Detected)
== END ==
LOC: M PLALAB 09:07
PROVIDERS: ATTEND Nurse Practitioner Family
DX: Z12.4 Encounter for screening for malignant neoplasm of cervix (principal); N92.0 Excessive and frequent menstruation with regular cycle
CPT/HCPCS: 36415; 82627; 83498; 84146; 84402; 84403; 87624; G0123

== ENCOUNTER → 2024-10-15 | Outpatient (CLI) | payer BC ==
[2024-10-15 13:10] LABS: BASO % 0.7 % (0.0-1.0); EOS % 0.7 % (0.0-3.0); HEMATOCRIT 40.3 % (36.0-47.0); LYMPH # 1.6 10^3/uL (1.5-5.0); MEAN CORPUSCULAR HGB CONC 32.3 g/dl (32.0-36.5); MONO # 0.3 10^3/uL (0.0-0.8); MONO % 6.1 % (2.0-8.0); NEUTROPHILS # 3.6 10^3/uL (1.5-8.5); NEUTROPHILS % 64.1 % (36.0-66.0); PLATELET COUNT, AUTOMATED 227 10^3/uL (150-450); RED BLOOD COUNT 4.48 10^6/uL (4.00-5.40); WHITE BLOOD COUNT 5.6 10^3/uL (4.0-10.0)
[2024-10-15 13:36] LABS: THYROID STIMULATING HORMONE 2.637 uIU/ML (0.55-4.78)
[2024-10-15 13:39] LABS: FREE T4 1.05 NG/DL (0.89-1.76)
== END ==
LOC: M PLALAB 09:09
PROVIDERS: ATTEND Internal Medicine Hematology
DX: D50.9 Iron deficiency anemia, unspecified (principal)

== ENCOUNTER → 2024-10-15 | Outpatient (CLI) | payer BC | LOC: M WHC 07:23 | PROVIDERS: ATTEND Nurse Practitioner Family | DX: Z12.31 Encounter for screening mammogram for malignant neoplasm of breast (principal); R92.313 Mammographic fatty tissue density, bilateral breasts ==

== ENCOUNTER → 2024-10-15 | Outpatient (CLI) | payer BC ==
[2024-10-15 13:05] LABS: BASO % 0.4 % (0.0-1.0); EOS # 0.1 10^3/uL (0.0-0.5); EOS % 0.9 % (0.0-3.0); HEMATOCRIT 40.4 % (36.0-47.0); HEMOGLOBIN 13.2 g/dl (12.0-15.5); LYMPH # 1.4 10^3/uL (1.5-5.0); LYMPH % 25.8 % (24.0-44.0); MEAN CORPUSCULAR HEMOGLOBIN 29.5 pg (27.0-33.0); MEAN CORPUSCULAR HGB CONC 32.7 g/dl (32.0-36.5); MEAN CORPUSCULAR VOLUME 90.2 fl (80.0-96.0); MONO # 0.3 10^3/uL (0.0-0.8); MONO % 6.3 % (2.0-8.0); NEUTROPHILS # 3.6 10^3/uL (1.5-8.5); NEUTROPHILS % 66.2 % (36.0-66.0); PLATELET COUNT, AUTOMATED 211 10^3/uL (150-450); RED BLOOD COUNT 4.48 10^6/uL (4.00-5.40); WHITE BLOOD COUNT 5.4 10^3/uL (4.0-10.0)
[2024-10-15 13:17] LABS: ERYTHROCYTE SEDIMENTATION RATE 17 mm/hr (0-20)
[2024-10-15 13:33] LABS: ALBUMIN 3.7 G/DL (3.2-5.2); BILIRUBIN,DIRECT 0.1 MG/DL (<0.4); BILIRUBIN,TOTAL 0.4 MG/DL (0.3-1.2); TOTAL PROTEIN 6.9 G/DL (5.7-8.2)
[2024-10-15 13:34] LABS: C REACTIVE PROTEIN QUANTITATIV 1.34 MG/DL (<1.0); CPK CREATINE PHOSPHOKINASE 72 U/L (34-145)
[2024-10-15 13:35] LABS: BLOOD UREA NITROGEN 15 MG/DL (9-23); COMPLEMENT C3 155.9 MG/DL (90.0-170.0); COMPLEMENT C4 34.6 MG/DL (12-36); CREATININE FOR GFR 0.74 MG/DL (0.55-1.30); GLOMERULAR FILTRATION RATE > 60.0 (>58); RHEUMATOID FACTOR QUANT 4.1 IU/ML (<14)
[2024-10-16 13:38] LABS: ANTI SCLERODERMA ANTIBODIES <1.0 NEG AI (<1.0 NEG); RNP ANTIBODY <1.0 NEG AI (<1.0 NEG); SM ANTIBODY <1.0 NEG AI (<1.0 NEG)
[2024-10-16 23:13] LABS: CYCLIC CITRULLINATED PEPTIDE < 16 UNITS (<20)
== END ==
LOC: M PLALAB 09:04
DX: R76.0 Raised antibody titer (principal); Z79.899 Other long term (current) drug therapy

== ENCOUNTER → 2025-01-08 | Outpatient (CLI) | payer BC | LOC: M RAD 12:54 | PROVIDERS: ATTEND Nurse Practitioner Family | DX: N92.0 Excessive and frequent menstruation with regular cycle (principal); R93.89 Abnormal findings on diagnostic imaging of other specified body structures ==

== ENCOUNTER 2025-01-14 07:55 | Outpatient (CLI) | payer BC ==
[~2025-01-14] VITALS: Ht 157.5 cm; Wt 74.1 kg
[~2025-01-14 07:55] MED LIST changes: +ALBUTEROL SULFATE 2.5MG/0.5ML INH NEB SOLN INH PRN; +EPINEPHrine INJ 1 MG/ML 1ML AMP IM PRN; +diphenhydrAMINE 50MG/ML VIAL IV PRN; +methylPREDNISolone 125MG 2ML VIAL IV PRN
[2025-01-14 08:05] VITALS: BP 126/66; O2SAT 98
[2025-01-14] MEDS: IRON SUCROSE 300 MG in NS 250 ML OVER 90 MIN. IV ONE (08:28)
[2025-01-14 10:10] VITALS: BP 123/64; O2SAT 97
== END 2025-01-14 10:06 ==
LOC: M INFU 07:55
PROVIDERS: ATTEND Internal Medicine Hematology
DX: D50.9 Iron deficiency anemia, unspecified (principal); Z88.0 Allergy status to penicillin; Z88.1 Allergy status to other antibiotic agents; Z88.2 Allergy status to sulfonamides
CPT/HCPCS: 96365; J1756

== ENCOUNTER 2025-01-21 08:00 | Outpatient (CLI) | payer BC ==
[~2025-01-21] VITALS: Ht 157.5 cm; Wt 74.0 kg
[2025-01-21] MEDS: IRON SUCROSE 300 MG in NS 250 ML IV ONE (08:39)
[2025-01-21 08:42] VITALS: BP 115/64; O2SAT 99
[2025-01-21 10:26] VITALS: BP 119/68; O2SAT 100
== END 2025-01-21 10:20 ==
LOC: M INFU 08:00
PROVIDERS: ATTEND Internal Medicine Hematology
DX: D50.9 Iron deficiency anemia, unspecified (principal); Z88.0 Allergy status to penicillin; Z88.2 Allergy status to sulfonamides; Z88.1 Allergy status to other antibiotic agents
CPT/HCPCS: 96365; J1756

== ENCOUNTER → 2025-02-11 | Outpatient (CLI) | payer BC ==
[~2025-02-11] MED LIST changes: -ALBUTEROL SULFATE 2.5MG/0.5ML INH NEB SOLN INH PRN; -EPINEPHrine INJ 1 MG/ML 1ML AMP IM PRN; -diphenhydrAMINE 50MG/ML VIAL IV PRN; -methylPREDNISolone 125MG 2ML VIAL IV PRN
[2025-02-11 14:27] LABS: BASO % 0.7 % (0.0-1.0); EOS # 0.1 10^3/uL (0.0-0.5); HEMATOCRIT 40.5 % (36.0-47.0); HEMOGLOBIN 13.2 g/dl (12.0-15.5); LYMPH # 2.1 10^3/uL (1.5-5.0); LYMPH % 35.4 % (24.0-44.0); MEAN CORPUSCULAR HEMOGLOBIN 28.2 pg (27.0-33.0); MEAN CORPUSCULAR HGB CONC 32.6 g/dl (32.0-36.5); MEAN CORPUSCULAR VOLUME 86.5 fl (80.0-96.0); MONO # 0.4 10^3/uL (0.0-0.8); MONO % 6.4 % (2.0-8.0); NEUTROPHILS # 3.3 10^3/uL (1.5-8.5); PLATELET COUNT, AUTOMATED 201 10^3/uL (150-450); RED BLOOD COUNT 4.68 10^6/uL (4.00-5.40); WHITE BLOOD COUNT 5.9 10^3/uL (4.0-10.0)
[2025-02-11 14:33] LABS: ERYTHROCYTE SEDIMENTATION RATE 13 mm/hr (0-20)
[2025-02-11 14:56] LABS: C REACTIVE PROTEIN QUANTITATIV 0.86 MG/DL (<1.0)
[2025-02-11 14:58] LABS: COMPLEMENT C3 153.4 MG/DL (90.0-170.0); COMPLEMENT C4 34.1 MG/DL (12-36); RHEUMATOID FACTOR QUANT < 3.5 IU/ML (<14)
[2025-02-11 14:59] LABS: ALBUMIN 3.9 G/DL (3.2-5.2); ALKALINE PHOSPHATASE 93 U/L (35-104); ALT/SGPT 18 U/L (7.0-40); AST/SGOT 9 U/L (<34); BILIRUBIN,DIRECT 0.1 MG/DL (<0.4); BILIRUBIN,TOTAL 0.4 MG/DL (0.3-1.2); BLOOD UREA NITROGEN 18 MG/DL (9-23); CPK CREATINE PHOSPHOKINASE 73 U/L (34-145); CREATININE FOR GFR 0.81 MG/DL (0.55-1.30); GLOMERULAR FILTRATION RATE > 60.0 (>58); TOTAL PROTEIN 6.6 G/DL (5.7-8.2)
== END ==
LOC: M PLALAB 11:54
DX: M35.9 Systemic involvement of connective tissue, unspecified (principal); R76.8 Other specified abnormal immunological findings in serum; R53.83 Other fatigue

== ENCOUNTER 2025-05-31 11:58 | Observation (INO) | payer BC ==
[~2025-05-31] VITALS: Ht 157.5 cm; Wt 76.2 kg
[~2025-05-31 11:58] MED LIST changes: +AMPH1CAP5 PO; -BUPR-597 PO; +BUPR-766 PO; +ESOM40CA35 PO; +HYDR200T46 PO; +HYDROmorphone HCL 2 MG/ML 1 ML VIAL As Ordered ONE; +KETOROLAC 30 MG/ML 1 ML VIAL As Ordered ONE; +LIDOCAINE 2% 100 MG/5 ML SDV (FOR ANES.) As Ordered ONE; +MIDAZOLAM INJ 2 MG/2 ML VIAL As Ordered ONE; +ONDANSETRON 4MG 2ML VIAL As Ordered ONE; +ROCURONIUM BROMIDE 50MG/5ML VIAL As Ordered ONE; +SUGAMMADEX SODIUM 500 MG/5 ML VIAL As Ordered ONE; +ceFAZolin SOD 2 GM IV ONCE IV ONE; +dexAMETHasone 4 MG/ML 1 ML VIAL As Ordered ONE
[2025-05-31] MEDS ORDERED: LABETALOL 100 MG/20 ML VIAL As Ordered ONE (12:18)
[2025-05-31] MEDS: LR 1,000 ML IV SCH ×3 (12:20→18:55)
[2025-05-31 12:45] LABS: PLATELET COUNT, AUTOMATED 211 10^3/uL (150-450)
[2025-05-31] MEDS ORDERED: IBUP-1022 PO (16:00)
[2025-05-31] MEDS ORDERED: OXYC1TAB23 PO (16:00)
[2025-05-31] MEDS: ONDANSETRON 4MG 2ML VIAL IV PRN (16:19)
[2025-05-31] MEDS: HYDROMORPHONE HCL 0.5 MG/0.5 ML SYRINGE IV PRN (16:19)
[2025-05-31] MEDS: PROMETHAZINE 25MG/ML 1ML VIAL IV PRN (16:39)
[2025-05-31 18:50] VITALS: BP 99/77; TEMP 97.7; O2SAT 100
[2025-05-31] MEDS ORDERED: ONDANSETRON 4MG 2ML VIAL IV PRN (18:55)
[2025-05-31] MEDS: KETOROLAC 30 MG/ML 1 ML VIAL IV PRN (19:31)
[2025-05-31 19:50] VITALS: BP 105/70; TEMP 98.6; O2SAT 94
[2025-05-31 20:50] VITALS: BP 101/64; TEMP 98.8; O2SAT 97
[2025-05-31] MEDS: OMEPRAZOLE 20MG CAP PO SCH (21:08)
[2025-05-31] MEDS: DOCUSATE SODIUM 100 MG CAPSULE PO SCH (21:08)
[2025-05-31 21:50] VITALS: BP 101/64; TEMP 98.6; O2SAT 98
[2025-05-31 22:30] VITALS: BP 84/51; TEMP 98; O2SAT 96
[2025-05-31 23:03] VITALS: BP 85/51; TEMP 98.4; O2SAT 94
[2025-05-31] MEDS: LR 1,000 ML IV ONE (23:32)
[2025-06-01 00:33] VITALS: BP 91/53; TEMP 97.5; O2SAT 97
[2025-06-01 01:50] VITALS: BP 93/51; TEMP 97.5; O2SAT 98
[2025-06-01 04:40] VITALS: BP 107/57; TEMP 98.2; O2SAT 97
[2025-06-01] MEDS: buPROPion **XL** 150 MG TABLET PO SCH (08:06)
[2025-06-01] MEDS: HYDROXYCHLOROQUINE 200 MG TAB PO SCH (08:06)
[2025-06-01 08:19] VITALS: BP 103/58; TEMP 98.1; O2SAT 98
[2025-06-01] MEDS ORDERED: COLA1TAB PO (11:01)
== END 2025-06-01 11:54 | disposition home or self-care (01) ==
LOC: M SDC 11:58 → M MSPAV 11:59 → M SDC 18:50 → M MSPAV 06-01 11:54 → M SDC 06-01 11:54
PROVIDERS: ADMIT Specialist; ATTEND Specialist
DX: N39.3 Stress incontinence (female) (male) (principal); N81.2 Incomplete uterovaginal prolapse; N84.0 Polyp of corpus uteri; G47.30 Sleep apnea, unspecified; Z88.1 Allergy status to other antibiotic agents; Z88.0 Allergy status to penicillin; Z88.2 Allergy status to sulfonamides; Z79.899 Other long term (current) drug therapy
CPT/HCPCS: 36415; 57250; 57283; 57288; 58571; 81025; 85027; 86850; 86900; 86901; 88307; 96374; 96376; C1771; J0665; J1100; J1171; J1885; J2250; J2405; J2550; J3010; S2900

== ENCOUNTER → 2025-06-17 | Outpatient (CLI) | payer BC ==
[~2025-06-17] MED LIST changes: +COLA1TAB PO; -HYDROmorphone HCL 2 MG/ML 1 ML VIAL As Ordered ONE; -KETOROLAC 30 MG/ML 1 ML VIAL As Ordered ONE; -LIDOCAINE 2% 100 MG/5 ML SDV (FOR ANES.) As Ordered ONE; -MIDAZOLAM INJ 2 MG/2 ML VIAL As Ordered ONE; -ONDANSETRON 4MG 2ML VIAL As Ordered ONE; -ROCURONIUM BROMIDE 50MG/5ML VIAL As Ordered ONE; -SUGAMMADEX SODIUM 500 MG/5 ML VIAL As Ordered ONE; -ceFAZolin SOD 2 GM IV ONCE IV ONE; -dexAMETHasone 4 MG/ML 1 ML VIAL As Ordered ONE
[2025-06-17 14:07] LABS: PLATELET COUNT, AUTOMATED 193 10^3/uL (150-450)
[2025-06-17 14:12] LABS: C REACTIVE PROTEIN QUANTITATIV 0.67 MG/DL (<1.0)
[2025-06-17 14:16] LABS: ALT/SGPT 13 U/L (7.0-40); AST/SGOT 12 U/L (<34); CALCIUM LEVEL 8.8 MG/DL (8.5-10.1); CARBON DIOXIDE LEVEL 28 MMOL/L (20-31); CHLORIDE LEVEL 106 MMOL/L (98-107); CHOLESTEROL LEVEL 185 MG/DL (<200); CHOLESTEROL RISK RATIO 3.54 (<5); CREATININE FOR GFR 0.75 MG/DL (0.55-1.30); GLOMERULAR FILTRATION RATE > 90.0 (>58); IRON (FE) 57 UG/DL (50-170); LDL CHOLESTEROL 101.6 MG/DL (<100); NON-HDL-C 132.8 MG/DL; PERCENT SATURATION 21.4 % (13.2-45.0); POTASSIUM SERUM 4.2 MMOL/L (3.5-5.1); SODIUM LEVEL 144 MMOL/L (136-145); TRIGLYCERIDES LEVEL 156 MG/DL (<150)
[2025-06-17 14:19] LABS: TOTAL 25(OH) VITAMIN D 40.4 NG/ML (20.0-100.0)
== END ==
LOC: M PLALAB 09:32
PROVIDERS: ATTEND Family Medicine
DX: M32.9 Systemic lupus erythematosus, unspecified (principal); D50.9 Iron deficiency anemia, unspecified; N92.0 Excessive and frequent menstruation with regular cycle; Z13.220 Encounter for screening for lipoid disorders; R53.82 Chronic fatigue, unspecified; E55.9 Vitamin D deficiency, unspecified

== ENCOUNTER → 2025-09-25 | Outpatient (CLI) | payer BC ==
[~2025-09-25] MED LIST changes: -IBUP-1022 PO; +IBUP600T42 PO
== END ==
LOC: M PLALAB 07:04
PROVIDERS: ATTEND Family Medicine
DX: D50.9 Iron deficiency anemia, unspecified (principal); N92.0 Excessive and frequent menstruation with regular cycle